=== PATIENT | female | born 2000 | race Caucasian/White ===

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

== ENCOUNTER → 2023-08-15 16:16 | Outpatient (CLI) | payer BC, OTHER, MEDICAID, SELFPAY ==
--- NOTE | 2023-08-15 16:22 | DI.RAD.S_ITS ---
PROCEDURE: XR KNEE RT 3V INDICATIONS: Right knee pain x2 years TECHNIQUE: 3 views of the knee were acquired. COMPARISON: None. FINDINGS: Bones: No fractures or dislocations. No suspicious bony lesions. Soft tissues: No joint effusion. No suspicious soft tissue calcifications. IMPRESSION: No acute bony abnormality or significant effusion. MRI could be considered for further evaluation. Dictated by: Ismael Coronado M.D. on 08/15/2023 at 20:48 Approved by: Ismael Coronado M.D. on 08/15/2023 at 20:49
== END ==
PROVIDERS: PCP Pediatrics; Referring Provider Physician Assistant; Visit Provider Physician Assistant
DX: M25.561 Pain in right knee (principal)
CPT/HCPCS: 73562

== ENCOUNTER 2024-01-27 14:36 | Emergency (ER) | payer BC, OTHER, MEDICAID, SELFPAY ==
[2024-01-27 15:11] VITALS: BP 118/79; PULSE 88; RESP 16; O2SAT 100; BMI 17.6
[2024-01-27 17:20] VITALS: BP 107/70; PULSE 74; RESP 16; O2SAT 100
--- NOTE | 2024-01-27 18:02 | DI.RAD.S_ITS ---
PROCEDURE: XR ACUTE ABDOMEN SERIES INDICATIONS: Vomiting blood TECHNIQUE: One view chest and two views of the abdomen were acquired. COMPARISON: None. FINDINGS: Surgical changes and devices: None. Chest: Lungs are clear. Heart size is normal. No pleural effusions. No pneumoperitoneum. Abdomen: Bowel gas pattern is nonobstructive. No suspicious calcifications. Visualized solid organ contours appear normal. Bones: No suspicious bony lesions. IMPRESSION: No acute cardiopulmonary process. Nonobstructive bowel gas pattern. Approved by: Francheska Jose M.D.,Ph.D. on 01/27/2024 at 20:03
--- NOTE | 2024-01-27 19:16 | PC.NURSE ---
This RN went in to introduce self and explain process to patient. Patient asked how long it was going to take, I educated I couldn't give a time estimate nor would she be called with the results from the xray she had already had taken. Patient stated that she didn't want to stay and would be leaving. Patient ambulated out of the department without difficulty.
--- NOTE | 2024-01-27 19:32 | PC.NURSE ---
This RN went in to introduce self and explain process to patient. Patient asked how long it was going to take, I educated I couldn't give a time estimate nor would see be called with the results from the xray she had already had taken. Patient stated she didn't want to stay and would be leaving. Patient ambulated out of the department without difficulty.
== END 2024-01-27 19:17 | disposition left against medical advice (07) ==
PROVIDERS: Emergency Provider Emergency Medicine; PCP Pediatrics
DX: K92.0 Hematemesis (principal)
CPT/HCPCS: 74022; 99281

== ENCOUNTER → 2024-04-05 09:13 | Outpatient (CLI) | payer BC, OTHER, MEDICAID, SELFPAY ==
[2024-04-05 09:57] LABS: Add Manual Diff / Slide Review NO; Basophils Absolute Auto 0 /uL (0-100); Basophils Percent Auto 0.9 % (0-2); Eosinophils Absolute Auto 200 /uL (0-450); Eosinophils Percent Auto 3.2 % (2-4); Hemoglobin 12.8 g/dL (12.0-16.0); Lymphocytes Absolute Auto 1600 /uL (1100-4500); Lymphocytes Percent Auto 28.9 % (25-40); Mean Corpuscular HGB Conc 33.8 % (30-36); Mean Corpuscular Hemoglobin 30.1 PG (26-34); Mean Corpuscular Volume 89.1 fL (80-100); Monocytes Absolute Auto 600 /uL (0-900); Monocytes Percent Auto 10.3 % (3-14); Neutrophils Absolute Auto 3100 /uL (1500-7000); Neutrophils Percent Auto 56.7 % (50-75); Platelet Count 242 X10^3/uL (150-400); Red Blood Cell Count 4.26 X10^6/uL (4.0-5.2); Red Cell Distribution Width 13.5 % (11.6-14.8); White Blood Cell Count 5.4 X10^3/uL (4.5-11.0)
[2024-04-05 10:19] LABS: Alanine Aminotransferase 14 IU/L (<35); Albumin 4.4 g/dL (3.5-5.0); Albumin Globulin Ratio 1.9 (1.0-2.8); Alkaline Phosphatase 45 U/L (38-126); Aspartate Aminotransferase 22 IU/L (14-36); BUN Creatinine Ratio 17.2 (6-22); Bilirubin Total 0.7 mg/dL (0.2-1.3); Blood Urea Nitrogen 11 mg/dL (7-17); Calcium 9.5 mg/dL (8.4-10.2); Carbon Dioxide 23 mmol/L (22-32); Chloride 106 mmol/L (98-107); Estimated Glomerular Filt Rate > 60 mL/min (>60); Globulin 2.3 g/dL (1.7-4.1); Glucose 86 mg/dL (70-100); HEMOLYSIS < 15 (0-50); Potassium 4.4 mmol/L (3.4-5.1); Sodium 136 mmol/L (137-145); Total Protein 6.7 g/dL (6.3-8.2)
[2024-04-05 10:45] LABS: TSH w/ Reflex to FT4 2.23 uIU/mL (0.47-4.68)
[2024-04-06 12:36] LABS: Interpretation Negative (Negative)
== END ==
PROVIDERS: PCP Family Medicine; Referring Provider Family Medicine; Visit Provider Family Medicine
DX: R11.0 Nausea (principal); R06.02 Shortness of breath; Z87.11 Personal history of peptic ulcer disease
CPT/HCPCS: 36415; 80053; 83013; 84443; 85025

== ENCOUNTER → 2024-04-10 15:12 | Outpatient (CLI) | payer BC, OTHER, MEDICAID, SELFPAY ==
--- NOTE | 2024-04-10 15:20 | DI.MRI.S_ITS ---
PROCEDURE: MR KNEE RT WO CON INDICATIONS: Chrocin right knee pain TECHNIQUE: Noncontrast sagittal PD fast spin echo and T2 fast spin echo with fat saturation, sagittal 3-D FLASH with fat saturation; coronal T1 spin echo and PD fast spin echo with fat saturation, and axial PD fast spin echo with fat saturation through the knee. COMPARISON: None. FINDINGS: Image quality: Excellent. Anterior cruciate ligament: Intact. Posterior cruciate ligament: Intact. Medial collateral ligament: Intact. Lateral collateral ligament: Intact. Medial meniscus: Fluid signal is seen at the superior meniscocapsular junction along the posterior horn of the medial meniscus, which could indicate meniscocapsular tearing. Lateral meniscus: Intact. Medial and lateral tendons: The semimembranosus tendon insertions appear intact. Visualized portions of the pes anserinus tendons appear normal. The popliteus tendon is intact. Iliotibial band appears normal. Anterior structures: The quadriceps and patellar tendons appear intact. No patellar subluxation. No femoral trochlear dysplasia or ventral trochlear prominence. No edema in the infrapatellar fat pad. Bones and cartilage: No bone marrow contusions or fractures. Medial femorotibial cartilage: No focal cartilage defect. Lateral femorotibial cartilage: No focal cartilage defect. Patellofemoral cartilage: No focal cartilage defect. Soft tissues: There is a small joint effusion. Trace medial popliteal cyst. The musculature surrounding the knee is normal in bulk. IMPRESSION: 1. Questionable partial meniscocapsular tearing at the posterior horn of the medial meniscus. 2. Cruciate and collateral ligaments are intact. No acute trabecular bone injury or focal cartilage defect. Lateral meniscus is intact. 3. Small joint effusion. Approved by: Edu Arnett M.D. on 04/12/2024 at 20:00
== END ==
LOC: MRI 15:17
PROVIDERS: PCP Family Medicine; Referring Provider Family Medicine; Visit Provider Family Medicine
DX: M25.561 Pain in right knee (principal); M25.461 Effusion, right knee
CPT/HCPCS: 73721

== ENCOUNTER → 2024-04-14 14:57 | Outpatient (CLI) | payer BC, OTHER, MEDICAID, SELFPAY | PROVIDERS: Family Provider Family Medicine; PCP Family Medicine; Referring Provider Family Medicine; Visit Provider Family Medicine | DX: R06.02 Shortness of breath (principal) | CPT/HCPCS: 94060; 94726; 94729 ==

== ENCOUNTER 2024-07-09 09:00 | Outpatient (RCR) | payer BC, OTHER, MEDICAID, SELFPAY ==
--- NOTE | 2024-04-16 15:47 | PT.OIE ---
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 Address: [address] [place] [address], [facility] Email: [email or web address] Physical Therapy Initial Evaluation PT-OP-A Visit Information Start: 04/16/24 07:28 Freq: Status: Active Protocol: Document 04/16/24 08:15 NM (Rec: 04/16/24 09:03 NM [id number]) Out-Patient Physical Therapy Visit Information Visit Information Visit Type Initial Evaluation Visit Note 30 visits max Visit Start Time 08:16 Visit Stop Time 09:00 Visit Number 1 Evaluation Information Evaluation Date 04/16/24 Precautions Precautions hx of osteochondritis dessicans of R knee PT-OP-B Current Condition Start: 04/16/24 07:28 Freq: Status: Active Protocol: Document 04/16/24 08:15 NM (Rec: 04/16/24 09:03 NM [id number]) Current Condition History of Current Condition Onset Date chronic, 10 years ago Current Complaints pain, limited ROM History of Current Condition Pt reports that she injured her R knee with hyperextension at 10 years ago, states dx with OCD. States that she did not have any bracing or crutches; no surgery, no other treatment. Her R knee is bothering her, since she stepped in a rabbit hole at time of injury. She states it began getting worse 5 years ago, states became more aware of it. She states that is when she got a job, she was standing more which caused pain. Pt is planning to get in August, wants to get checked out for her knee. Recently, reports no changes other than hurting more frequently with activity, which is what prompted her to seek help. Pt reports that her knee bothers her when she works out (squats, lunges), going up stairs, unable to run very much, difficulty with cutting or turning, hills, uneven grounds, jumping. Pt reports that her knee has catches 2x in past (not recent, states can move and it will unlock), within last 7 years her knee has given out at least 5 times, cracks but not painful. Pt has gone to chiropractor, has has manual treatment. She has not seen an orthopedist. States that knee brace (sock brace)- compression helps on worse days. Prior Treatments and Tests MRI March 2024: questionable partial meniscocapsular tearing at posterior horn of medial meniscus, intact cruciate and collateral ligaments, no acute trabecular bone injury or focal cartilage defect, small joint effusion Treatment Goals Patient/Caregiver Goals increase ROM, decrease discomfort levels Current Functional Impairments (Reported) Functional Limitations- Recreation/ work out (does not do a lot of Hobbies stretching)- every other day light gardening 3x/wk (1 year) one year ago 1x/day (at home- body wt) PT-OP-C Subjective Start: 04/16/24 07:28 Freq: Status: Active Protocol: Document 04/16/24 08:15 NM (Rec: 04/16/24 09:03 NM [id number]) OP-PT Subjective Patient Comments Patient Comments Pt consents to participate in evaluation Patient Questionnaires Lower Extremity Functional Scale LEFS Score 49/80 OP-PT Pain Assessment Location R knee Pain Location Details anterior, near patellar tendon Intensity 5 Scale Used Numeric (0 - 10) Description Aching,Dull,Sharp Description- Other average 3/10 Frequency Frequent Pain Duration 30 min Pain Aggravating Factors ADL's,Activity,Exercise, Standing,Walking,Stair Climbing,Bending,Lifting Other Pain Aggravating Factors lunges Pain Alleviating Factors Massage,Rest Other Pain Alleviating Factors stretching PT-OP-E Functional Tests Start: 04/16/24 07:28 Freq: Status: Active Protocol: Document 04/16/24 08:15 NM (Rec: 04/16/24 09:03 NM [id number]) Functional Tests Squat Test Score 1 Comments pain immediately after in anterior PT-OP-F Manual Assessment Start: 04/16/24 07:28 Freq: Status: Active Protocol: Document 04/16/24 08:15 NM (Rec: 04/16/24 09:03 NM [id number]) Manual Assessments Soft Tissue Assessment Soft Tissue Mobility Assessment Increased HS tightness bilaterally, R>L; small effusion around R knee Joint Mobility Assessment Joint Mobility Assessment Lacking R knee extension in stance, limited patellar mobility PT-OP-G Mobility & Gait Start: 04/16/24 07:28 Freq: Status: Active Protocol: Document 04/16/24 08:15 NM (Rec: 04/16/24 09:03 NM [id number]) OP Gait Assessment Gait Gait Assistance Required: Independent Distance (Feet) 150 Assistive Devices Assistive Device None Gait Deviations General Gait Pattern Antalgic Factors Limiting Gait Function Factors Limiting Gait Function Decreased Activity Tolerance, Decreased Strength,Limited Range of Motion Comments Gait Comments Demos slight external rotation of R knee, slight decrease in foot clearance Stair Climbing Evaluation Technique/Endurance Stair Climbing Technique Step Over Step Number of Steps Climbed 4 Stair Climbing Set # Repetitions (reps) 1 Comments Stair Climbing Comments Demos valgus of R knee, pain with stepping down fro 4 and 6 steps. Mild pain with step up PT-OP-J Posture/Palpation/Skin Start: 04/16/24 07:28 Freq: Status: Active Protocol: Document 04/16/24 08:15 NM (Rec: 04/16/24 09:03 NM [id number]) Posture Evaluation Position Standing Head/C-Spine Posture Forward Head Pelvis Posture Anteriorly Tilted Weight Distribution Balanced Hip Posture (L) Externally Rotated,(R) Externally Rotated Knee Posture (L) Genu Valgus,(R) Genu Valgus,(R) Excess Flexion Patellar Posture (L) Superior,(R) Superior,(R) Medially Tilted Ankle/Foot Posture (L) Neutral,(R) Neutral Comments Posture Comments less knee ext R Palpation Assessment Location R knee Palpation Details no joint line tenderness tenderness only patellar tendon, inferior pole of patellar, peripatellar PT-OP-K Range of Motion Start: 04/16/24 07:28 Freq: Status: Active Protocol: Document 04/16/24 08:15 NM (Rec: 04/16/24 09:03 NM [id number]) Hip Goniometric Range of Motion Hip Right Flexion w/Knee Flexed 110 Internal Rotation 35 External Rotation 30 Left Flexion w/Knee Flexed 120 Internal Rotation 40 External Rotation 30 Knee Goniometric Range of Motion Knee Right Flexion Active (degrees) 145 Extension Active (degrees) 6 Comments HS length 110 in fernanda position Left Flexion Active (degrees) 146 Extension Active (degrees) 0 Comments HS length 105 deg in fernanda position Ankle and Foot Goniometric Range of Motion Ankle and Foot Right Dorsiflexion with Knee Flexed 6 Left Dorsiflexion with Knee Flexed 5 PT-OP-L Special Tests Start: 04/16/24 07:28 Freq: Status: Active Protocol: Document 04/16/24 08:15 NM (Rec: 04/16/24 09:03 NM [id number]) Special Tests Knee Special Tests Samantha Test Test Results + Comments clicking present but no increase in pain Apley's Compression Test Results - PT-OP-M Strength Start: 04/16/24 07:28 Freq: Status: Active Protocol: Document 04/16/24 08:15 NM (Rec: 04/16/24 09:03 NM [id number]) Hip Strength Hip Manual Muscle Testing Right Flexion (L2) 4- Good- Extension (S1) 4- Good- Abduction 4- Good- Adduction 4 Good External Rotation 4 Good Internal Rotation 4 Good Left Flexion (L2) 4- Good- Extension (S1) 4 Good Abduction 4 Good Adduction 4- Good- External Rotation 4 Good Internal Rotation 4 Good Knee Strength Knee Manual Muscle Testing Right Flexion (S2) 4 Good Extension (L3) 4 Good Comments pain with knee extension at patellar tendon Left Flexion (S2) 4 Good Extension (L3) 4 Good PT-OP-Q Treatments Start: 04/16/24 07:28 Freq: Status: Active Protocol: Document 04/16/24 08:15 NM (Rec: 04/16/24 09:03 NM [id number]) Therapeutic Exercises Supine Exercises HS stretch Supine Exercise Name HEP Side right Equipment Used strap Reps/Minutes 60 Comments cueing for form Sitting Exercises quad set Sitting Exercise Name HEP Side right Equipment Used towel roll under knee Reps/Minutes 10x3 Comments cued pain free submaximal contraction heel slides Sitting Exercise Name AROM > AAROM Side right Equipment Used strap assist, pillow case at foot Reps/Minutes 10 Comments cued remain pain free with flex > ext transition Self-Care/Home Management Treatment Education Patient Education Joint Protection,Pain Management Other Education Educated to limit squatting, lunges, running due to hx of OCD; recommended to perform biking and non-aggravating activities PT-OP-T Assessment and Plan Start: 04/16/24 07:28 Freq: Status: Active Protocol: Document 04/16/24 08:15 NM (Rec: 04/16/24 09:03 NM [id number]) Physical Therapy Assessment Rehab Potential Rehabilitation Potential Good Evaluation Complexity Number of Personal Factors/Comorbidities 3 or More Number of Body Systems Impaired 3 Clinical Presentation at Evaluation Stable Impairments Impairments Activity Tolerance,Balance, Functional Activities, Functional Mobility,Gait,Pain, Posture,ROM,Sensation,Soft Tissue Mobility,Strength, Transfers Goals Five Impairment pain with stairs Short Term Goal (STG) Pt will be able to perform at least 8 step ups and step downs with R knee pain <5/10 in order to demonstrate improved form and symptom management STG Duration 8 weeks Intermediate Goal (LTG) Pt will report no limitation while performing standard flight of stairs or when ambulating on uneven surfaces in order to demonstrate improved symptom management LTG Duration 12 weeks Four Impairment pain at rest and with activity Short Term Goal (STG) Pt will report < 3/10 R knee pain at rest to demonstrate improved symptom management STG Duration 8 weeks Senior Mechanical Technician Goal (LTG) Pt will report < 3/10 R knee pain with activity to demonstrate improved symptom management LTG Duration 12 weeks Three Impairment pain with exercise Short Term Goal (STG) Pt will be provided education on safe exercise with HEP and will report compliance with HEP at least 3x/wk in order to maximize progression with PT. STG Duration 3 weeks Intermediate Goal (LTG) Pt will report compliance with HEP or independent exercise at least 3x/wk in order to demonstrate improved carryover and maintenance with progression LTG Duration 12 weeks Two Impairment strength R knee Short Term Goal (STG) Pt will improve R knee flexion /extension and R hip flexion/ abduction/extension strength to at least 4+/5 MMT in order to demonstrate increased strength for exercise and gait STG Duration 8 weeks Intermediate Goal (LTG) Pt will improve R knee flexion /extension and R hip flexion/ abduction/extension strength to at least 5/5 MMT in order to demonstrate increased strength for exercise and gait LTG Duration 12 weeks One Impairment R knee extension AROM limited to 6 deg Short Term Goal (STG) Pt will improve R knee extension AROM to at least 3 deg in order to demonstrate improved TKE for gait STG Duration 6 weeks Senior Mechanical Technician Goal (LTG) Pt will improve R knee extension AROM to <3 deg in order to demonstrate improved TKE for gait LTG Duration 12 weeks Assessment Summary Assessment Pt is a 24 y.o. female presenting with chronic R knee pain following injury 10 years ago. Pt was diagnosed following injury with osteochondritis dessicans, but she did not have any further intervention. Pt currently has impairments with ROM, strength, gait, balance, activity tolerance, pain management, exercise, and QOL. She has mild limitations in R knee extension, and she has pain with resisted knee extension. Pt's symptoms are focused near her patellar tendon and under the patella. She had had both radiographs and MRI, which indicate possible pathology of posterior horn of her medial meniscus. PT educated pt on exam findings and plan of care . Pt would benefit from skilled PT for R knee mobility , progressive BLE strengthening, flexibility, and progression into non- aggravating exercise in order to improve activity tolerance and symptom management. Physical Therapy Plan Frequency and Duration Frequency of Treatment 1-2x/wk Duration of treatment (weeks) 12 Plan of Care Start Date 04/16/24 Plan of Care End Date 07/09/24 Therapeutic Interventions Therapeutic Interventions Balance Training,Gait Training ,Home Exercise Program,Joint Mobilizations,Manual Therapy, Neuromuscular Re-education, Orthotic/Prosthetic Management ,Patient/Caregiver Education, Self-Care/Home Management, Sensory Integration,Soft Tissue Mobilization,Taping, Therapeutic Activities, Therapeutic Exercises Modalities Cold Pack/Ice Massage,Electric Stimulation,Hot Packs, Ultrasound Next Visit Focus/Plan Next Note Type Treatment Note Next Visit Plan SAQ vs LAQ, sidelying hip abduction, squat retraining, heel slides, bridge, quad and HS stretch Manual: STM and joint mobilizations Plan of care: proprioception
--- NOTE | 2024-04-20 08:58 | PT.OTN ---
Current Diagnoses Pain in unspecified knee (04/20/24) Stiffness of right knee, not elsewhere classified (04/20/24) Other lack of coordination (04/20/24) Weakness (04/20/24) Physical Therapy Treatment Note PT-OP-A Visit Information Start: 04/16/24 07:28 Freq: Status: Active Protocol: Document 04/20/24 08:11 NM (Rec: 04/20/24 08:58 NM [id number]) Out-Patient Physical Therapy Visit Information Visit Information Visit Type Treatment Note Visit Note 30 visits max Visit Start Time 08:15 Visit Stop Time 08:55 Visit Number 2 Evaluation Information Evaluation Date 04/16/24 Precautions Precautions hx of osteochondritis dessicans of R knee PT-OP-B Current Condition Start: 04/16/24 07:28 Freq: Status: Active Protocol: Document 04/16/24 08:15 NM (Rec: 04/16/24 09:03 NM [id number]) Current Condition History of Current Condition Onset Date chronic, 10 years ago Current Complaints pain, limited ROM History of Current Condition Pt reports that she injured her R knee with hyperextension at 10 years ago, states dx with OCD. States that she did not have any bracing or crutches; no surgery, no other treatment. Her R knee is bothering her, since she stepped in a rabbit hole at time of injury. She states it began getting worse 5 years ago, states became more aware of it. She states that is when she got a job, she was standing more which caused pain. Pt is planning to get in August, wants to get checked out for her knee. Recently, reports no changes other than hurting more frequently with activity, which is what prompted her to seek help. Pt reports that her knee bothers her when she works out (squats, lunges), going up stairs, unable to run very much, difficulty with cutting or turning, hills, uneven grounds, jumping. Pt reports that her knee has catches 2x in past (not recent, states can move and it will unlock), within last 7 years her knee has given out at least 5 times, cracks but not painful. Pt has gone to chiropractor, has has manual treatment. She has not seen an orthopedist. States that knee brace (sock brace)- compression helps on worse days. Prior Treatments and Tests MRI March 2024: questionable partial meniscocapsular tearing at posterior horn of medial meniscus, intact cruciate and collateral ligaments, no acute trabecular bone injury or focal cartilage defect, small joint effusion Treatment Goals Patient/Caregiver Goals increase ROM, decrease discomfort levels Current Functional Impairments (Reported) Functional Limitations- Recreation/ work out (does not do a lot of Hobbies stretching)- every other day light gardening 3x/wk (1 year) one year ago 1x/day (at home- body wt) PT-OP-C Subjective Start: 04/16/24 07:28 Freq: Status: Active Protocol: Document 04/20/24 08:11 NM (Rec: 04/20/24 08:58 NM [id number]) OP-PT Subjective Patient Comments Patient Comments Pt reports that she had a little pain after the evaluation, but states resolved quickly. Reports HEP was helpful PT-OP-E Functional Tests Start: 04/16/24 07:28 Freq: Status: Active Protocol: Document 04/16/24 08:15 NM (Rec: 04/16/24 09:03 NM [id number]) Functional Tests Squat Test Score 1 Comments pain immediately after in anterior PT-OP-F Manual Assessment Start: 04/16/24 07:28 Freq: Status: Active Protocol: Document 04/16/24 08:15 NM (Rec: 04/16/24 09:03 NM [id number]) Manual Assessments Soft Tissue Assessment Soft Tissue Mobility Assessment Increased HS tightness bilaterally, R>L; small effusion around R knee Joint Mobility Assessment Joint Mobility Assessment Lacking R knee extension in stance, limited patellar mobility PT-OP-G Mobility & Gait Start: 04/16/24 07:28 Freq: Status: Active Protocol: Document 04/16/24 08:15 NM (Rec: 04/16/24 09:03 NM [id number]) OP Gait Assessment Gait Gait Assistance Required: Independent Distance (Feet) 150 Assistive Devices Assistive Device None Gait Deviations General Gait Pattern Antalgic Factors Limiting Gait Function Factors Limiting Gait Function Decreased Activity Tolerance, Decreased Strength,Limited Range of Motion Comments Gait Comments Demos slight external rotation of R knee, slight decrease in foot clearance Stair Climbing Evaluation Technique/Endurance Stair Climbing Technique Step Over Step Number of Steps Climbed 4 Stair Climbing Set # Repetitions (reps) 1 Comments Stair Climbing Comments Demos valgus of R knee, pain with stepping down fro 4 and 6 steps. Mild pain with step up PT-OP-J Posture/Palpation/Skin Start: 04/16/24 07:28 Freq: Status: Active Protocol: Document 04/16/24 08:15 NM (Rec: 04/16/24 09:03 NM [id number]) Posture Evaluation Position Standing Head/C-Spine Posture Forward Head Pelvis Posture Anteriorly Tilted Weight Distribution Balanced Hip Posture (L) Externally Rotated,(R) Externally Rotated Knee Posture (L) Genu Valgus,(R) Genu Valgus,(R) Excess Flexion Patellar Posture (L) Superior,(R) Superior,(R) Medially Tilted Ankle/Foot Posture (L) Neutral,(R) Neutral Comments Posture Comments less knee ext R Palpation Assessment Location R knee Palpation Details no joint line tenderness tenderness only patellar tendon, inferior pole of patellar, peripatellar PT-OP-K Range of Motion Start: 04/16/24 07:28 Freq: Status: Active Protocol: Document 04/16/24 08:15 NM (Rec: 04/16/24 09:03 NM [id number]) Hip Goniometric Range of Motion Hip Right Flexion w/Knee Flexed 110 Internal Rotation 35 External Rotation 30 Left Flexion w/Knee Flexed 120 Internal Rotation 40 External Rotation 30 Knee Goniometric Range of Motion Knee Right Flexion Active (degrees) 145 Extension Active (degrees) 6 Comments HS length 110 in fernanda position Left Flexion Active (degrees) 146 Extension Active (degrees) 0 Comments HS length 105 deg in fernanda position Ankle and Foot Goniometric Range of Motion Ankle and Foot Right Dorsiflexion with Knee Flexed 6 Left Dorsiflexion with Knee Flexed 5 PT-OP-L Special Tests Start: 04/16/24 07:28 Freq: Status: Active Protocol: Document 04/16/24 08:15 NM (Rec: 04/16/24 09:03 NM [id number]) Special Tests Knee Special Tests Samantha Test Test Results + Comments clicking present but no increase in pain Apley's Compression Test Results - PT-OP-M Strength Start: 04/16/24 07:28 Freq: Status: Active Protocol: Document 04/16/24 08:15 NM (Rec: 04/16/24 09:03 NM [id number]) Hip Strength Hip Manual Muscle Testing Right Flexion (L2) 4- Good- Extension (S1) 4- Good- Abduction 4- Good- Adduction 4 Good External Rotation 4 Good Internal Rotation 4 Good Left Flexion (L2) 4- Good- Extension (S1) 4 Good Abduction 4 Good Adduction 4- Good- External Rotation 4 Good Internal Rotation 4 Good Knee Strength Knee Manual Muscle Testing Right Flexion (S2) 4 Good Extension (L3) 4 Good Comments pain with knee extension at patellar tendon Left Flexion (S2) 4 Good Extension (L3) 4 Good PT-OP-Q Treatments Start: 04/16/24 07:28 Freq: Status: Active Protocol: Document 04/20/24 08:11 NM (Rec: 04/20/24 08:58 NM [id number]) Therapeutic Exercises Supine Exercises bridge Supine Exercise Name HEP Side bilateral Resistance level 1 band at thighs for 3rd set Equipment Used with ppt to create neutral spine Reps/Minutes 3x10 with 3 hold Comments pain free at knee; cued for form tiffany neutral spine fernanda stretch Supine Exercise Name HEP Side bilateral Reps/Minutes 60 ea Comments pain free HS stretch Supine Exercise Name HEP review Side bilateral Equipment Used strap Reps/Minutes 60 Comments cueing for form; better tolerance today than at IE Sidelying Exercises hip abduction Sidelying Exercise Name with hip IR and ankle DF (HEP) Side bilateral Reps/Minutes 2x10 with 3 concentric, 1 hold, 3 eccentric Comments challenging Sitting Exercises LAQ Side bilateral Resistance AROM Reps/Minutes 2x10x5 Comments pain free; feels in lateral hip quad set Sitting Exercise Name HEP review Side right Equipment Used towel roll under knee Reps/Minutes 15x5 Comments cued pain free submaximal contraction; improved TKE Manual Therapy Treatment Consent Patient gave verbal consent for manual Yes treatment Soft Tissue Mobilization R knee Body Location HS, quad, hip flexors, peripatellar Mobilization Type Rolling,Strumming Intensity/Depth Moderate Body Position Supine Comments Performed distal > proximal prior to exercise and stretching. Tenderness near distal ITB. Monitored for pain Joint Mobilizations R knee Joint tibiofemoral, patellar Direction AP w/ ER; superior/inferior, lateral tilt Grade III Body Position Supine Reps/Duration 10, 15 ea Comments To improve extension ROM and patellar motion. Demos medial patellar tilt, limited patellar mobility PT-OP-T Assessment and Plan Start: 04/16/24 07:28 Freq: Status: Active Protocol: Document 04/20/24 08:11 NM (Rec: 04/20/24 08:58 NM [id number]) Physical Therapy Assessment Goals Five Impairment pain with stairs Short Term Goal (STG) Pt will be able to perform at least 8 step ups and step downs with R knee pain <5/10 in order to demonstrate improved form and symptom management STG Duration 8 weeks Assisted Goal (LTG) Pt will report no limitation while performing standard flight of stairs or when ambulating on uneven surfaces in order to demonstrate improved symptom management LTG Duration 12 weeks Four Impairment pain at rest and with activity Short Term Goal (STG) Pt will report < 3/10 R knee pain at rest to demonstrate improved symptom management STG Duration 8 weeks Assisted Goal (LTG) Pt will report < 3/10 R knee pain with activity to demonstrate improved symptom management LTG Duration 12 weeks Three Impairment pain with exercise Short Term Goal (STG) Pt will be provided education on safe exercise with HEP and will report compliance with HEP at least 3x/wk in order to maximize progression with PT. STG Duration 3 weeks Programming Director Goal (LTG) Pt will report compliance with HEP or independent exercise at least 3x/wk in order to demonstrate improved carryover and maintenance with progression LTG Duration 12 weeks Two Impairment strength R knee Short Term Goal (STG) Pt will improve R knee flexion /extension and R hip flexion/ abduction/extension strength to at least 4+/5 MMT in order to demonstrate increased strength for exercise and gait STG Duration 8 weeks Assisted Goal (LTG) Pt will improve R knee flexion /extension and R hip flexion/ abduction/extension strength to at least 5/5 MMT in order to demonstrate increased strength for exercise and gait LTG Duration 12 weeks One Impairment R knee extension AROM limited to 6 deg Short Term Goal (STG) Pt will improve R knee extension AROM to at least 3 deg in order to demonstrate improved TKE for gait STG Duration 6 weeks Programming Director Goal (LTG) Pt will improve R knee extension AROM to <3 deg in order to demonstrate improved TKE for gait LTG Duration 12 weeks Assessment Summary Assessment Pt tolerated session well, reports no increased pain or discomfort during session. Demos full TKE today, measuring 0 deg R knee extension post manual treatment. Pt continues to exhibit decreased patellar mobility and slight bogginess around patella. Initiated glute and quad strengthening. Trialed bridge for glute activation with less impact on R knee, progressing to level 1 band. Pt challenged with maintaining control during sidelying hip abduction. Pt would benefit from skilled PT for R knee mobility and progressive strengthening to improve symptom management and functional mobility to return to activity, if appropriate. Physical Therapy Plan Frequency and Duration Frequency of Treatment 1-2x/wk Duration of treatment (weeks) 12 Plan of Care Start Date 04/16/24 Plan of Care End Date 07/09/24 Therapeutic Interventions Therapeutic Interventions Balance Training,Gait Training ,Home Exercise Program,Joint Mobilizations,Manual Therapy, Neuromuscular Re-education, Orthotic/Prosthetic Management ,Patient/Caregiver Education, Self-Care/Home Management, Sensory Integration,Soft Tissue Mobilization,Taping, Therapeutic Activities, Therapeutic Exercises Modalities Cold Pack/Ice Massage,Electric Stimulation,Hot Packs, Ultrasound Next Visit Focus/Plan Next Note Type Treatment Note Next Visit Plan Review bridge (add band), standing TKE, heel slides, LAQ . sidelying hip abduction, heel slides, bridge, quad and HS stretch Manual: STM and joint mobilizations Plan of care: proprioception, squat retraining (future)
--- NOTE | 2024-04-28 12:03 | PT.OTN ---
Current Diagnoses Pain in unspecified knee (04/28/24) Stiffness of right knee, not elsewhere classified (04/28/24) Other lack of coordination (04/28/24) Weakness (04/28/24) Physical Therapy Treatment Note PT-OP-A Visit Information Start: 04/16/24 07:28 Freq: Status: Active Protocol: Document 04/28/24 11:17 NM (Rec: 04/28/24 12:03 NM [id number]) Out-Patient Physical Therapy Visit Information Visit Information Visit Type Treatment Note Visit Note 30 visits max Visit Start Time 11:19 Visit Stop Time 11:59 Visit Number 3 Evaluation Information Evaluation Date 04/16/24 Precautions Precautions hx of osteochondritis dessicans of R knee PT-OP-B Current Condition Start: 04/16/24 07:28 Freq: Status: Active Protocol: Document 04/16/24 08:15 NM (Rec: 04/16/24 09:03 NM [id number]) Current Condition History of Current Condition Onset Date chronic, 10 years ago Current Complaints pain, limited ROM History of Current Condition Pt reports that she injured her R knee with hyperextension at 10 years ago, states dx with OCD. States that she did not have any bracing or crutches; no surgery, no other treatment. Her R knee is bothering her, since she stepped in a rabbit hole at time of injury. She states it began getting worse 5 years ago, states became more aware of it. She states that is when she got a job, she was standing more which caused pain. Pt is planning to get in August, wants to get checked out for her knee. Recently, reports no changes other than hurting more frequently with activity, which is what prompted her to seek help. Pt reports that her knee bothers her when she works out (squats, lunges), going up stairs, unable to run very much, difficulty with cutting or turning, hills, uneven grounds, jumping. Pt reports that her knee has catches 2x in past (not recent, states can move and it will unlock), within last 7 years her knee has given out at least 5 times, cracks but not painful. Pt has gone to chiropractor, has has manual treatment. She has not seen an orthopedist. States that knee brace (sock brace)- compression helps on worse days. Prior Treatments and Tests MRI March 2024: questionable partial meniscocapsular tearing at posterior horn of medial meniscus, intact cruciate and collateral ligaments, no acute trabecular bone injury or focal cartilage defect, small joint effusion Treatment Goals Patient/Caregiver Goals increase ROM, decrease discomfort levels Current Functional Impairments (Reported) Functional Limitations- Recreation/ work out (does not do a lot of Hobbies stretching)- every other day light gardening 3x/wk (1 year) one year ago 1x/day (at home- body wt) PT-OP-C Subjective Start: 04/16/24 07:28 Freq: Status: Active Protocol: Document 04/28/24 11:17 NM (Rec: 04/28/24 12:03 NM [id number]) OP-PT Subjective Patient Comments Patient Comments Pt reports that her R knee feels sore after walking around town while on vacation, 2 hours; states flat ground. She wore knee brace when ambulating. Pt reports that she did not do her exercises very much due to vacation. States sore after last session , states resolved within 24-48 hours. PT-OP-E Functional Tests Start: 04/16/24 07:28 Freq: Status: Active Protocol: Document 04/16/24 08:15 NM (Rec: 04/16/24 09:03 NM [id number]) Functional Tests Squat Test Score 1 Comments pain immediately after in anterior PT-OP-F Manual Assessment Start: 04/16/24 07:28 Freq: Status: Active Protocol: Document 04/16/24 08:15 NM (Rec: 04/16/24 09:03 NM [id number]) Manual Assessments Soft Tissue Assessment Soft Tissue Mobility Assessment Increased HS tightness bilaterally, R>L; small effusion around R knee Joint Mobility Assessment Joint Mobility Assessment Lacking R knee extension in stance, limited patellar mobility PT-OP-G Mobility & Gait Start: 04/16/24 07:28 Freq: Status: Active Protocol: Document 04/16/24 08:15 NM (Rec: 04/16/24 09:03 NM [id number]) OP Gait Assessment Gait Gait Assistance Required: Independent Distance (Feet) 150 Assistive Devices Assistive Device None Gait Deviations General Gait Pattern Antalgic Factors Limiting Gait Function Factors Limiting Gait Function Decreased Activity Tolerance, Decreased Strength,Limited Range of Motion Comments Gait Comments Demos slight external rotation of R knee, slight decrease in foot clearance Stair Climbing Evaluation Technique/Endurance Stair Climbing Technique Step Over Step Number of Steps Climbed 4 Stair Climbing Set # Repetitions (reps) 1 Comments Stair Climbing Comments Demos valgus of R knee, pain with stepping down fro 4 and 6 steps. Mild pain with step up PT-OP-J Posture/Palpation/Skin Start: 04/16/24 07:28 Freq: Status: Active Protocol: Document 04/16/24 08:15 NM (Rec: 04/16/24 09:03 NM [id number]) Posture Evaluation Position Standing Head/C-Spine Posture Forward Head Pelvis Posture Anteriorly Tilted Weight Distribution Balanced Hip Posture (L) Externally Rotated,(R) Externally Rotated Knee Posture (L) Genu Valgus,(R) Genu Valgus,(R) Excess Flexion Patellar Posture (L) Superior,(R) Superior,(R) Medially Tilted Ankle/Foot Posture (L) Neutral,(R) Neutral Comments Posture Comments less knee ext R Palpation Assessment Location R knee Palpation Details no joint line tenderness tenderness only patellar tendon, inferior pole of patellar, peripatellar PT-OP-K Range of Motion Start: 04/16/24 07:28 Freq: Status: Active Protocol: Document 04/16/24 08:15 NM (Rec: 04/16/24 09:03 NM [id number]) Hip Goniometric Range of Motion Hip Right Flexion w/Knee Flexed 110 Internal Rotation 35 External Rotation 30 Left Flexion w/Knee Flexed 120 Internal Rotation 40 External Rotation 30 Knee Goniometric Range of Motion Knee Right Flexion Active (degrees) 145 Extension Active (degrees) 6 Comments HS length 110 in fernanda position Left Flexion Active (degrees) 146 Extension Active (degrees) 0 Comments HS length 105 deg in fernanda position Ankle and Foot Goniometric Range of Motion Ankle and Foot Right Dorsiflexion with Knee Flexed 6 Left Dorsiflexion with Knee Flexed 5 PT-OP-L Special Tests Start: 04/16/24 07:28 Freq: Status: Active Protocol: Document 04/16/24 08:15 NM (Rec: 04/16/24 09:03 NM [id number]) Special Tests Knee Special Tests Samantha Test Test Results + Comments clicking present but no increase in pain Apley's Compression Test Results - PT-OP-M Strength Start: 04/16/24 07:28 Freq: Status: Active Protocol: Document 04/16/24 08:15 NM (Rec: 04/16/24 09:03 NM [id number]) Hip Strength Hip Manual Muscle Testing Right Flexion (L2) 4- Good- Extension (S1) 4- Good- Abduction 4- Good- Adduction 4 Good External Rotation 4 Good Internal Rotation 4 Good Left Flexion (L2) 4- Good- Extension (S1) 4 Good Abduction 4 Good Adduction 4- Good- External Rotation 4 Good Internal Rotation 4 Good Knee Strength Knee Manual Muscle Testing Right Flexion (S2) 4 Good Extension (L3) 4 Good Comments pain with knee extension at patellar tendon Left Flexion (S2) 4 Good Extension (L3) 4 Good PT-OP-Q Treatments Start: 04/16/24 07:28 Freq: Status: Active Protocol: Document 04/28/24 11:17 NM (Rec: 04/28/24 12:03 NM [id number]) Therapeutic Exercises Supine Exercises bridge Supine Exercise Name HEP review Side bilateral Resistance level 2 band at thighs Equipment Used with ppt Reps/Minutes 2x15 Comments pain free at knee Sitting Exercises sit to stand Side bilateral Resistance level 2 band at thighs Reps/Minutes 2x10 Comments pain free, no joint clicking LAQ Sitting Exercise Name HEP updated to include level 2 band (no HO issued) Side bilateral Resistance level 1 band at ankles Reps/Minutes 2x15 w/ 2 Comments challenging, fatiguing, no clicking at joint; slight lack TKE Standing Exercises side steps Side bilateral Resistance level 2 band at ankles Equipment Used squat position Reps/Minutes 2x15 ft Comments cued hip hinge to reduce ant knee stress glute medius isometric Side bilateral Equipment Used small ball at wall Reps/Minutes 60 Comments pain free; feels good activation in glute TKE Standing Exercise Name HEP (switched out for quad set ) Side right Resistance level 2 band at knee Reps/Minutes 10x1, 10x5 Comments pain free, no joint clicking Manual Therapy Treatment Consent Patient gave verbal consent for manual Yes treatment Soft Tissue Mobilization R knee Body Location HS, quad, hip flexors, peripatellar Mobilization Type Rolling,Strumming Intensity/Depth Moderate Body Position Supine Comments Performed distal > proximal prior to exercise and stretching. Tenderness near distal ITB. Monitored for pain Joint Mobilizations R knee Joint tibiofemoral, patellar Direction AP w/ ER; superior/inferior, lateral tilt Grade III Body Position Supine Reps/Duration 2x30 ea Comments To improve extension ROM and patellar motion. Demos medial patellar tilt, limited patellar mobility lacking 5 deg ext AROM prior to mobilization, lacking 3 deg post mobilization PT-OP-T Assessment and Plan Start: 04/16/24 07:28 Freq: Status: Active Protocol: Document 04/28/24 11:17 NM (Rec: 04/28/24 12:03 NM [id number]) Physical Therapy Assessment Goals Five Impairment pain with stairs Short Term Goal (STG) Pt will be able to perform at least 8 step ups and step downs with R knee pain <5/10 in order to demonstrate improved form and symptom management STG Duration 8 weeks Tripoler Goal (LTG) Pt will report no limitation while performing standard flight of stairs or when ambulating on uneven surfaces in order to demonstrate improved symptom management LTG Duration 12 weeks Four Impairment pain at rest and with activity Short Term Goal (STG) Pt will report < 3/10 R knee pain at rest to demonstrate improved symptom management STG Duration 8 weeks Tripoler Goal (LTG) Pt will report < 3/10 R knee pain with activity to demonstrate improved symptom management LTG Duration 12 weeks Three Impairment pain with exercise Short Term Goal (STG) Pt will be provided education on safe exercise with HEP and will report compliance with HEP at least 3x/wk in order to maximize progression with PT. STG Duration 3 weeks Tripoler Goal (LTG) Pt will report compliance with HEP or independent exercise at least 3x/wk in order to demonstrate improved carryover and maintenance with progression LTG Duration 12 weeks Two Impairment strength R knee Short Term Goal (STG) Pt will improve R knee flexion /extension and R hip flexion/ abduction/extension strength to at least 4+/5 MMT in order to demonstrate increased strength for exercise and gait STG Duration 8 weeks Mcfp Goal (LTG) Pt will improve R knee flexion /extension and R hip flexion/ abduction/extension strength to at least 5/5 MMT in order to demonstrate increased strength for exercise and gait LTG Duration 12 weeks One Impairment R knee extension AROM limited to 6 deg Short Term Goal (STG) Pt will improve R knee extension AROM to at least 3 deg in order to demonstrate improved TKE for gait STG Duration 6 weeks Mcfp Goal (LTG) Pt will improve R knee extension AROM to <3 deg in order to demonstrate improved TKE for gait LTG Duration 12 weeks Assessment Summary Assessment Pt tolerated session well, no pain with exercises or any reports of R knee clicking or crepitus. Pt with good tolerance for progression with knee extension strengthening for TKE and LAQ. Good glute activation with STS, glute isometric, and side steps. Pt challenged with single leg stability. Still lacking end range R knee extension by 3 deg, improved with joint mobilization. Pt would benefit from skilled PT for R knee flexibility and progressive BLE strengthening, in addition to single leg stability to improve ROM and functional strength to participate in exercise more fully. Physical Therapy Plan Frequency and Duration Frequency of Treatment 1-2x/wk Duration of treatment (weeks) 12 Plan of Care Start Date 04/16/24 Plan of Care End Date 07/09/24 Therapeutic Interventions Therapeutic Interventions Balance Training,Gait Training ,Home Exercise Program,Joint Mobilizations,Manual Therapy, Neuromuscular Re-education, Orthotic/Prosthetic Management ,Patient/Caregiver Education, Self-Care/Home Management, Sensory Integration,Soft Tissue Mobilization,Taping, Therapeutic Activities, Therapeutic Exercises Modalities Cold Pack/Ice Massage,Electric Stimulation,Hot Packs, Ultrasound Next Visit Focus/Plan Next Note Type Treatment Note Next Visit Plan Trial taping knee for fat pad vs stability. Normalize ROM ( ext and pain free flex). Adjust HEP as needed Trial SL bridge, standing glute med isometric, heel slides, quad and HS stretch, TKE with band as needed, trial wall squat w/ ball; progress to step up/back, SL stability, SL RDL; hip 3 way w / slider Manual: STM and joint mobilizations Plan of care: proprioception, squat retraining (future)
--- NOTE | 2024-04-30 09:14 | PT.OTN ---
Current Diagnoses Pain in unspecified knee (04/30/24) Stiffness of right knee, not elsewhere classified (04/30/24) Other lack of coordination (04/30/24) Weakness (04/30/24) Physical Therapy Treatment Note PT-OP-A Visit Information Start: 04/16/24 07:28 Freq: Status: Active Protocol: Document 04/30/24 08:11 AB (Rec: 04/30/24 09:13 AB [id number]) Out-Patient Physical Therapy Visit Information Visit Information Visit Type Treatment Note Visit Note 30 visits max Visit Start Time 08:17 Visit Stop Time 09:02 Visit Number 4 Number of PRODUCTION SKI REPAIRER Visits 1 Evaluation Information Evaluation Date 04/16/24 Precautions Precautions hx of osteochondritis dessicans of R knee4 PT-OP-B Current Condition Start: 04/16/24 07:28 Freq: Status: Active Protocol: Document 04/16/24 08:15 NM (Rec: 04/16/24 09:03 NM [id number]) Current Condition History of Current Condition Onset Date chronic, 10 years ago Current Complaints pain, limited ROM History of Current Condition Pt reports that she injured her R knee with hyperextension at 10 years ago, states dx with OCD. States that she did not have any bracing or crutches; no surgery, no other treatment. Her R knee is bothering her, since she stepped in a rabbit hole at time of injury. She states it began getting worse 5 years ago, states became more aware of it. She states that is when she got a job, she was standing more which caused pain. Pt is planning to get in August, wants to get checked out for her knee. Recently, reports no changes other than hurting more frequently with activity, which is what prompted her to seek help. Pt reports that her knee bothers her when she works out (squats, lunges), going up stairs, unable to run very much, difficulty with cutting or turning, hills, uneven grounds, jumping. Pt reports that her knee has catches 2x in past (not recent, states can move and it will unlock), within last 7 years her knee has given out at least 5 times, cracks but not painful. Pt has gone to chiropractor, has has manual treatment. She has not seen an orthopedist. States that knee brace (sock brace)- compression helps on worse days. Prior Treatments and Tests MRI March 2024: questionable partial meniscocapsular tearing at posterior horn of medial meniscus, intact cruciate and collateral ligaments, no acute trabecular bone injury or focal cartilage defect, small joint effusion Treatment Goals Patient/Caregiver Goals increase ROM, decrease discomfort levels Current Functional Impairments (Reported) Functional Limitations- Recreation/ work out (does not do a lot of Hobbies stretching)- every other day light gardening 3x/wk (1 year) one year ago 1x/day (at home- body wt) PT-OP-C Subjective Start: 04/16/24 07:28 Freq: Status: Active Protocol: Document 04/30/24 08:11 AB (Rec: 04/30/24 09:13 AB [id number]) OP-PT Subjective Patient Comments Patient Comments Patient reports the knee is the same, comments the knee hurt when driving. Right AI left PI noted, single leg squat right LE without UE use with a dynamic valgus and femoral IR. PT-OP-E Functional Tests Start: 04/16/24 07:28 Freq: Status: Active Protocol: Document 04/16/24 08:15 NM (Rec: 04/16/24 09:03 NM [id number]) Functional Tests Squat Test Score 1 Comments pain immediately after in anterior PT-OP-F Manual Assessment Start: 04/16/24 07:28 Freq: Status: Active Protocol: Document 04/16/24 08:15 NM (Rec: 04/16/24 09:03 NM [id number]) Manual Assessments Soft Tissue Assessment Soft Tissue Mobility Assessment Increased HS tightness bilaterally, R>L; small effusion around R knee Joint Mobility Assessment Joint Mobility Assessment Lacking R knee extension in stance, limited patellar mobility PT-OP-G Mobility & Gait Start: 04/16/24 07:28 Freq: Status: Active Protocol: Document 04/16/24 08:15 NM (Rec: 04/16/24 09:03 NM [id number]) OP Gait Assessment Gait Gait Assistance Required: Independent Distance (Feet) 150 Assistive Devices Assistive Device None Gait Deviations General Gait Pattern Antalgic Factors Limiting Gait Function Factors Limiting Gait Function Decreased Activity Tolerance, Decreased Strength,Limited Range of Motion Comments Gait Comments Demos slight external rotation of R knee, slight decrease in foot clearance Stair Climbing Evaluation Technique/Endurance Stair Climbing Technique Step Over Step Number of Steps Climbed 4 Stair Climbing Set # Repetitions (reps) 1 Comments Stair Climbing Comments Demos valgus of R knee, pain with stepping down fro 4 and 6 steps. Mild pain with step up PT-OP-J Posture/Palpation/Skin Start: 04/16/24 07:28 Freq: Status: Active Protocol: Document 04/16/24 08:15 NM (Rec: 04/16/24 09:03 NM [id number]) Posture Evaluation Position Standing Head/C-Spine Posture Forward Head Pelvis Posture Anteriorly Tilted Weight Distribution Balanced Hip Posture (L) Externally Rotated,(R) Externally Rotated Knee Posture (L) Genu Valgus,(R) Genu Valgus,(R) Excess Flexion Patellar Posture (L) Superior,(R) Superior,(R) Medially Tilted Ankle/Foot Posture (L) Neutral,(R) Neutral Comments Posture Comments less knee ext R Palpation Assessment Location R knee Palpation Details no joint line tenderness tenderness only patellar tendon, inferior pole of patellar, peripatellar PT-OP-K Range of Motion Start: 04/16/24 07:28 Freq: Status: Active Protocol: Document 04/16/24 08:15 NM (Rec: 04/16/24 09:03 NM [id number]) Hip Goniometric Range of Motion Hip Right Flexion w/Knee Flexed 110 Internal Rotation 35 External Rotation 30 Left Flexion w/Knee Flexed 120 Internal Rotation 40 External Rotation 30 Knee Goniometric Range of Motion Knee Right Flexion Active (degrees) 145 Extension Active (degrees) 6 Comments HS length 110 in fernanda position Left Flexion Active (degrees) 146 Extension Active (degrees) 0 Comments HS length 105 deg in fernanda position Ankle and Foot Goniometric Range of Motion Ankle and Foot Right Dorsiflexion with Knee Flexed 6 Left Dorsiflexion with Knee Flexed 5 PT-OP-L Special Tests Start: 04/16/24 07:28 Freq: Status: Active Protocol: Document 04/16/24 08:15 NM (Rec: 04/16/24 09:03 NM [id number]) Special Tests Knee Special Tests Samantha Test Test Results + Comments clicking present but no increase in pain Apley's Compression Test Results - PT-OP-M Strength Start: 04/16/24 07:28 Freq: Status: Active Protocol: Document 04/16/24 08:15 NM (Rec: 04/16/24 09:03 NM [id number]) Hip Strength Hip Manual Muscle Testing Right Flexion (L2) 4- Good- Extension (S1) 4- Good- Abduction 4- Good- Adduction 4 Good External Rotation 4 Good Internal Rotation 4 Good Left Flexion (L2) 4- Good- Extension (S1) 4 Good Abduction 4 Good Adduction 4- Good- External Rotation 4 Good Internal Rotation 4 Good Knee Strength Knee Manual Muscle Testing Right Flexion (S2) 4 Good Extension (L3) 4 Good Comments pain with knee extension at patellar tendon Left Flexion (S2) 4 Good Extension (L3) 4 Good PT-OP-Q Treatments Start: 04/16/24 07:28 Freq: Status: Active Protocol: Document 04/30/24 08:11 AB (Rec: 04/30/24 09:13 AB [id number]) Therapeutic Exercises Supine Exercises bridge Supine Exercise Name HEP review ( increased band resistance) Side bilateral Resistance level 3 band at thighs Equipment Used with ppt Reps/Minutes 2x15 Comments pain free at knee fernanda stretch Supine Exercise Name HEP Side bilateral Reps/Minutes 60 ea Comments with AROM knee flexion X10 post manual HS stretch Supine Exercise Name HEP Side bilateral Equipment Used strap Reps/Minutes 60 Comments post manual Standing Exercises squat Standing Exercise Name back to wall with band above knees Resistance levle 3 band Reps/Minutes 15X2 Comments Verbal cues to squat to depth that does not increase pain side steps Side bilateral Resistance level 3 band above knees Equipment Used squat position Reps/Minutes 3x15 ft Comments monitored for pain glute medius isometric Standing Exercise Name HEP Side bilateral Reps/Minutes 60 Comments Verbal and visual cues TKE Standing Exercise Name HEP Side right Resistance level band at knee Reps/Minutes X15 Manual Therapy Treatment Soft Tissue Mobilization R knee Body Location HS, hip flexors, Mobilization Type Cross-Friction,Rolling Intensity/Depth Moderate Body Position Hooklying Joint Mobilizations R knee Joint tibiofemoral, Direction post to ant tib on femur Grade III Body Position Hooklying Reps/Duration X10 X 3 Taping right knee Treatment Focus unload fat pad Type of Tape Kinesio Tape 2 fat pads inf pat, medial and lat to pat 70% strch prx direct Skin Inspection WNL Comments Pt ed to remove in 3-5 days or immediately if skin irritation occurs PT-OP-T Assessment and Plan Start: 04/16/24 07:28 Freq: Status: Active Protocol: Document 04/30/24 08:11 AB (Rec: 04/30/24 09:13 AB [id number]) Physical Therapy Assessment Goals Five Impairment pain with stairs Short Term Goal (STG) Pt will be able to perform at least 8 step ups and step downs with R knee pain <5/10 in order to demonstrate improved form and symptom management STG Duration 8 weeks Automatic Mounter Goal (LTG) Pt will report no limitation while performing standard flight of stairs or when ambulating on uneven surfaces in order to demonstrate improved symptom management LTG Duration 12 weeks Four Impairment pain at rest and with activity Short Term Goal (STG) Pt will report < 3/10 R knee pain at rest to demonstrate improved symptom management STG Duration 8 weeks Prison Goal (LTG) Pt will report < 3/10 R knee pain with activity to demonstrate improved symptom management LTG Duration 12 weeks Three Impairment pain with exercise Short Term Goal (STG) Pt will be provided education on safe exercise with HEP and will report compliance with HEP at least 3x/wk in order to maximize progression with PT. STG Duration 3 weeks Automatic Mounter Goal (LTG) Pt will report compliance with HEP or independent exercise at least 3x/wk in order to demonstrate improved carryover and maintenance with progression LTG Duration 12 weeks Two Impairment strength R knee Short Term Goal (STG) Pt will improve R knee flexion /extension and R hip flexion/ abduction/extension strength to at least 4+/5 MMT in order to demonstrate increased strength for exercise and gait STG Duration 8 weeks Prison Goal (LTG) Pt will improve R knee flexion /extension and R hip flexion/ abduction/extension strength to at least 5/5 MMT in order to demonstrate increased strength for exercise and gait LTG Duration 12 weeks One Impairment R knee extension AROM limited to 6 deg Short Term Goal (STG) Pt will improve R knee extension AROM to at least 3 deg in order to demonstrate improved TKE for gait STG Duration 6 weeks Prison Goal (LTG) Pt will improve R knee extension AROM to <3 deg in order to demonstrate improved TKE for gait LTG Duration 12 weeks Assessment Summary Assessment Patient reports having no knee pain end of session, does have bilateral hip pain 3/10. Physical Therapy Plan Frequency and Duration Frequency of Treatment 1-2x/wk Duration of treatment (weeks) 12 Plan of Care Start Date 04/16/24 Plan of Care End Date 07/09/24 Next Visit Focus/Plan Next Note Type Treatment Note Next Visit Plan Assess rolanda to taping. Normalize ROM (ext and pain free flex). Adjust HEP as needed Trial SL bridge, standing glute med isometric, heel slides, quad and HS stretch, TKE with band as needed, trial wall squat w/ ball; Focus next sesssion on : progress to step up/back, SL stability, SL RDL; hip 3 way w/ slider Manual: STM and joint mobilizations Plan of care: proprioception, squat retraining (future)
--- NOTE | 2024-05-07 12:55 | PT.OTN ---
Current Diagnoses Pain in unspecified knee (05/07/24) Stiffness of right knee, not elsewhere classified (05/07/24) Other lack of coordination (05/07/24) Weakness (05/07/24) Physical Therapy Treatment Note PT-OP-A Visit Information Start: 04/16/24 07:28 Freq: Status: Active Protocol: Document 05/07/24 08:54 AB (Rec: 05/07/24 09:47 AB [id number]) Out-Patient Physical Therapy Visit Information Visit Information Visit Type Treatment Note Visit Note Access Code [email or web address] Visit Start Time 09:03 Visit Stop Time 09:46 Visit Number 5 Number of FIRE COORDINATOR Visits 2 Evaluation Information Evaluation Date 04/16/24 Precautions Precautions hx of osteochondritis dessicans of R knee4 PT-OP-B Current Condition Start: 04/16/24 07:28 Freq: Status: Active Protocol: Document 04/16/24 08:15 NM (Rec: 04/16/24 09:03 NM [id number]) Current Condition History of Current Condition Onset Date chronic, 10 years ago Current Complaints pain, limited ROM History of Current Condition Pt reports that she injured her R knee with hyperextension at 10 years ago, states dx with OCD. States that she did not have any bracing or crutches; no surgery, no other treatment. Her R knee is bothering her, since she stepped in a rabbit hole at time of injury. She states it began getting worse 5 years ago, states became more aware of it. She states that is when she got a job, she was standing more which caused pain. Pt is planning to get in August, wants to get checked out for her knee. Recently, reports no changes other than hurting more frequently with activity, which is what prompted her to seek help. Pt reports that her knee bothers her when she works out (squats, lunges), going up stairs, unable to run very much, difficulty with cutting or turning, hills, uneven grounds, jumping. Pt reports that her knee has catches 2x in past (not recent, states can move and it will unlock), within last 7 years her knee has given out at least 5 times, cracks but not painful. Pt has gone to chiropractor, has has manual treatment. She has not seen an orthopedist. States that knee brace (sock brace)- compression helps on worse days. Prior Treatments and Tests MRI March 2024: questionable partial meniscocapsular tearing at posterior horn of medial meniscus, intact cruciate and collateral ligaments, no acute trabecular bone injury or focal cartilage defect, small joint effusion Treatment Goals Patient/Caregiver Goals increase ROM, decrease discomfort levels Current Functional Impairments (Reported) Functional Limitations- Recreation/ work out (does not do a lot of Hobbies stretching)- every other day light gardening 3x/wk (1 year) one year ago 1x/day (at home- body wt) PT-OP-C Subjective Start: 04/16/24 07:28 Freq: Status: Active Protocol: Document 05/07/24 08:54 AB (Rec: 05/07/24 09:47 AB [id number]) OP-PT Subjective Patient Comments Patient Comments Patient reports the tape helped. Patient reports she can extend the knee more. Patient reports she still has pain with stairs and squats. Patient reports peripatellar pain returning to upright from squat right LE. PT-OP-E Functional Tests Start: 04/16/24 07:28 Freq: Status: Active Protocol: Document 04/16/24 08:15 NM (Rec: 04/16/24 09:03 NM [id number]) Functional Tests Squat Test Score 1 Comments pain immediately after in anterior PT-OP-F Manual Assessment Start: 04/16/24 07:28 Freq: Status: Active Protocol: Document 04/16/24 08:15 NM (Rec: 04/16/24 09:03 NM [id number]) Manual Assessments Soft Tissue Assessment Soft Tissue Mobility Assessment Increased HS tightness bilaterally, R>L; small effusion around R knee Joint Mobility Assessment Joint Mobility Assessment Lacking R knee extension in stance, limited patellar mobility PT-OP-G Mobility & Gait Start: 04/16/24 07:28 Freq: Status: Active Protocol: Document 04/16/24 08:15 NM (Rec: 04/16/24 09:03 NM [id number]) OP Gait Assessment Gait Gait Assistance Required: Independent Distance (Feet) 150 Assistive Devices Assistive Device None Gait Deviations General Gait Pattern Antalgic Factors Limiting Gait Function Factors Limiting Gait Function Decreased Activity Tolerance, Decreased Strength,Limited Range of Motion Comments Gait Comments Demos slight external rotation of R knee, slight decrease in foot clearance Stair Climbing Evaluation Technique/Endurance Stair Climbing Technique Step Over Step Number of Steps Climbed 4 Stair Climbing Set # Repetitions (reps) 1 Comments Stair Climbing Comments Demos valgus of R knee, pain with stepping down fro 4 and 6 steps. Mild pain with step up PT-OP-J Posture/Palpation/Skin Start: 04/16/24 07:28 Freq: Status: Active Protocol: Document 04/16/24 08:15 NM (Rec: 04/16/24 09:03 NM [id number]) Posture Evaluation Position Standing Head/C-Spine Posture Forward Head Pelvis Posture Anteriorly Tilted Weight Distribution Balanced Hip Posture (L) Externally Rotated,(R) Externally Rotated Knee Posture (L) Genu Valgus,(R) Genu Valgus,(R) Excess Flexion Patellar Posture (L) Superior,(R) Superior,(R) Medially Tilted Ankle/Foot Posture (L) Neutral,(R) Neutral Comments Posture Comments less knee ext R Palpation Assessment Location R knee Palpation Details no joint line tenderness tenderness only patellar tendon, inferior pole of patellar, peripatellar PT-OP-K Range of Motion Start: 04/16/24 07:28 Freq: Status: Active Protocol: Document 04/16/24 08:15 NM (Rec: 04/16/24 09:03 NM [id number]) Hip Goniometric Range of Motion Hip Right Flexion w/Knee Flexed 110 Internal Rotation 35 External Rotation 30 Left Flexion w/Knee Flexed 120 Internal Rotation 40 External Rotation 30 Knee Goniometric Range of Motion Knee Right Flexion Active (degrees) 145 Extension Active (degrees) 6 Comments HS length 110 in fernanda position Left Flexion Active (degrees) 146 Extension Active (degrees) 0 Comments HS length 105 deg in fernanda position Ankle and Foot Goniometric Range of Motion Ankle and Foot Right Dorsiflexion with Knee Flexed 6 Left Dorsiflexion with Knee Flexed 5 PT-OP-L Special Tests Start: 04/16/24 07:28 Freq: Status: Active Protocol: Document 04/16/24 08:15 NM (Rec: 04/16/24 09:03 NM [id number]) Special Tests Knee Special Tests Samantha Test Test Results + Comments clicking present but no increase in pain Apley's Compression Test Results - PT-OP-M Strength Start: 04/16/24 07:28 Freq: Status: Active Protocol: Document 04/16/24 08:15 NM (Rec: 04/16/24 09:03 NM [id number]) Hip Strength Hip Manual Muscle Testing Right Flexion (L2) 4- Good- Extension (S1) 4- Good- Abduction 4- Good- Adduction 4 Good External Rotation 4 Good Internal Rotation 4 Good Left Flexion (L2) 4- Good- Extension (S1) 4 Good Abduction 4 Good Adduction 4- Good- External Rotation 4 Good Internal Rotation 4 Good Knee Strength Knee Manual Muscle Testing Right Flexion (S2) 4 Good Extension (L3) 4 Good Comments pain with knee extension at patellar tendon Left Flexion (S2) 4 Good Extension (L3) 4 Good PT-OP-Q Treatments Start: 04/16/24 07:28 Freq: Status: Active Protocol: Document 05/07/24 08:54 AB (Rec: 05/07/24 09:47 AB [id number]) Therapeutic Exercises Supine Exercises single leg bridge Side bilateral Reps/Minutes X15 each LE bridge Supine Exercise Name HEP review ( increased band resistance) Side bilateral Resistance level band at thighs Reps/Minutes 2x15 Comments pain free at knee fernanda stretch Supine Exercise Name HEP Side bilateral Reps/Minutes 60 ea Comments with AROM knee flexion X10 post manual HS stretch Supine Exercise Name HEP Side bilateral Equipment Used strap Reps/Minutes 60 Comments post manual Sitting Exercises LAQ Side bilateral Reps/Minutes x15 w/ 2 Comments without band this session Standing Exercises single leg RDL Standing Exercise Name HEP Side bilateral Reps/Minutes X10 to chair height Comments verbal and visual cues squat Standing Exercise Name back to wall with band above knees HEP Resistance level 4 band Reps/Minutes 15X2 one set with ball one set back to chair HEP no ball at home Comments Verbal cues to squat to depth that does not increase pain side steps Side bilateral Resistance level 4 band above knees Equipment Used squat position Reps/Minutes 3x15 ft Comments monitored for pain glute medius isometric Standing Exercise Name HEP Side bilateral Reps/Minutes 60 Comments Verbal and visual cues TKE Standing Exercise Name HEP Side right Resistance level band at knee Reps/Minutes X15 Manual Therapy Treatment Soft Tissue Mobilization R knee Body Location HS, quad Mobilization Type Cross-Friction,Rolling Intensity/Depth Moderate Body Position Hooklying Joint Mobilizations R knee Joint tibiofemoral, Direction post to ant tib on femur Grade III Body Position Hooklying Reps/Duration X10 X 3 Taping right knee Treatment Focus unload fat pad Type of Tape KT 2 fat pads inf pat, medial and lat to pat 70% strch prx direct, Skin Inspection WNL Comments Pt ed to remove in 3-5 days or immediately if skin irritation occurs PT-OP-T Assessment and Plan Start: 04/16/24 07:28 Freq: Status: Active Protocol: Document 05/07/24 08:54 AB (Rec: 05/07/24 09:47 AB [id number]) Physical Therapy Assessment Goals Five Impairment pain with stairs Short Term Goal (STG) Pt will be able to perform at least 8 step ups and step downs with R knee pain <5/10 in order to demonstrate improved form and symptom management STG Duration 8 weeks [employer] Goal (LTG) Pt will report no limitation while performing standard flight of stairs or when ambulating on uneven surfaces in order to demonstrate improved symptom management LTG Duration 12 weeks Four Impairment pain at rest and with activity Short Term Goal (STG) Pt will report < 3/10 R knee pain at rest to demonstrate improved symptom management STG Duration 8 weeks [employer] Goal (LTG) Pt will report < 3/10 R knee pain with activity to demonstrate improved symptom management LTG Duration 12 weeks Three Impairment pain with exercise Short Term Goal (STG) Pt will be provided education on safe exercise with HEP and will report compliance with HEP at least 3x/wk in order to maximize progression with PT. STG Duration 3 weeks Assisted Goal (LTG) Pt will report compliance with HEP or independent exercise at least 3x/wk in order to demonstrate improved carryover and maintenance with progression LTG Duration 12 weeks Two Impairment strength R knee Short Term Goal (STG) Pt will improve R knee flexion /extension and R hip flexion/ abduction/extension strength to at least 4+/5 MMT in order to demonstrate increased strength for exercise and gait STG Duration 8 weeks Assisted Goal (LTG) Pt will improve R knee flexion /extension and R hip flexion/ abduction/extension strength to at least 5/5 MMT in order to demonstrate increased strength for exercise and gait LTG Duration 12 weeks One Impairment R knee extension AROM limited to 6 deg Short Term Goal (STG) Pt will improve R knee extension AROM to at least 3 deg in order to demonstrate improved TKE for gait STG Duration 6 weeks Assisted Goal (LTG) Pt will improve R knee extension AROM to <3 deg in order to demonstrate improved TKE for gait LTG Duration 12 weeks Assessment Summary Assessment Patient reports having no pain with squat post taping. Patient reports having no pain end of session, comments just muscle soreness. Physical Therapy Plan Frequency and Duration Frequency of Treatment 1-2x/wk Duration of treatment (weeks) 12 Plan of Care Start Date 04/16/24 Plan of Care End Date 07/09/24 Next Visit Focus/Plan Next Note Type Treatment Note Next Visit Plan Normalize ROM (ext and pain free flex). Adjust HEP as needed standing glute med isometric, heel slides, quad and HS stretch, TKE with band as needed, trial wall squat w/ ball; Focus next sesssion on : progress to step up/back, SL stability, hip 3 way w/ slider Manual: STM and joint mobilizations Plan of care: proprioception, squat retraining (future)
--- NOTE | 2024-05-14 12:47 | PT.OTN ---
Current Diagnoses Pain in unspecified knee (05/14/24) Stiffness of right knee, not elsewhere classified (05/14/24) Other lack of coordination (05/14/24) Weakness (05/14/24) Physical Therapy Treatment Note PT-OP-A Visit Information Start: 04/16/24 07:28 Freq: Status: Active Protocol: Document 05/14/24 08:15 AB (Rec: 05/14/24 12:47 AB [id number]) Out-Patient Physical Therapy Visit Information Visit Information Visit Type Treatment Note Visit Note Access Code [id number] Visit Start Time 09:48 Visit Stop Time 10:32 Visit Number 6 Number of CUTTER BRAKE LINING Visits 3 PT-OP-B Current Condition Start: 04/16/24 07:28 Freq: Status: Active Protocol: Document 04/16/24 08:15 NM (Rec: 04/16/24 09:03 NM [id number]) Current Condition History of Current Condition Onset Date chronic, 10 years ago Current Complaints pain, limited ROM History of Current Condition Pt reports that she injured her R knee with hyperextension at 10 years ago, states dx with OCD. States that she did not have any bracing or crutches; no surgery, no other treatment. Her R knee is bothering her, since she stepped in a rabbit hole at time of injury. She states it began getting worse 5 years ago, states became more aware of it. She states that is when she got a job, she was standing more which caused pain. Pt is planning to get in August, wants to get checked out for her knee. Recently, reports no changes other than hurting more frequently with activity, which is what prompted her to seek help. Pt reports that her knee bothers her when she works out (squats, lunges), going up stairs, unable to run very much, difficulty with cutting or turning, hills, uneven grounds, jumping. Pt reports that her knee has catches 2x in past (not recent, states can move and it will unlock), within last 7 years her knee has given out at least 5 times, cracks but not painful. Pt has gone to chiropractor, has has manual treatment. She has not seen an orthopedist. States that knee brace (sock brace)- compression helps on worse days. Prior Treatments and Tests MRI March 2024: questionable partial meniscocapsular tearing at posterior horn of medial meniscus, intact cruciate and collateral ligaments, no acute trabecular bone injury or focal cartilage defect, small joint effusion Treatment Goals Patient/Caregiver Goals increase ROM, decrease discomfort levels Current Functional Impairments (Reported) Functional Limitations- Recreation/ work out (does not do a lot of Hobbies stretching)- every other day light gardening 3x/wk (1 year) one year ago 1x/day (at home- body wt) PT-OP-C Subjective Start: 04/16/24 07:28 Freq: Status: Active Protocol: Document 05/14/24 08:15 AB (Rec: 05/14/24 12:47 AB [id number]) OP-PT Subjective Patient Comments Patient Comments Patient reports she is getting better, but did have pain with running to car this morning. Patient comments she may have turned with her running. Patient reports she was able to perform squats with tape on with no pain. Runs with decreased shock absorption. PT-OP-E Functional Tests Start: 04/16/24 07:28 Freq: Status: Active Protocol: Document 04/16/24 08:15 NM (Rec: 04/16/24 09:03 NM [id number]) Functional Tests Squat Test Score 1 Comments pain immediately after in anterior PT-OP-F Manual Assessment Start: 04/16/24 07:28 Freq: Status: Active Protocol: Document 04/16/24 08:15 NM (Rec: 04/16/24 09:03 NM [id number]) Manual Assessments Soft Tissue Assessment Soft Tissue Mobility Assessment Increased HS tightness bilaterally, R>L; small effusion around R knee Joint Mobility Assessment Joint Mobility Assessment Lacking R knee extension in stance, limited patellar mobility PT-OP-G Mobility & Gait Start: 04/16/24 07:28 Freq: Status: Active Protocol: Document 04/16/24 08:15 NM (Rec: 04/16/24 09:03 NM [id number]) OP Gait Assessment Gait Gait Assistance Required: Independent Distance (Feet) 150 Assistive Devices Assistive Device None Gait Deviations General Gait Pattern Antalgic Factors Limiting Gait Function Factors Limiting Gait Function Decreased Activity Tolerance, Decreased Strength,Limited Range of Motion Comments Gait Comments Demos slight external rotation of R knee, slight decrease in foot clearance Stair Climbing Evaluation Technique/Endurance Stair Climbing Technique Step Over Step Number of Steps Climbed 4 Stair Climbing Set # Repetitions (reps) 1 Comments Stair Climbing Comments Demos valgus of R knee, pain with stepping down fro 4 and 6 steps. Mild pain with step up PT-OP-J Posture/Palpation/Skin Start: 04/16/24 07:28 Freq: Status: Active Protocol: Document 04/16/24 08:15 NM (Rec: 04/16/24 09:03 NM [id number]) Posture Evaluation Position Standing Head/C-Spine Posture Forward Head Pelvis Posture Anteriorly Tilted Weight Distribution Balanced Hip Posture (L) Externally Rotated,(R) Externally Rotated Knee Posture (L) Genu Valgus,(R) Genu Valgus,(R) Excess Flexion Patellar Posture (L) Superior,(R) Superior,(R) Medially Tilted Ankle/Foot Posture (L) Neutral,(R) Neutral Comments Posture Comments less knee ext R Palpation Assessment Location R knee Palpation Details no joint line tenderness tenderness only patellar tendon, inferior pole of patellar, peripatellar PT-OP-K Range of Motion Start: 04/16/24 07:28 Freq: Status: Active Protocol: Document 04/16/24 08:15 NM (Rec: 04/16/24 09:03 NM [id number]) Hip Goniometric Range of Motion Hip Right Flexion w/Knee Flexed 110 Internal Rotation 35 External Rotation 30 Left Flexion w/Knee Flexed 120 Internal Rotation 40 External Rotation 30 Knee Goniometric Range of Motion Knee Right Flexion Active (degrees) 145 Extension Active (degrees) 6 Comments HS length 110 in fernanda position Left Flexion Active (degrees) 146 Extension Active (degrees) 0 Comments HS length 105 deg in fernanda position Ankle and Foot Goniometric Range of Motion Ankle and Foot Right Dorsiflexion with Knee Flexed 6 Left Dorsiflexion with Knee Flexed 5 PT-OP-L Special Tests Start: 04/16/24 07:28 Freq: Status: Active Protocol: Document 04/16/24 08:15 NM (Rec: 04/16/24 09:03 NM [id number]) Special Tests Knee Special Tests Samantha Test Test Results + Comments clicking present but no increase in pain Apley's Compression Test Results - PT-OP-M Strength Start: 04/16/24 07:28 Freq: Status: Active Protocol: Document 04/16/24 08:15 NM (Rec: 04/16/24 09:03 NM [id number]) Hip Strength Hip Manual Muscle Testing Right Flexion (L2) 4- Good- Extension (S1) 4- Good- Abduction 4- Good- Adduction 4 Good External Rotation 4 Good Internal Rotation 4 Good Left Flexion (L2) 4- Good- Extension (S1) 4 Good Abduction 4 Good Adduction 4- Good- External Rotation 4 Good Internal Rotation 4 Good Knee Strength Knee Manual Muscle Testing Right Flexion (S2) 4 Good Extension (L3) 4 Good Comments pain with knee extension at patellar tendon Left Flexion (S2) 4 Good Extension (L3) 4 Good PT-OP-Q Treatments Start: 04/16/24 07:28 Freq: Status: Active Protocol: Document 05/14/24 08:15 AB (Rec: 05/14/24 12:47 AB [id number]) Therapeutic Exercises Supine Exercises fernanda stretch Supine Exercise Name HEP Side bilateral Reps/Minutes 60 ea X1 Comments with AROM knee flexion X10 post manual Standing Exercises 3 way with slider Standing Exercise Name performed im mirror Side bilateral Reps/Minutes X10 each side Comments verbal and visual cues single leg RDL Standing Exercise Name HEP Side bilateral Reps/Minutes X15 to chair height Comments verbal and visual cues squat Standing Exercise Name band above knees HEP Resistance level 4 band Reps/Minutes 15X2 one set with ball one set back to chair HEP Comments Verbal cues to squat to depth that does not increase pain glute medius isometric Standing Exercise Name HEP Side bilateral Reps/Minutes 60 Comments Verbal and visual cues TKE Standing Exercise Name HEP Side right Resistance level band at knee Reps/Minutes X15 Manual Therapy Treatment Soft Tissue Mobilization R knee Body Location HS, quad Mobilization Type Cross-Friction,Rolling Intensity/Depth Moderate Body Position Hooklying Joint Mobilizations R knee Joint tibiofemoral, Direction post to ant tib on femur Grade III Body Position Hooklying Reps/Duration X10 X 3 Taping right knee Treatment Focus unload fat pad Type of Tape KT 2 fat pads inf pat, medial and lat to pat 70% strch prx direct, Skin Inspection WNL Comments Pt ed to remove in 3-5 days or immediately if skin irritation occurs PT-OP-T Assessment and Plan Start: 04/16/24 07:28 Freq: Status: Active Protocol: Document 05/14/24 08:15 AB (Rec: 05/14/24 12:47 AB [id number]) Physical Therapy Assessment Goals Five Impairment pain with stairs Short Term Goal (STG) Pt will be able to perform at least 8 step ups and step downs with R knee pain <5/10 in order to demonstrate improved form and symptom management STG Duration 8 weeks Half-Way Goal (LTG) Pt will report no limitation while performing standard flight of stairs or when ambulating on uneven surfaces in order to demonstrate improved symptom management LTG Duration 12 weeks Four Impairment pain at rest and with activity Short Term Goal (STG) Pt will report < 3/10 R knee pain at rest to demonstrate improved symptom management STG Duration 8 weeks Half-Way Goal (LTG) Pt will report < 3/10 R knee pain with activity to demonstrate improved symptom management LTG Duration 12 weeks Three Impairment pain with exercise Short Term Goal (STG) Pt will be provided education on safe exercise with HEP and will report compliance with HEP at least 3x/wk in order to maximize progression with PT. STG Duration 3 weeks Half-Way Goal (LTG) Pt will report compliance with HEP or independent exercise at least 3x/wk in order to demonstrate improved carryover and maintenance with progression LTG Duration 12 weeks Two Impairment strength R knee Short Term Goal (STG) Pt will improve R knee flexion /extension and R hip flexion/ abduction/extension strength to at least 4+/5 MMT in order to demonstrate increased strength for exercise and gait STG Duration 8 weeks Half-Way Goal (LTG) Pt will improve R knee flexion /extension and R hip flexion/ abduction/extension strength to at least 5/5 MMT in order to demonstrate increased strength for exercise and gait LTG Duration 12 weeks One Impairment R knee extension AROM limited to 6 deg Short Term Goal (STG) Pt will improve R knee extension AROM to at least 3 deg in order to demonstrate improved TKE for gait STG Duration 6 weeks Half-Way Goal (LTG) Pt will improve R knee extension AROM to <3 deg in order to demonstrate improved TKE for gait LTG Duration 12 weeks Assessment Summary Assessment Patient reports increased pain lat right knee with slider ex on 8th rep, but pain eliminated with decreased ROM on final two repetions. Patient reports slight pain peripatellar area with short run in clinic.~50 feet Physical Therapy Plan Frequency and Duration Frequency of Treatment 1-2x/wk Duration of treatment (weeks) 12 Plan of Care Start Date 04/16/24 Plan of Care End Date 07/09/24 Next Visit Focus/Plan Next Note Type Treatment Note Next Visit Plan Normalize ROM (ext and pain free flex). Adjust HEP as needed standing glute med isometric, heel slides, quad TKE with band as needed, trial wall squat w/ ball; Focus next sesssion on : progress to step up/back, SL stability, hip 3 way w/ slider Manual: STM and joint mobilizations Plan of care: SLS with band proprioception, BOSU squat( future)
--- NOTE | 2024-05-19 11:08 | PT.OTN ---
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 States that she did not have any bracing or crutches; no surgery, no other treatment. Her R knee is bothering her, since she stepped in a rabbit hole at time of injury. She states it began getting worse 5 years ago, states became more aware of it. She states that is when she got a job, she was standing more which caused pain. Pt is planning to get in August, wants to get checked out for her knee. Recently, reports no changes other than hurting more frequently with activity, which is what prompted her to seek help. Pt reports that her knee bothers her when she works out (squats, lunges), going up stairs, unable to run very much, difficulty with cutting or turning, hills, uneven grounds, jumping. Pt reports that her knee has catches 2x in past (not recent, states can move and it will unlock), within last 7 years her knee has given out at least 5 times, cracks but not painful. Pt has gone to chiropractor, has has manual treatment. She has not seen an orthopedist. States that knee brace (sock brace)- compression helps on worse days. Prior Treatments and Tests MRI March 2024: questionable partial meniscocapsular tearing at posterior horn of medial meniscus, intact cruciate and collateral ligaments, no acute trabecular bone injury or focal cartilage defect, small joint effusion Treatment Goals Patient/Caregiver Goals increase ROM, decrease discomfort levels Current Functional Impairments (Reported) Functional Limitations- Recreation/ work out (does not do a lot of Hobbies stretching)- every other day light gardening 3x/wk (1 year) one year ago 1x/day (at home- body wt) PT-OP-C Subjective Start: 04/16/24 07:28 Freq: Status: Active Protocol: Document 05/19/24 08:17 NM (Rec: 05/19/24 09:01 NM [id number]) OP-PT Subjective Patient Comments Patient Comments Pt reports that her knee is doing better. Reports that she feels like she didn't notice a heavy limp, less stiff. Reports felt more normal. Reports less discomfort and pain during exercises. States that she got a sharp pain on Friday on her medial knee, reports that she had been running to her car and slightly twisted her knee. She reports that the tape made her knee feel better. Doesn't recall any current discomfort with stairs anymore PT-OP-E Functional Tests Start: 04/16/24 07:28 Freq: Status: Active Protocol: Document 04/16/24 08:15 NM (Rec: 04/16/24 09:03 NM [id number]) Functional Tests Squat Test Score 1 Comments pain immediately after in anterior PT-OP-F Manual Assessment Start: 04/16/24 07:28 Freq: Status: Active Protocol: Document 04/16/24 08:15 NM (Rec: 04/16/24 09:03 NM [id number]) Manual Assessments Soft Tissue Assessment Soft Tissue Mobility Assessment Increased HS tightness bilaterally, R>L; small effusion around R knee Joint Mobility Assessment Joint Mobility Assessment Lacking R knee extension in stance, limited patellar mobility PT-OP-G Mobility & Gait Start: 04/16/24 07:28 Freq: Status: Active Protocol: Document 04/16/24 08:15 NM (Rec: 04/16/24 09:03 NM [id number]) OP Gait Assessment Gait Gait Assistance Required: Independent Distance (Feet) 150 Assistive Devices Assistive Device None Gait Deviations General Gait Pattern Antalgic Factors Limiting Gait Function Factors Limiting Gait Function Decreased Activity Tolerance, Decreased Strength,Limited Range of Motion Comments Gait Comments Demos slight external rotation of R knee, slight decrease in foot clearance Stair Climbing Evaluation Technique/Endurance Stair Climbing Technique Step Over Step Number of Steps Climbed 4 Stair Climbing Set # Repetitions (reps) 1 Comments Stair Climbing Comments Demos valgus of R knee, pain with stepping down fro 4 and 6 steps. Mild pain with step up PT-OP-J Posture/Palpation/Skin Start: 04/16/24 07:28 Freq: Status: Active Protocol: Document 04/16/24 08:15 NM (Rec: 04/16/24 09:03 NM [id number]) Posture Evaluation Position Standing Head/C-Spine Posture Forward Head Pelvis Posture Anteriorly Tilted Weight Distribution Balanced Hip Posture (L) Externally Rotated,(R) Externally Rotated Knee Posture (L) Genu Valgus,(R) Genu Valgus,(R) Excess Flexion Patellar Posture (L) Superior,(R) Superior,(R) Medially Tilted Ankle/Foot Posture (L) Neutral,(R) Neutral Comments Posture Comments less knee ext R Palpation Assessment Location R knee Palpation Details no joint line tenderness tenderness only patellar tendon, inferior pole of patellar, peripatellar PT-OP-K Range of Motion Start: 04/16/24 07:28 Freq: Status: Active Protocol: Document 05/19/24 08:17 NM (Rec: 05/19/24 09:01 NM [id number]) Knee Goniometric Range of Motion Knee Right Flexion Active (degrees) 145 Extension Active (degrees) 6 Comments HS length 110 in fernanda position 05/19/24: lacking 1 deg ext Left Flexion Active (degrees) 146 Extension Active (degrees) 0 Comments HS length 105 deg in fernanda position PT-OP-L Special Tests Start: 04/16/24 07:28 Freq: Status: Active Protocol: Document 04/16/24 08:15 NM (Rec: 04/16/24 09:03 NM [id number]) Special Tests Knee Special Tests Samantha Test Test Results + Comments clicking present but no increase in pain Apley's Compression Test Results - PT-OP-M Strength Start: 04/16/24 07:28 Freq: Status: Active Protocol: Document 05/19/24 08:17 NM (Rec: 05/19/24 09:01 NM [id number]) Hip Strength Hip Manual Muscle Testing Right Flexion (L2) 4- Good- Extension (S1) 4- Good- Abduction 4- Good- Adduction 4 Good External Rotation 4 Good Internal Rotation 4 Good Comments 05/19/24: 4/5 for flex/abd Left Flexion (L2) 4- Good- Extension (S1) 4 Good Abduction 4 Good Adduction 4- Good- External Rotation 4 Good Internal Rotation 4 Good Knee Strength Knee Manual Muscle Testing Right Flexion (S2) 4 Good Extension (L3) 4 Good Comments pain with knee extension at patellar tendon 05/19/24: 4/5, no pain Left Flexion (S2) 4 Good Extension (L3) 4 Good PT-OP-Q Treatments Start: 04/16/24 07:28 Freq: Status: Active Protocol: Document 05/19/24 08:17 NM (Rec: 05/19/24 09:01 NM [id number]) Therapeutic Exercises Supine Exercises SLR Side bilateral Reps/Minutes 2x10 Comments maintains quad set Sidelying Exercises hip abduction Sidelying Exercise Name with hip IR and ankle DF (HEP) Side bilateral Resistance level 1 band Reps/Minutes 15 with 3 concentric, 1 hold , 3 eccentric Comments improved form, R still more challenging but not painful Standing Exercises step up Standing Exercise Name trialed in PT: 1. 4 fwd step up, 2. 6 step up Side bilateral Reps/Minutes 1. 2x10 ea, 2. x10 ea Comments reports feels in quad but no knee pain squat Standing Exercise Name 1. ghanaian squat (trialed), 2. band above knees Side bilateral Resistance level 5 band attached to stairs Reps/Minutes 1. 10, 2. 2x10 Comments reports ache 4/10 at R knee w/ ghanaian squat, d/c; inc depth on reg squat TKE Standing Exercise Name HEP review Side right Resistance level 3 band at knee Reps/Minutes 15 Other Exercises stretching Other Exercise Name 1. 1/2 kneel hip flexor stretch, 2. w/ quad stretch, 3 . bottom's up HS Side bilateral Reps/Minutes 30 ea Comments end of session PT-OP-T Assessment and Plan Start: 04/16/24 07:28 Freq: Status: Active Protocol: Document 05/19/24 08:17 NM (Rec: 05/19/24 09:01 NM [id number]) Physical Therapy Assessment Goals Five Impairment pain with stairs Short Term Goal (STG) Pt will be able to perform at least 8 step ups and step downs with R knee pain <5/10 in order to demonstrate improved form and symptom management 05/19/25: 20 4 step ups without knee pain, 10 on 6 stair STG Duration 8 weeks Halfway Goal (LTG) Pt will report no limitation while performing standard flight of stairs or when ambulating on uneven surfaces in order to demonstrate improved symptom management LTG Duration 12 weeks Four Impairment pain at rest and with activity Short Term Goal (STG) Pt will report < 3/10 R knee pain at rest to demonstrate improved symptom management 05/19/24: reports 2/10 R knee pain at rest since PT STG Duration 8 weeks PROGRESSING Halfway Goal (LTG) Pt will report < 3/10 R knee pain with activity to demonstrate improved symptom management LTG Duration 12 weeks Three Impairment pain with exercise Short Term Goal (STG) Pt will be provided education on safe exercise with HEP and will report compliance with HEP at least 3x/wk in order to maximize progression with PT. 05/19/24: following prescription on HEP sheet STG Duration 3 weeks MET Halfway Goal (LTG) Pt will report compliance with HEP or independent exercise at least 3x/wk in order to demonstrate improved carryover and maintenance with progression LTG Duration 12 weeks Two Impairment strength R knee Short Term Goal (STG) Pt will improve R knee flexion /extension and R hip flexion/ abduction/extension strength to at least 4+/5 MMT in order to demonstrate increased strength for exercise and gait 05/19/24: 4/5 for all, pain free at knee STG Duration 8 weeks PROGRESSING Manufacturing Tech Goal (LTG) Pt will improve R knee flexion /extension and R hip flexion/ abduction/extension strength to at least 5/5 MMT in order to demonstrate increased strength for exercise and gait LTG Duration 12 weeks One Impairment R knee extension AROM limited to 6 deg Short Term Goal (STG) Pt will improve R knee extension AROM to at least 3 deg in order to demonstrate improved TKE for gait 05/19/24: lacking 1 deg of R knee extension STG Duration 6 weeks MET Halfway Goal (LTG) Pt will improve R knee extension AROM to <3 deg in order to demonstrate improved TKE for gait 05/19/24: lacking 1 deg of R knee extension LTG Duration 12 weeks Progress Towards Goals Progress Towards Goals Progressing Toward Goals Assessment Summary Assessment Pt tolerated session well. Able to perform SLR today while maintaining good quad activation throughout ROM, pain free. Trialed 4 and 6 step up without limitation or pain; RLE is more fatigued and mildly weaker than LLE. Pt did not respond well to ghanaian squats so discontinued ; however, demonstrates improved squat depth today to chair for regular squat. Pt is progressing toward goals but demos limited activity tolerance. Pt would benefit from skilled PT for progressive strengthening and ROM of R knee in order to improve acivity tolerance and symptom management. Physical Therapy Plan Frequency and Duration Frequency of Treatment 1-2x/wk Duration of treatment (weeks) 12 Plan of Care Start Date 04/16/24 Plan of Care End Date 07/09/24 Therapeutic Interventions Therapeutic Interventions Balance Training,Gait Training ,Home Exercise Program,Joint Mobilizations,Manual Therapy, Neuromuscular Re-education, Orthotic/Prosthetic Management ,Patient/Caregiver Education, Self-Care/Home Management, Sensory Integration,Soft Tissue Mobilization,Taping, Therapeutic Activities, Therapeutic Exercises Modalities Cold Pack/Ice Massage,Electric Stimulation,Hot Packs, Ultrasound Next Visit Focus/Plan Next Note Type Treatment Note Next Visit Plan Review hip 3 way, add leg press. progress step up. Add SL RDL and knee ext on machine vs with band. tape with fiance Manual: STM and joint mobilizations as needed Plan of care: SLS with band proprioception, BOSU squat( future)
--- NOTE | 2024-05-21 09:49 | PT.OTN ---
Current Diagnoses Pain in unspecified knee (05/21/24) Stiffness of right knee, not elsewhere classified (05/21/24) Other lack of coordination (05/21/24) Weakness (05/21/24) Physical Therapy Treatment Note PT-OP-A Visit Information Start: 04/16/24 07:28 Freq: Status: Active Protocol: Document 05/21/24 09:03 NM (Rec: 05/21/24 09:48 NM [id number]) Out-Patient Physical Therapy Visit Information Visit Information Visit Type Treatment Note Visit Start Time 09:04 Visit Stop Time 09:44 Visit Number 8 Evaluation Information Evaluation Date 04/16/24 Precautions Precautions hx of osteochondritis dessicans of R knee PT-OP-B Current Condition Start: 04/16/24 07:28 Freq: Status: Active Protocol: Document 04/16/24 08:15 NM (Rec: 04/16/24 09:03 NM [id number]) Current Condition History of Current Condition Onset Date chronic, 10 years ago Current Complaints pain, limited ROM History of Current Condition Pt reports that she injured her R knee with hyperextension at 10 years ago, states dx with OCD. States that she did not have any bracing or crutches; no surgery, no other treatment. Her R knee is bothering her, since she stepped in a rabbit hole at time of injury. She states it began getting worse 5 years ago, states became more aware of it. She states that is when she got a job, she was standing more which caused pain. Pt is planning to get in August, wants to get checked out for her knee. Recently, reports no changes other than hurting more frequently with activity, which is what prompted her to seek help. Pt reports that her knee bothers her when she works out (squats, lunges), going up stairs, unable to run very much, difficulty with cutting or turning, hills, uneven grounds, jumping. Pt reports that her knee has catches 2x in past (not recent, states can move and it will unlock), within last 7 years her knee has given out at least 5 times, cracks but not painful. Pt has gone to chiropractor, has has manual treatment. She has not seen an orthopedist. States that knee brace (sock brace)- compression helps on worse days. Prior Treatments and Tests MRI March 2024: questionable partial meniscocapsular tearing at posterior horn of medial meniscus, intact cruciate and collateral ligaments, no acute trabecular bone injury or focal cartilage defect, small joint effusion Treatment Goals Patient/Caregiver Goals increase ROM, decrease discomfort levels Current Functional Impairments (Reported) Functional Limitations- Recreation/ work out (does not do a lot of Hobbies stretching)- every other day light gardening 3x/wk (1 year) one year ago 1x/day (at home- body wt) PT-OP-C Subjective Start: 04/16/24 07:28 Freq: Status: Active Protocol: Document 05/21/24 09:03 NM (Rec: 05/21/24 09:48 NM [id number]) OP-PT Subjective Patient Comments Patient Comments Pt reports that she had pain from kneeling after last session. States resolved w/i 24 hours. PT-OP-E Functional Tests Start: 04/16/24 07:28 Freq: Status: Active Protocol: Document 04/16/24 08:15 NM (Rec: 04/16/24 09:03 NM [id number]) Functional Tests Squat Test Score 1 Comments pain immediately after in anterior PT-OP-F Manual Assessment Start: 04/16/24 07:28 Freq: Status: Active Protocol: Document 04/16/24 08:15 NM (Rec: 04/16/24 09:03 NM [id number]) Manual Assessments Soft Tissue Assessment Soft Tissue Mobility Assessment Increased HS tightness bilaterally, R>L; small effusion around R knee Joint Mobility Assessment Joint Mobility Assessment Lacking R knee extension in stance, limited patellar mobility PT-OP-G Mobility & Gait Start: 04/16/24 07:28 Freq: Status: Active Protocol: Document 04/16/24 08:15 NM (Rec: 04/16/24 09:03 NM [id number]) OP Gait Assessment Gait Gait Assistance Required: Independent Distance (Feet) 150 Assistive Devices Assistive Device None Gait Deviations General Gait Pattern Antalgic Factors Limiting Gait Function Factors Limiting Gait Function Decreased Activity Tolerance, Decreased Strength,Limited Range of Motion Comments Gait Comments Demos slight external rotation of R knee, slight decrease in foot clearance Stair Climbing Evaluation Technique/Endurance Stair Climbing Technique Step Over Step Number of Steps Climbed 4 Stair Climbing Set # Repetitions (reps) 1 Comments Stair Climbing Comments Demos valgus of R knee, pain with stepping down fro 4 and 6 steps. Mild pain with step up PT-OP-J Posture/Palpation/Skin Start: 04/16/24 07:28 Freq: Status: Active Protocol: Document 04/16/24 08:15 NM (Rec: 04/16/24 09:03 NM [id number]) Posture Evaluation Position Standing Head/C-Spine Posture Forward Head Pelvis Posture Anteriorly Tilted Weight Distribution Balanced Hip Posture (L) Externally Rotated,(R) Externally Rotated Knee Posture (L) Genu Valgus,(R) Genu Valgus,(R) Excess Flexion Patellar Posture (L) Superior,(R) Superior,(R) Medially Tilted Ankle/Foot Posture (L) Neutral,(R) Neutral Comments Posture Comments less knee ext R Palpation Assessment Location R knee Palpation Details no joint line tenderness tenderness only patellar tendon, inferior pole of patellar, peripatellar PT-OP-K Range of Motion Start: 04/16/24 07:28 Freq: Status: Active Protocol: Document 05/19/24 08:17 NM (Rec: 05/19/24 09:01 NM [id number]) Knee Goniometric Range of Motion Knee Right Flexion Active (degrees) 145 Extension Active (degrees) 6 Comments HS length 110 in fernanda position 05/19/24: lacking 1 deg ext Left Flexion Active (degrees) 146 Extension Active (degrees) 0 Comments HS length 105 deg in fernanda position PT-OP-L Special Tests Start: 04/16/24 07:28 Freq: Status: Active Protocol: Document 04/16/24 08:15 NM (Rec: 04/16/24 09:03 NM [id number]) Special Tests Knee Special Tests Samantha Test Test Results + Comments clicking present but no increase in pain Apley's Compression Test Results - PT-OP-M Strength Start: 04/16/24 07:28 Freq: Status: Active Protocol: Document 05/19/24 08:17 NM (Rec: 05/19/24 09:01 NM [id number]) Hip Strength Hip Manual Muscle Testing Right Flexion (L2) 4- Good- Extension (S1) 4- Good- Abduction 4- Good- Adduction 4 Good External Rotation 4 Good Internal Rotation 4 Good Comments 05/19/24: 4/5 for flex/abd Left Flexion (L2) 4- Good- Extension (S1) 4 Good Abduction 4 Good Adduction 4- Good- External Rotation 4 Good Internal Rotation 4 Good Knee Strength Knee Manual Muscle Testing Right Flexion (S2) 4 Good Extension (L3) 4 Good Comments pain with knee extension at patellar tendon 05/19/24: 4/5, no pain Left Flexion (S2) 4 Good Extension (L3) 4 Good PT-OP-Q Treatments Start: 04/16/24 07:28 Freq: Status: Active Protocol: Document 05/21/24 09:03 NM (Rec: 05/21/24 09:48 NM [id number]) Gym Equipment Shuttle Recovery B squat Details no knee pain; limited to baout 90 deg knee flexion Resistance 50# ([employer]) > 62# Reps/Time 3x10 Therapeutic Exercises Sitting Exercises LAQ Sitting Exercise Name trialed cables: single leg ( performed on both sides) Resistance level 1 cables Reps/Minutes 10 ea Standing Exercises lateral touch down Standing Exercise Name 4 Side bilateral Equipment Used 1 hand support, hand on hip for self tactile cue Reps/Minutes 2x10 ea Comments cued for form; better level pelvis w/ reps step up Standing Exercise Name 6 step up w/ hip flexion Side bilateral Reps/Minutes 2x10 ea Comments no knee pain single leg RDL Side bilateral Resistance 3# db Equipment Used to 12 step Reps/Minutes 2x15 ea Comments neutral spine, good control Neuro Re-Education Treatment Balance Activities rockerboard Equipment squat hold w. 3# db in front Reps/Duration 2x30 ea Comments 1. A/P 2. M/L SLS Comments 1. stance, 2x30 ea 2. on foam, 2x30 ea 3. eyes closed (stable surface ), 2x30 ea LLE more challenging than RLE, puts down R foot intermittently to stabilize PT-OP-T Assessment and Plan Start: 04/16/24 07:28 Freq: Status: Active Protocol: Document 05/21/24 09:03 NM (Rec: 05/21/24 09:48 NM [id number]) Physical Therapy Assessment Goals Five Impairment pain with stairs Short Term Goal (STG) Pt will be able to perform at least 8 step ups and step downs with R knee pain <5/10 in order to demonstrate improved form and symptom management 05/19/25: 20 4 step ups without knee pain, 10 on 6 stair STG Duration 8 weeks Intermediate Goal (LTG) Pt will report no limitation while performing standard flight of stairs or when ambulating on uneven surfaces in order to demonstrate improved symptom management LTG Duration 12 weeks Four Impairment pain at rest and with activity Short Term Goal (STG) Pt will report < 3/10 R knee pain at rest to demonstrate improved symptom management 05/19/24: reports 2/10 R knee pain at rest since PT STG Duration 8 weeks PROGRESSING Auction Clerk Goal (LTG) Pt will report < 3/10 R knee pain with activity to demonstrate improved symptom management LTG Duration 12 weeks Three Impairment pain with exercise Short Term Goal (STG) Pt will be provided education on safe exercise with HEP and will report compliance with HEP at least 3x/wk in order to maximize progression with PT. 05/19/24: following prescription on HEP sheet STG Duration 3 weeks MET Intermediate Goal (LTG) Pt will report compliance with HEP or independent exercise at least 3x/wk in order to demonstrate improved carryover and maintenance with progression LTG Duration 12 weeks Two Impairment strength R knee Short Term Goal (STG) Pt will improve R knee flexion /extension and R hip flexion/ abduction/extension strength to at least 4+/5 MMT in order to demonstrate increased strength for exercise and gait 05/19/24: 4/5 for all, pain free at knee STG Duration 8 weeks PROGRESSING Auction Clerk Goal (LTG) Pt will improve R knee flexion /extension and R hip flexion/ abduction/extension strength to at least 5/5 MMT in order to demonstrate increased strength for exercise and gait LTG Duration 12 weeks One Impairment R knee extension AROM limited to 6 deg Short Term Goal (STG) Pt will improve R knee extension AROM to at least 3 deg in order to demonstrate improved TKE for gait 05/19/24: lacking 1 deg of R knee extension STG Duration 6 weeks MET Auction Clerk Goal (LTG) Pt will improve R knee extension AROM to <3 deg in order to demonstrate improved TKE for gait 05/19/24: lacking 1 deg of R knee extension LTG Duration 12 weeks Assessment Summary Assessment Pt tolerated session well. Emphasis on functional quad and glute strengthening. Trialed B squat on leg press, which pt performed without pain but still at knee flexion ~90 deg. Good response to 6 step up; continues to be pain free. Able to progress to lateral step down for glute medius strength. Trialed LAQ with cables; pt able to perform RLE throughout majority of ROM, lacking only TKE due to fatigue; pain free. Initiated proprioceptive training, which pt tolerated well; demos improved R SLS time compared to evaluation. Physical Therapy Plan Frequency and Duration Frequency of Treatment 1-2x/wk Duration of treatment (weeks) 12 Plan of Care Start Date 04/16/24 Plan of Care End Date 07/09/24 Therapeutic Interventions Therapeutic Interventions Balance Training,Gait Training ,Home Exercise Program,Joint Mobilizations,Manual Therapy, Neuromuscular Re-education, Orthotic/Prosthetic Management ,Patient/Caregiver Education, Self-Care/Home Management, Sensory Integration,Soft Tissue Mobilization,Taping, Therapeutic Activities, Therapeutic Exercises Modalities Cold Pack/Ice Massage,Electric Stimulation,Hot Packs, Ultrasound Next Visit Focus/Plan Next Note Type Treatment Note Next Visit Plan Assess tolerance to leg press, step up, lateral touch down. progress glute w/ side step. Add knee ext on machine vs with band. tape with fiance ( teach how to do). cont w/ proprioceptive training Manual: STM and joint mobilizations as needed Plan of care: SLS with band proprioception, BOSU squat( future)
--- NOTE | 2024-05-24 16:44 | PT.OTN ---
Current Diagnoses Pain in unspecified knee (05/24/24) Stiffness of right knee, not elsewhere classified (05/24/24) Other lack of coordination (05/24/24) Weakness (05/24/24) Physical Therapy Treatment Note PT-OP-A Visit Information Start: 04/16/24 07:28 Freq: Status: Active Protocol: Document 05/24/24 08:14 AB (Rec: 05/24/24 09:47 AB [id number]) Out-Patient Physical Therapy Visit Information Visit Information Visit Type Treatment Note Visit Note Access Code [email or web address] Visit Start Time 09:03 Visit Stop Time 09:45 Visit Number 9 Number of DATABASE ADMINISTRATOR Visits 1 Evaluation Information Evaluation Date 04/16/24 Precautions Precautions hx of osteochondritis dessicans of R knee PT-OP-B Current Condition Start: 04/16/24 07:28 Freq: Status: Active Protocol: Document 04/16/24 08:15 NM (Rec: 04/16/24 09:03 NM [id number]) Current Condition History of Current Condition Onset Date chronic, 10 years ago Current Complaints pain, limited ROM History of Current Condition Pt reports that she injured her R knee with hyperextension at 10 years ago, states dx with OCD. States that she did not have any bracing or crutches; no surgery, no other treatment. Her R knee is bothering her, since she stepped in a rabbit hole at time of injury. She states it began getting worse 5 years ago, states became more aware of it. She states that is when she got a job, she was standing more which caused pain. Pt is planning to get in August, wants to get checked out for her knee. Recently, reports no changes other than hurting more frequently with activity, which is what prompted her to seek help. Pt reports that her knee bothers her when she works out (squats, lunges), going up stairs, unable to run very much, difficulty with cutting or turning, hills, uneven grounds, jumping. Pt reports that her knee has catches 2x in past (not recent, states can move and it will unlock), within last 7 years her knee has given out at least 5 times, cracks but not painful. Pt has gone to chiropractor, has has manual treatment. She has not seen an orthopedist. States that knee brace (sock brace)- compression helps on worse days. Prior Treatments and Tests MRI March 2024: questionable partial meniscocapsular tearing at posterior horn of medial meniscus, intact cruciate and collateral ligaments, no acute trabecular bone injury or focal cartilage defect, small joint effusion Treatment Goals Patient/Caregiver Goals increase ROM, decrease discomfort levels Current Functional Impairments (Reported) Functional Limitations- Recreation/ work out (does not do a lot of Hobbies stretching)- every other day light gardening 3x/wk (1 year) one year ago 1x/day (at home- body wt) PT-OP-C Subjective Start: 04/16/24 07:28 Freq: Status: Active Protocol: Document 05/24/24 08:14 AB (Rec: 05/24/24 09:47 AB [id number]) OP-PT Subjective Patient Comments Patient Comments Patient reports the knee is better, hasn't felt it much pain. lacking 4 deg extension to 147 deg flexion AROM right knee. Dynamic valgus with right LE single leg squat persists. PT-OP-E Functional Tests Start: 04/16/24 07:28 Freq: Status: Active Protocol: Document 04/16/24 08:15 NM (Rec: 04/16/24 09:03 NM [id number]) Functional Tests Squat Test Score 1 Comments pain immediately after in anterior PT-OP-F Manual Assessment Start: 04/16/24 07:28 Freq: Status: Active Protocol: Document 04/16/24 08:15 NM (Rec: 04/16/24 09:03 NM [id number]) Manual Assessments Soft Tissue Assessment Soft Tissue Mobility Assessment Increased HS tightness bilaterally, R>L; small effusion around R knee Joint Mobility Assessment Joint Mobility Assessment Lacking R knee extension in stance, limited patellar mobility PT-OP-G Mobility & Gait Start: 04/16/24 07:28 Freq: Status: Active Protocol: Document 04/16/24 08:15 NM (Rec: 04/16/24 09:03 NM [id number]) OP Gait Assessment Gait Gait Assistance Required: Independent Distance (Feet) 150 Assistive Devices Assistive Device None Gait Deviations General Gait Pattern Antalgic Factors Limiting Gait Function Factors Limiting Gait Function Decreased Activity Tolerance, Decreased Strength,Limited Range of Motion Comments Gait Comments Demos slight external rotation of R knee, slight decrease in foot clearance Stair Climbing Evaluation Technique/Endurance Stair Climbing Technique Step Over Step Number of Steps Climbed 4 Stair Climbing Set # Repetitions (reps) 1 Comments Stair Climbing Comments Demos valgus of R knee, pain with stepping down fro 4 and 6 steps. Mild pain with step up PT-OP-J Posture/Palpation/Skin Start: 04/16/24 07:28 Freq: Status: Active Protocol: Document 04/16/24 08:15 NM (Rec: 04/16/24 09:03 NM [id number]) Posture Evaluation Position Standing Head/C-Spine Posture Forward Head Pelvis Posture Anteriorly Tilted Weight Distribution Balanced Hip Posture (L) Externally Rotated,(R) Externally Rotated Knee Posture (L) Genu Valgus,(R) Genu Valgus,(R) Excess Flexion Patellar Posture (L) Superior,(R) Superior,(R) Medially Tilted Ankle/Foot Posture (L) Neutral,(R) Neutral Comments Posture Comments less knee ext R Palpation Assessment Location R knee Palpation Details no joint line tenderness tenderness only patellar tendon, inferior pole of patellar, peripatellar PT-OP-K Range of Motion Start: 04/16/24 07:28 Freq: Status: Active Protocol: Document 05/19/24 08:17 NM (Rec: 05/19/24 09:01 NM [id number]) Knee Goniometric Range of Motion Knee Right Flexion Active (degrees) 145 Extension Active (degrees) 6 Comments HS length 110 in fernanda position 05/19/24: lacking 1 deg ext Left Flexion Active (degrees) 146 Extension Active (degrees) 0 Comments HS length 105 deg in fernanda position PT-OP-L Special Tests Start: 04/16/24 07:28 Freq: Status: Active Protocol: Document 04/16/24 08:15 NM (Rec: 04/16/24 09:03 NM [id number]) Special Tests Knee Special Tests Samantha Test Test Results + Comments clicking present but no increase in pain Apley's Compression Test Results - PT-OP-M Strength Start: 04/16/24 07:28 Freq: Status: Active Protocol: Document 05/19/24 08:17 NM (Rec: 05/19/24 09:01 NM [id number]) Hip Strength Hip Manual Muscle Testing Right Flexion (L2) 4- Good- Extension (S1) 4- Good- Abduction 4- Good- Adduction 4 Good External Rotation 4 Good Internal Rotation 4 Good Comments 05/19/24: 4/5 for flex/abd Left Flexion (L2) 4- Good- Extension (S1) 4 Good Abduction 4 Good Adduction 4- Good- External Rotation 4 Good Internal Rotation 4 Good Knee Strength Knee Manual Muscle Testing Right Flexion (S2) 4 Good Extension (L3) 4 Good Comments pain with knee extension at patellar tendon 05/19/24: 4/5, no pain Left Flexion (S2) 4 Good Extension (L3) 4 Good PT-OP-Q Treatments Start: 04/16/24 07:28 Freq: Status: Active Protocol: Document 05/24/24 08:14 AB (Rec: 05/24/24 09:47 AB [id number]) Gym Equipment Shuttle Recovery B squat Details final set 62#, to 90 deg flexion Resistance 50# (navy) > 62# Reps/Time 3x10 Therapeutic Exercises Supine Exercises SLR Side right Reps/Minutes X15 Comments post manual and HS stretch HS stretch Supine Exercise Name HEP Side right Resistance from hookling Reps/Minutes 60 X3 Comments post manual Standing Exercises single leg squat with band Standing Exercise Name holding back of chair right side Side bilateral Resistance level one light blue band Reps/Minutes 2X10 Comments facing mirror, also using cones to align knee single leg RDL Standing Exercise Name reaching for seat of chair Side bilateral Reps/Minutes X10 each LE Comments neutral spine, good control glute medius isometric Standing Exercise Name HEP Side bilateral Reps/Minutes 60 Comments Verbal and visual cues Manual Therapy Treatment Consent Patient gave verbal consent for manual Yes treatment Soft Tissue Mobilization R knee Body Location HS, quad Mobilization Type Cross-Friction,Rolling Intensity/Depth Moderate Body Position Hooklying Taping right knee Treatment Focus unload fat pad Type of Tape KT 2 fat pads inf pat, medial and lat to pat 70% strch prx direct, Skin Inspection WNL Comments Pt ed to remove in 3-5 days or immediately if skin irritation occurs. Fiance in for tape training, perfomred over therapist's tape. PT-OP-T Assessment and Plan Start: 04/16/24 07:28 Freq: Status: Active Protocol: Document 05/24/24 08:14 AB (Rec: 05/24/24 09:47 AB [id number]) Physical Therapy Assessment Goals Five Impairment pain with stairs Short Term Goal (STG) Pt will be able to perform at least 8 step ups and step downs with R knee pain <5/10 in order to demonstrate improved form and symptom management 05/19/25: 20 4 step ups without knee pain, 10 on 6 stair STG Duration 8 weeks Recovery Agent Goal (LTG) Pt will report no limitation while performing standard flight of stairs or when ambulating on uneven surfaces in order to demonstrate improved symptom management LTG Duration 12 weeks Four Impairment pain at rest and with activity Short Term Goal (STG) Pt will report < 3/10 R knee pain at rest to demonstrate improved symptom management 05/19/24: reports 2/10 R knee pain at rest since PT STG Duration 8 weeks PROGRESSING Recovery Agent Goal (LTG) Pt will report < 3/10 R knee pain with activity to demonstrate improved symptom management LTG Duration 12 weeks Three Impairment pain with exercise Short Term Goal (STG) Pt will be provided education on safe exercise with HEP and will report compliance with HEP at least 3x/wk in order to maximize progression with PT. 05/19/24: following prescription on HEP sheet STG Duration 3 weeks MET Recovery Agent Goal (LTG) Pt will report compliance with HEP or independent exercise at least 3x/wk in order to demonstrate improved carryover and maintenance with progression LTG Duration 12 weeks Two Impairment strength R knee Short Term Goal (STG) Pt will improve R knee flexion /extension and R hip flexion/ abduction/extension strength to at least 4+/5 MMT in order to demonstrate increased strength for exercise and gait 05/19/24: 4/5 for all, pain free at knee STG Duration 8 weeks PROGRESSING Usp Goal (LTG) Pt will improve R knee flexion /extension and R hip flexion/ abduction/extension strength to at least 5/5 MMT in order to demonstrate increased strength for exercise and gait LTG Duration 12 weeks One Impairment R knee extension AROM limited to 6 deg Short Term Goal (STG) Pt will improve R knee extension AROM to at least 3 deg in order to demonstrate improved TKE for gait 05/19/24: lacking 1 deg of R knee extension STG Duration 6 weeks MET Usp Goal (LTG) Pt will improve R knee extension AROM to <3 deg in order to demonstrate improved TKE for gait 05/19/24: lacking 1 deg of R knee extension LTG Duration 12 weeks Assessment Summary Assessment Patient reports no pain, just winded end of session. Good rolanda to leg press, ( also reports good rolanda previous session comments that she has weakness end ROM extension. 0 Physical Therapy Plan Next Visit Focus/Plan Next Note Type Treatment Note Next Visit Plan Assess step up, lateral touch down. progress glute w/ side step. Add knee ext on machine vs with band. tape with fiance (teach how to do). cont w/ proprioceptive training Manual: STM and joint mobilizations as needed Plan of care: proprioception, BOSU squat(future)
--- NOTE | 2024-05-26 10:29 | PT.OTN ---
Current Diagnoses Pain in unspecified knee (05/26/24) Stiffness of right knee, not elsewhere classified (05/26/24) Other lack of coordination (05/26/24) Weakness (05/26/24) Physical Therapy Treatment Note PT-OP-A Visit Information Start: 04/16/24 07:28 Freq: Status: Active Protocol: Document 05/26/24 09:48 NM (Rec: 05/26/24 10:29 NM [id number]) Out-Patient Physical Therapy Visit Information Visit Information Visit Type Treatment Note Visit Note 11/01 post PN Visit Start Time 09:49 Visit Stop Time 10:28 Visit Number 10 Evaluation Information Evaluation Date 04/16/24 Precautions Precautions hx of osteochondritis dessicans of R knee PT-OP-B Current Condition Start: 04/16/24 07:28 Freq: Status: Active Protocol: Document 04/16/24 08:15 NM (Rec: 04/16/24 09:03 NM [id number]) Current Condition History of Current Condition Onset Date chronic, 10 years ago Current Complaints pain, limited ROM History of Current Condition Pt reports that she injured her R knee with hyperextension at 10 years ago, states dx with OCD. States that she did not have any bracing or crutches; no surgery, no other treatment. Her R knee is bothering her, since she stepped in a rabbit hole at time of injury. She states it began getting worse 5 years ago, states became more aware of it. She states that is when she got a job, she was standing more which caused pain. Pt is planning to get in August, wants to get checked out for her knee. Recently, reports no changes other than hurting more frequently with activity, which is what prompted her to seek help. Pt reports that her knee bothers her when she works out (squats, lunges), going up stairs, unable to run very much, difficulty with cutting or turning, hills, uneven grounds, jumping. Pt reports that her knee has catches 2x in past (not recent, states can move and it will unlock), within last 7 years her knee has given out at least 5 times, cracks but not painful. Pt has gone to chiropractor, has has manual treatment. She has not seen an orthopedist. States that knee brace (sock brace)- compression helps on worse days. Prior Treatments and Tests MRI March 2024: questionable partial meniscocapsular tearing at posterior horn of medial meniscus, intact cruciate and collateral ligaments, no acute trabecular bone injury or focal cartilage defect, small joint effusion Treatment Goals Patient/Caregiver Goals increase ROM, decrease discomfort levels Current Functional Impairments (Reported) Functional Limitations- Recreation/ work out (does not do a lot of Hobbies stretching)- every other day light gardening 3x/wk (1 year) one year ago 1x/day (at home- body wt) PT-OP-C Subjective Start: 04/16/24 07:28 Freq: Status: Active Protocol: Document 05/26/24 09:48 NM (Rec: 05/26/24 10:29 NM [id number]) OP-PT Subjective Patient Comments Patient Comments Pt reports that last session went well. She reports sore hips. She had a dull ache in her knee all day yesterday but gone today; thinks from one legged exercises, 11/01. Pt continues to report improvement PT-OP-E Functional Tests Start: 04/16/24 07:28 Freq: Status: Active Protocol: Document 04/16/24 08:15 NM (Rec: 04/16/24 09:03 NM [id number]) Functional Tests Squat Test Score 1 Comments pain immediately after in anterior PT-OP-F Manual Assessment Start: 04/16/24 07:28 Freq: Status: Active Protocol: Document 04/16/24 08:15 NM (Rec: 04/16/24 09:03 NM [id number]) Manual Assessments Soft Tissue Assessment Soft Tissue Mobility Assessment Increased HS tightness bilaterally, R>L; small effusion around R knee Joint Mobility Assessment Joint Mobility Assessment Lacking R knee extension in stance, limited patellar mobility PT-OP-G Mobility & Gait Start: 04/16/24 07:28 Freq: Status: Active Protocol: Document 04/16/24 08:15 NM (Rec: 04/16/24 09:03 NM [id number]) OP Gait Assessment Gait Gait Assistance Required: Independent Distance (Feet) 150 Assistive Devices Assistive Device None Gait Deviations General Gait Pattern Antalgic Factors Limiting Gait Function Factors Limiting Gait Function Decreased Activity Tolerance, Decreased Strength,Limited Range of Motion Comments Gait Comments Demos slight external rotation of R knee, slight decrease in foot clearance Stair Climbing Evaluation Technique/Endurance Stair Climbing Technique Step Over Step Number of Steps Climbed 4 Stair Climbing Set # Repetitions (reps) 1 Comments Stair Climbing Comments Demos valgus of R knee, pain with stepping down fro 4 and 6 steps. Mild pain with step up PT-OP-J Posture/Palpation/Skin Start: 04/16/24 07:28 Freq: Status: Active Protocol: Document 04/16/24 08:15 NM (Rec: 04/16/24 09:03 NM [id number]) Posture Evaluation Position Standing Head/C-Spine Posture Forward Head Pelvis Posture Anteriorly Tilted Weight Distribution Balanced Hip Posture (L) Externally Rotated,(R) Externally Rotated Knee Posture (L) Genu Valgus,(R) Genu Valgus,(R) Excess Flexion Patellar Posture (L) Superior,(R) Superior,(R) Medially Tilted Ankle/Foot Posture (L) Neutral,(R) Neutral Comments Posture Comments less knee ext R Palpation Assessment Location R knee Palpation Details no joint line tenderness tenderness only patellar tendon, inferior pole of patellar, peripatellar PT-OP-K Range of Motion Start: 04/16/24 07:28 Freq: Status: Active Protocol: Document 05/19/24 08:17 NM (Rec: 05/19/24 09:01 NM [id number]) Knee Goniometric Range of Motion Knee Right Flexion Active (degrees) 145 Extension Active (degrees) 6 Comments HS length 110 in fernanda position 05/19/24: lacking 1 deg ext Left Flexion Active (degrees) 146 Extension Active (degrees) 0 Comments HS length 105 deg in fernanda position PT-OP-L Special Tests Start: 04/16/24 07:28 Freq: Status: Active Protocol: Document 04/16/24 08:15 NM (Rec: 04/16/24 09:03 NM [id number]) Special Tests Knee Special Tests Samantha Test Test Results + Comments clicking present but no increase in pain Apley's Compression Test Results - PT-OP-M Strength Start: 04/16/24 07:28 Freq: Status: Active Protocol: Document 05/19/24 08:17 NM (Rec: 05/19/24 09:01 NM [id number]) Hip Strength Hip Manual Muscle Testing Right Flexion (L2) 4- Good- Extension (S1) 4- Good- Abduction 4- Good- Adduction 4 Good External Rotation 4 Good Internal Rotation 4 Good Comments 05/19/24: 4/5 for flex/abd Left Flexion (L2) 4- Good- Extension (S1) 4 Good Abduction 4 Good Adduction 4- Good- External Rotation 4 Good Internal Rotation 4 Good Knee Strength Knee Manual Muscle Testing Right Flexion (S2) 4 Good Extension (L3) 4 Good Comments pain with knee extension at patellar tendon 05/19/24: 4/5, no pain Left Flexion (S2) 4 Good Extension (L3) 4 Good PT-OP-Q Treatments Start: 04/16/24 07:28 Freq: Status: Active Protocol: Document 05/26/24 09:48 NM (Rec: 05/26/24 10:29 NM [id number]) Therapeutic Exercises Standing Exercises single leg heel raise Side bilateral Equipment Used 2 hand support for balance Reps/Minutes 10 single leg squat with band Standing Exercise Name HEP review Side bilateral Resistance level one light blue band at thighs Equipment Used holding back of chair right side Reps/Minutes 2x10 ea Comments facing mirror, cued hip hinge; demos knee valgus R, hip drop lateral touch down Standing Exercise Name 6 Side bilateral Equipment Used 1 hand support, hand on hip for self tactile cue Reps/Minutes 10 Comments cued for form; better level pelvis w/ reps step up Standing Exercise Name 8 step up w/ hip flexion Side bilateral Resistance AROM > 8# db in ea hand Reps/Minutes 10 AROM, 2x10 w/ resistance Comments no knee pain; improved pelvic control; cued no knee valgus Other Exercises foam roller Other Exercise Name glutes Side bilateral Reps/Minutes 4 min total Comments R more tender than L stretching Other Exercise Name 1. hip flexor, 2. HS Side bilateral Equipment Used 8 step Reps/Minutes 60 ea Manual Therapy Treatment Consent Patient gave verbal consent for manual Yes treatment Soft Tissue Mobilization R knee Body Location HS, quad Mobilization Type Cross-Friction,Rolling Intensity/Depth Moderate Body Position Hooklying Joint Mobilizations R knee Joint tibiofemoral Direction post to ant tib on femur Grade III Body Position Hooklying Reps/Duration 4x30 Comments To promote extension ROM. Lacking 3 deg at start of session PT-OP-T Assessment and Plan Start: 04/16/24 07:28 Freq: Status: Active Protocol: Document 05/26/24 09:48 NM (Rec: 05/26/24 10:29 NM [id number]) Physical Therapy Assessment Goals Five Impairment pain with stairs Short Term Goal (STG) Pt will be able to perform at least 8 step ups and step downs with R knee pain <5/10 in order to demonstrate improved form and symptom management 05/19/25: 20 4 step ups without knee pain, 10 on 6 stair STG Duration 8 weeks Fpc Goal (LTG) Pt will report no limitation while performing standard flight of stairs or when ambulating on uneven surfaces in order to demonstrate improved symptom management LTG Duration 12 weeks Four Impairment pain at rest and with activity Short Term Goal (STG) Pt will report < 3/10 R knee pain at rest to demonstrate improved symptom management 05/19/24: reports 2/10 R knee pain at rest since PT STG Duration 8 weeks PROGRESSING Vice President [employer] Goal (LTG) Pt will report < 3/10 R knee pain with activity to demonstrate improved symptom management LTG Duration 12 weeks Three Impairment pain with exercise Short Term Goal (STG) Pt will be provided education on safe exercise with HEP and will report compliance with HEP at least 3x/wk in order to maximize progression with PT. 05/19/24: following prescription on HEP sheet STG Duration 3 weeks MET Fpc Goal (LTG) Pt will report compliance with HEP or independent exercise at least 3x/wk in order to demonstrate improved carryover and maintenance with progression LTG Duration 12 weeks Two Impairment strength R knee Short Term Goal (STG) Pt will improve R knee flexion /extension and R hip flexion/ abduction/extension strength to at least 4+/5 MMT in order to demonstrate increased strength for exercise and gait 05/19/24: 4/5 for all, pain free at knee STG Duration 8 weeks PROGRESSING Vice President [employer] Goal (LTG) Pt will improve R knee flexion /extension and R hip flexion/ abduction/extension strength to at least 5/5 MMT in order to demonstrate increased strength for exercise and gait LTG Duration 12 weeks One Impairment R knee extension AROM limited to 6 deg Short Term Goal (STG) Pt will improve R knee extension AROM to at least 3 deg in order to demonstrate improved TKE for gait 05/19/24: lacking 1 deg of R knee extension STG Duration 6 weeks MET Fpc Goal (LTG) Pt will improve R knee extension AROM to <3 deg in order to demonstrate improved TKE for gait 05/19/24: lacking 1 deg of R knee extension LTG Duration 12 weeks Assessment Summary Assessment Pt tolerated session well. Reports no knee pain with activity. Reviewed single leg squat; cued for form especially pelvic stability and hip hinge; improved with cues to place contralateral foot in front of pt. Progressed to 6 step for lateral touch down and 8 step for step up with dumbbells. Pt responds well during session to progressions. Demos mild knee valgus with step up but also present during single leg squat. She continues to lack 3 deg of R knee ext at start of session, lacking 1 deg at end of session. Physical Therapy Plan Frequency and Duration Frequency of Treatment 1-2x/wk Duration of treatment (weeks) 12 Plan of Care Start Date 04/16/24 Plan of Care End Date 07/09/24 Therapeutic Interventions Therapeutic Interventions Balance Training,Gait Training ,Home Exercise Program,Joint Mobilizations,Manual Therapy, Neuromuscular Re-education, Orthotic/Prosthetic Management ,Patient/Caregiver Education, Self-Care/Home Management, Sensory Integration,Soft Tissue Mobilization,Taping, Therapeutic Activities, Therapeutic Exercises Modalities Cold Pack/Ice Massage,Electric Stimulation,Hot Packs, Ultrasound Next Visit Focus/Plan Next Note Type Treatment Note Next Visit Plan Review SL squat with modifications from last session. cable LAQ. Assess 8 step up, 6 lateral touch down . progress to eccentric step down, Y drill for hip/quad. cont w/ proprioceptive training Manual: STM and joint mobilizations as needed Plan of care: proprioception, BOSU squat(future)
--- NOTE | 2024-05-31 09:51 | PT.OTN ---
Current Diagnoses Pain in unspecified knee (05/31/24) Stiffness of right knee, not elsewhere classified (05/31/24) Other lack of coordination (05/31/24) Weakness (05/31/24) Physical Therapy Treatment Note PT-OP-A Visit Information Start: 04/16/24 07:28 Freq: Status: Active Protocol: Document 05/31/24 09:02 NM (Rec: 05/31/24 09:51 NM [id number]) Out-Patient Physical Therapy Visit Information Visit Information Visit Type Treatment Note Visit Note 12/02 post PN Visit Start Time 09:04 Visit Stop Time 09:48 Visit Number 11 Evaluation Information Evaluation Date 04/16/24 Precautions Precautions hx of osteochondritis dessicans of R knee PT-OP-B Current Condition Start: 04/16/24 07:28 Freq: Status: Active Protocol: Document 04/16/24 08:15 NM (Rec: 04/16/24 09:03 NM [id number]) Current Condition History of Current Condition Onset Date chronic, 10 years ago Current Complaints pain, limited ROM History of Current Condition Pt reports that she injured her R knee with hyperextension at 10 years ago, states dx with OCD. States that she did not have any bracing or crutches; no surgery, no other treatment. Her R knee is bothering her, since she stepped in a rabbit hole at time of injury. She states it began getting worse 5 years ago, states became more aware of it. She states that is when she got a job, she was standing more which caused pain. Pt is planning to get in August, wants to get checked out for her knee. Recently, reports no changes other than hurting more frequently with activity, which is what prompted her to seek help. Pt reports that her knee bothers her when she works out (squats, lunges), going up stairs, unable to run very much, difficulty with cutting or turning, hills, uneven grounds, jumping. Pt reports that her knee has catches 2x in past (not recent, states can move and it will unlock), within last 7 years her knee has given out at least 5 times, cracks but not painful. Pt has gone to chiropractor, has has manual treatment. She has not seen an orthopedist. States that knee brace (sock brace)- compression helps on worse days. Prior Treatments and Tests MRI March 2024: questionable partial meniscocapsular tearing at posterior horn of medial meniscus, intact cruciate and collateral ligaments, no acute trabecular bone injury or focal cartilage defect, small joint effusion Treatment Goals Patient/Caregiver Goals increase ROM, decrease discomfort levels Current Functional Impairments (Reported) Functional Limitations- Recreation/ work out (does not do a lot of Hobbies stretching)- every other day light gardening 3x/wk (1 year) one year ago 1x/day (at home- body wt) PT-OP-C Subjective Start: 04/16/24 07:28 Freq: Status: Active Protocol: Document 05/31/24 09:02 NM (Rec: 05/31/24 09:51 NM [id number]) OP-PT Subjective Patient Comments Patient Comments Pt reports that her knee feels stiff. Reports sore after last session but resolved within 1 day. Reports pain only when hitting her knee yesterday, states resolved since yesterday. No difficulty with exercises PT-OP-E Functional Tests Start: 04/16/24 07:28 Freq: Status: Active Protocol: Document 04/16/24 08:15 NM (Rec: 04/16/24 09:03 NM [id number]) Functional Tests Squat Test Score 1 Comments pain immediately after in anterior PT-OP-F Manual Assessment Start: 04/16/24 07:28 Freq: Status: Active Protocol: Document 04/16/24 08:15 NM (Rec: 04/16/24 09:03 NM [id number]) Manual Assessments Soft Tissue Assessment Soft Tissue Mobility Assessment Increased HS tightness bilaterally, R>L; small effusion around R knee Joint Mobility Assessment Joint Mobility Assessment Lacking R knee extension in stance, limited patellar mobility PT-OP-G Mobility & Gait Start: 04/16/24 07:28 Freq: Status: Active Protocol: Document 04/16/24 08:15 NM (Rec: 04/16/24 09:03 NM [id number]) OP Gait Assessment Gait Gait Assistance Required: Independent Distance (Feet) 150 Assistive Devices Assistive Device None Gait Deviations General Gait Pattern Antalgic Factors Limiting Gait Function Factors Limiting Gait Function Decreased Activity Tolerance, Decreased Strength,Limited Range of Motion Comments Gait Comments Demos slight external rotation of R knee, slight decrease in foot clearance Stair Climbing Evaluation Technique/Endurance Stair Climbing Technique Step Over Step Number of Steps Climbed 4 Stair Climbing Set # Repetitions (reps) 1 Comments Stair Climbing Comments Demos valgus of R knee, pain with stepping down fro 4 and 6 steps. Mild pain with step up PT-OP-J Posture/Palpation/Skin Start: 04/16/24 07:28 Freq: Status: Active Protocol: Document 04/16/24 08:15 NM (Rec: 04/16/24 09:03 NM [id number]) Posture Evaluation Position Standing Head/C-Spine Posture Forward Head Pelvis Posture Anteriorly Tilted Weight Distribution Balanced Hip Posture (L) Externally Rotated,(R) Externally Rotated Knee Posture (L) Genu Valgus,(R) Genu Valgus,(R) Excess Flexion Patellar Posture (L) Superior,(R) Superior,(R) Medially Tilted Ankle/Foot Posture (L) Neutral,(R) Neutral Comments Posture Comments less knee ext R Palpation Assessment Location R knee Palpation Details no joint line tenderness tenderness only patellar tendon, inferior pole of patellar, peripatellar PT-OP-K Range of Motion Start: 04/16/24 07:28 Freq: Status: Active Protocol: Document 05/19/24 08:17 NM (Rec: 05/19/24 09:01 NM [id number]) Knee Goniometric Range of Motion Knee Right Flexion Active (degrees) 145 Extension Active (degrees) 6 Comments HS length 110 in fernanda position 05/19/24: lacking 1 deg ext Left Flexion Active (degrees) 146 Extension Active (degrees) 0 Comments HS length 105 deg in fernanda position PT-OP-L Special Tests Start: 04/16/24 07:28 Freq: Status: Active Protocol: Document 04/16/24 08:15 NM (Rec: 04/16/24 09:03 NM [id number]) Special Tests Knee Special Tests Samantha Test Test Results + Comments clicking present but no increase in pain Apley's Compression Test Results - PT-OP-M Strength Start: 04/16/24 07:28 Freq: Status: Active Protocol: Document 05/19/24 08:17 NM (Rec: 05/19/24 09:01 NM [id number]) Hip Strength Hip Manual Muscle Testing Right Flexion (L2) 4- Good- Extension (S1) 4- Good- Abduction 4- Good- Adduction 4 Good External Rotation 4 Good Internal Rotation 4 Good Comments 9/25/24: 4/5 for flex/abd Left Flexion (L2) 4- Good- Extension (S1) 4 Good Abduction 4 Good Adduction 4- Good- External Rotation 4 Good Internal Rotation 4 Good Knee Strength Knee Manual Muscle Testing Right Flexion (S2) 4 Good Extension (L3) 4 Good Comments pain with knee extension at patellar tendon 05/19/24: 4/5, no pain Left Flexion (S2) 4 Good Extension (L3) 4 Good PT-OP-Q Treatments Start: 04/16/24 07:28 Freq: Status: Active Protocol: Document 05/31/24 09:02 NM (Rec: 05/31/24 09:51 NM [id number]) Cardio Equipment Bicycle (Upright) Duration (Minutes) 3 Resistance 0 Seat Position 4 Other warm up; no knee pain Gym Equipment Shuttle Recovery unilateral squat Resistance 37# (1 navy) > 50# (1 navy) Reps/Time 3x10 ea Therapeutic Exercises Sitting Exercises LAQ Sitting Exercise Name 1. cables: single leg ( performed on both sides), 2. w / band (HEP-lvl 3) Side bilateral Resistance level 1 cables Reps/Minutes 1. 3x10 ea, 2. 15 ea w/ level 2 band Standing Exercises single leg heel raise Side bilateral Equipment Used 2 hand support for balance Reps/Minutes 2x10 Comments full ROM single leg RDL Standing Exercise Name to 8 step Side bilateral Resistance 3# db in ipsi hand Reps/Minutes 15 ea- requires increased time Comments neutral spine, good control; cued TKE w/o locking knee TKE Standing Exercise Name HEP review Side right Resistance level 4 band at knee Reps/Minutes 15 Comments post manual tx Manual Therapy Treatment Consent Patient gave verbal consent for manual Yes treatment Soft Tissue Mobilization R knee Body Location HS, quad Mobilization Type Cross-Friction,Rolling Intensity/Depth Moderate Body Position Hooklying Joint Mobilizations R knee Joint tibiofemoral Direction post to ant tib on femur, sup glide patellar Grade III Reps/Duration 4x30 ea Comments Supine w/ patellar glide and sitting with tibial ER. Monitored for pain. To promote extension ROM. Lacking 3 deg at start of session, lacking 1 deg at end of session PT-OP-T Assessment and Plan Start: 04/16/24 07:28 Freq: Status: Active Protocol: Document 05/31/24 09:02 NM (Rec: 05/31/24 09:51 NM [id number]) Physical Therapy Assessment Goals Five Impairment pain with stairs Short Term Goal (STG) Pt will be able to perform at least 8 step ups and step downs with R knee pain <5/10 in order to demonstrate improved form and symptom management 05/19/25: 20 4 step ups without knee pain, 10 on 6 stair STG Duration 8 weeks Cello Teacher Goal (LTG) Pt will report no limitation while performing standard flight of stairs or when ambulating on uneven surfaces in order to demonstrate improved symptom management 05/31/24: pt reports not having any trouble with stairs recently LTG Duration 12 weeks PROGRESSING Four Impairment pain at rest and with activity Short Term Goal (STG) Pt will report < 3/10 R knee pain at rest to demonstrate improved symptom management 05/19/24: reports 2/10 R knee pain at rest since PT 05/31/24: pt reports 1/10 in R knee pain at rest STG Duration 8 weeks MET Long-Term Goal (LTG) Pt will report < 3/10 R knee pain with activity to demonstrate improved symptom management 05/31/24: pt reports 3/10 R knee pain depending on the activity LTG Duration 12 weeks PROGRESSING Three Impairment pain with exercise Short Term Goal (STG) Pt will be provided education on safe exercise with HEP and will report compliance with HEP at least 3x/wk in order to maximize progression with PT. 05/19/24: following prescription on HEP sheet STG Duration 3 weeks MET Cello Teacher Goal (LTG) Pt will report compliance with HEP or independent exercise at least 3x/wk in order to demonstrate improved carryover and maintenance with progression LTG Duration 12 weeks Two Impairment strength R knee Short Term Goal (STG) Pt will improve R knee flexion /extension and R hip flexion/ abduction/extension strength to at least 4+/5 MMT in order to demonstrate increased strength for exercise and gait 05/19/24: 4/5 for all, pain free at knee STG Duration 8 weeks PROGRESSING Long-Term Goal (LTG) Pt will improve R knee flexion /extension and R hip flexion/ abduction/extension strength to at least 5/5 MMT in order to demonstrate increased strength for exercise and gait LTG Duration 12 weeks One Impairment R knee extension AROM limited to 6 deg Short Term Goal (STG) Pt will improve R knee extension AROM to at least 3 deg in order to demonstrate improved TKE for gait 05/19/24: lacking 1 deg of R knee extension STG Duration 6 weeks MET Long-Term Goal (LTG) Pt will improve R knee extension AROM to <3 deg in order to demonstrate improved TKE for gait 05/19/24: lacking 1 deg of R knee extension LTG Duration 12 weeks PROGRESSING Assessment Summary Assessment Pt tolerated session well. Able to progress single leg squat resistance on leg press, maintains good alignment at knee although still has tendency for knee valgus on R knee. Progressed number of reps on LAQ and single leg RDL , in addition to addition of small weight for RDL. Cued for slight knee flexion to facilitate quad use for stability over ligamentous control. Lacking 3 deg of R knee extension at start of session, 1 deg at end of session. Initiated extension mobilization with tibial ER to promote end range extension with screwhome mechanism. Physical Therapy Plan Frequency and Duration Frequency of Treatment 1-2x/wk Duration of treatment (weeks) 12 Plan of Care Start Date 04/16/24 Plan of Care End Date 07/09/24 Therapeutic Interventions Therapeutic Interventions Balance Training,Gait Training ,Home Exercise Program,Joint Mobilizations,Manual Therapy, Neuromuscular Re-education, Orthotic/Prosthetic Management ,Patient/Caregiver Education, Self-Care/Home Management, Sensory Integration,Soft Tissue Mobilization,Taping, Therapeutic Activities, Therapeutic Exercises Modalities Cold Pack/Ice Massage,Electric Stimulation,Hot Packs, Ultrasound Next Visit Focus/Plan Next Note Type Treatment Note Next Visit Plan promote knee ext Trial SLS to chair again (with band) vs Y drill. Progress to cable LAQ. Assess 8 step up, 6 lateral touch down; trial bosu step up. progress to eccentric step down. cont w/ proprioceptive training Manual: STM and joint mobilizations as needed Plan of care: proprioception, BOSU squat(future)
--- NOTE | 2024-06-03 10:34 | PT.OTN ---
Current Diagnoses Pain in unspecified knee (06/03/24) Stiffness of right knee, not elsewhere classified (06/03/24) Other lack of coordination (06/03/24) Weakness (06/03/24) Physical Therapy Treatment Note PT-OP-A Visit Information Start: 04/16/24 07:28 Freq: Status: Active Protocol: Document 06/03/24 09:48 NM (Rec: 06/03/24 10:34 NM [id number]) Out-Patient Physical Therapy Visit Information Visit Information Visit Type Treatment Note Visit Note 01/01 post PN Visit Start Time 09:49 Visit Stop Time 10:30 Visit Number 12 Evaluation Information Evaluation Date 04/16/24 Precautions Precautions hx of osteochondritis dessicans of R knee PT-OP-B Current Condition Start: 04/16/24 07:28 Freq: Status: Active Protocol: Document 04/16/24 08:15 NM (Rec: 04/16/24 09:03 NM [id number]) Current Condition History of Current Condition Onset Date chronic, 10 years ago Current Complaints pain, limited ROM History of Current Condition Pt reports that she injured her R knee with hyperextension at 10 years ago, states dx with OCD. States that she did not have any bracing or crutches; no surgery, no other treatment. Her R knee is bothering her, since she stepped in a rabbit hole at time of injury. She states it began getting worse 5 years ago, states became more aware of it. She states that is when she got a job, she was standing more which caused pain. Pt is planning to get in August, wants to get checked out for her knee. Recently, reports no changes other than hurting more frequently with activity, which is what prompted her to seek help. Pt reports that her knee bothers her when she works out (squats, lunges), going up stairs, unable to run very much, difficulty with cutting or turning, hills, uneven grounds, jumping. Pt reports that her knee has catches 2x in past (not recent, states can move and it will unlock), within last 7 years her knee has given out at least 5 times, cracks but not painful. Pt has gone to chiropractor, has has manual treatment. She has not seen an orthopedist. States that knee brace (sock brace)- compression helps on worse days. Prior Treatments and Tests MRI March 2024: questionable partial meniscocapsular tearing at posterior horn of medial meniscus, intact cruciate and collateral ligaments, no acute trabecular bone injury or focal cartilage defect, small joint effusion Treatment Goals Patient/Caregiver Goals increase ROM, decrease discomfort levels Current Functional Impairments (Reported) Functional Limitations- Recreation/ work out (does not do a lot of Hobbies stretching)- every other day light gardening 3x/wk (1 year) one year ago 1x/day (at home- body wt) PT-OP-C Subjective Start: 04/16/24 07:28 Freq: Status: Active Protocol: Document 06/03/24 09:48 NM (Rec: 06/03/24 10:34 NM [id number]) OP-PT Subjective Patient Comments Patient Comments Pt reports that her knee hurt a little yesterday, thinks just moving a lot. States / today, 10/04. Has not done HEP since friday due to 3x/wk PT-OP-E Functional Tests Start: 04/16/24 07:28 Freq: Status: Active Protocol: Document 04/16/24 08:15 NM (Rec: 04/16/24 09:03 NM [id number]) Functional Tests Squat Test Score 1 Comments pain immediately after in anterior PT-OP-F Manual Assessment Start: 04/16/24 07:28 Freq: Status: Active Protocol: Document 04/16/24 08:15 NM (Rec: 04/16/24 09:03 NM [id number]) Manual Assessments Soft Tissue Assessment Soft Tissue Mobility Assessment Increased HS tightness bilaterally, R>L; small effusion around R knee Joint Mobility Assessment Joint Mobility Assessment Lacking R knee extension in stance, limited patellar mobility PT-OP-G Mobility & Gait Start: 04/16/24 07:28 Freq: Status: Active Protocol: Document 04/16/24 08:15 NM (Rec: 04/16/24 09:03 NM [id number]) OP Gait Assessment Gait Gait Assistance Required: Independent Distance (Feet) 150 Assistive Devices Assistive Device None Gait Deviations General Gait Pattern Antalgic Factors Limiting Gait Function Factors Limiting Gait Function Decreased Activity Tolerance, Decreased Strength,Limited Range of Motion Comments Gait Comments Demos slight external rotation of R knee, slight decrease in foot clearance Stair Climbing Evaluation Technique/Endurance Stair Climbing Technique Step Over Step Number of Steps Climbed 4 Stair Climbing Set # Repetitions (reps) 1 Comments Stair Climbing Comments Demos valgus of R knee, pain with stepping down fro 4 and 6 steps. Mild pain with step up PT-OP-J Posture/Palpation/Skin Start: 04/16/24 07:28 Freq: Status: Active Protocol: Document 04/16/24 08:15 NM (Rec: 04/16/24 09:03 NM [id number]) Posture Evaluation Position Standing Head/C-Spine Posture Forward Head Pelvis Posture Anteriorly Tilted Weight Distribution Balanced Hip Posture (L) Externally Rotated,(R) Externally Rotated Knee Posture (L) Genu Valgus,(R) Genu Valgus,(R) Excess Flexion Patellar Posture (L) Superior,(R) Superior,(R) Medially Tilted Ankle/Foot Posture (L) Neutral,(R) Neutral Comments Posture Comments less knee ext R Palpation Assessment Location R knee Palpation Details no joint line tenderness tenderness only patellar tendon, inferior pole of patellar, peripatellar PT-OP-K Range of Motion Start: 04/16/24 07:28 Freq: Status: Active Protocol: Document 05/19/24 08:17 NM (Rec: 05/19/24 09:01 NM [id number]) Knee Goniometric Range of Motion Knee Right Flexion Active (degrees) 145 Extension Active (degrees) 6 Comments HS length 110 in fernanda position 05/19/24: lacking 1 deg ext Left Flexion Active (degrees) 146 Extension Active (degrees) 0 Comments HS length 105 deg in fernanda position PT-OP-L Special Tests Start: 04/16/24 07:28 Freq: Status: Active Protocol: Document 04/16/24 08:15 NM (Rec: 04/16/24 09:03 NM [id number]) Special Tests Knee Special Tests Samantha Test Test Results + Comments clicking present but no increase in pain Apley's Compression Test Results - PT-OP-M Strength Start: 04/16/24 07:28 Freq: Status: Active Protocol: Document 05/19/24 08:17 NM (Rec: 05/19/24 09:01 NM [id number]) Hip Strength Hip Manual Muscle Testing Right Flexion (L2) 4- Good- Extension (S1) 4- Good- Abduction 4- Good- Adduction 4 Good External Rotation 4 Good Internal Rotation 4 Good Comments 05/19/24: 4/5 for flex/abd Left Flexion (L2) 4- Good- Extension (S1) 4 Good Abduction 4 Good Adduction 4- Good- External Rotation 4 Good Internal Rotation 4 Good Knee Strength Knee Manual Muscle Testing Right Flexion (S2) 4 Good Extension (L3) 4 Good Comments pain with knee extension at patellar tendon 05/19/24: 4/5, no pain Left Flexion (S2) 4 Good Extension (L3) 4 Good PT-OP-Q Treatments Start: 04/16/24 07:28 Freq: Status: Active Protocol: Document 06/03/24 09:48 NM (Rec: 06/03/24 10:34 NM [id number]) Cardio Equipment Elliptical Duration (Minutes) 4 Resistance 3 Other warm up; cued alignment of knee-ankle; pain free Therapeutic Exercises Sitting Exercises LAQ Sitting Exercise Name cables: single leg (performed on both sides) Side bilateral Resistance level 1 cables Reps/Minutes 3x15 ea Comments still challenging; demos eccentric shakes tiffany w/ fatigue Standing Exercises single leg RDL Side bilateral Resistance 5.5# tball Equipment Used prn contra foot touch down to stabilize Reps/Minutes 1. 10 ea to 8, 2. 10 ea w/ passback btwn hands ea rep Comments good neutral spine; cued slight rhomboid facil for core brace squat Standing Exercise Name single leg squat w/ ball at wall (glute med) Side bilateral Equipment Used mirror for visual cues Reps/Minutes 2x10 ea Comments cued knee align w/ 2nd toe, limit valgus, inc hip hinge TKE Side right Resistance level 4 band at knee Reps/Minutes 10x5 hold Comments post manual tx Manual Therapy Treatment Consent Patient gave verbal consent for manual Yes treatment Soft Tissue Mobilization R knee Body Location HS, quad Mobilization Type Cross-Friction,Rolling Intensity/Depth Moderate Body Position Hooklying Joint Mobilizations R knee Joint tibiofemoral Direction post to ant tib on femur, sup glide patellar Grade III Reps/Duration 6x30 ea Comments Supine w/ patellar glide and sitting with tibial ER. Monitored for pain. To promote extension ROM. Lacking 2 deg at start of session, 0 deg at end of session Neuro Re-Education Treatment Balance Activities SLS Surface stable Reps/Duration 60 ea Comments red ball toss x 6ft from trampoline, prn opposite foot placement down for balance; cued TKE w/o locking knee to promote knee stability following manual tx PT-OP-T Assessment and Plan Start: 04/16/24 07:28 Freq: Status: Active Protocol: Document 06/03/24 09:48 NM (Rec: 06/03/24 10:34 NM [id number]) Physical Therapy Assessment Goals Five Impairment pain with stairs Short Term Goal (STG) Pt will be able to perform at least 8 step ups and step downs with R knee pain <5/10 in order to demonstrate improved form and symptom management 05/19/25: 20 4 step ups without knee pain, 10 on 6 stair STG Duration 8 weeks Long-Term Goal (LTG) Pt will report no limitation while performing standard flight of stairs or when ambulating on uneven surfaces in order to demonstrate improved symptom management 05/31/24: pt reports not having any trouble with stairs recently LTG Duration 12 weeks PROGRESSING Four Impairment pain at rest and with activity Short Term Goal (STG) Pt will report < 3/10 R knee pain at rest to demonstrate improved symptom management 05/19/24: reports 2/10 R knee pain at rest since PT 05/31/24: pt reports 1/10 in R knee pain at rest STG Duration 8 weeks [facility] [employer] Goal (LTG) Pt will report < 3/10 R knee pain with activity to demonstrate improved symptom management 05/31/24: pt reports 3/10 R knee pain depending on the activity LTG Duration 12 weeks PROGRESSING Three Impairment pain with exercise Short Term Goal (STG) Pt will be provided education on safe exercise with HEP and will report compliance with HEP at least 3x/wk in order to maximize progression with PT. 05/19/24: following prescription on HEP sheet STG Duration 3 weeks [facility] [employer] Goal (LTG) Pt will report compliance with HEP or independent exercise at least 3x/wk in order to demonstrate improved carryover and maintenance with progression LTG Duration 12 weeks Two Impairment strength R knee Short Term Goal (STG) Pt will improve R knee flexion /extension and R hip flexion/ abduction/extension strength to at least 4+/5 MMT in order to demonstrate increased strength for exercise and gait 05/19/24: 4/5 for all, pain free at knee STG Duration 8 weeks PROGRESSING Long-Term Goal (LTG) Pt will improve R knee flexion /extension and R hip flexion/ abduction/extension strength to at least 5/5 MMT in order to demonstrate increased strength for exercise and gait LTG Duration 12 weeks One Impairment R knee extension AROM limited to 6 deg Short Term Goal (STG) Pt will improve R knee extension AROM to at least 3 deg in order to demonstrate improved TKE for gait 05/19/24: lacking 1 deg of R knee extension STG Duration 6 weeks MET Long-Term Goal (LTG) Pt will improve R knee extension AROM to <3 deg in order to demonstrate improved TKE for gait 05/19/24: lacking 1 deg of R knee extension LTG Duration 12 weeks PROGRESSING Assessment Summary Assessment Pt responds well to increase in reps and resistance during therapeutic exercise. Trialed single leg squat with glute medius emphasis at wall; pt initially challenged with form but has improved knee alignment with reps. Pt demos improved R knee stability during elliptical, single leg RDL and single leg squat; requires occasional cues for core bracing and to limit knee valgus. However, pt pain free with all increase in activity . At start of session, lacking 2 deg of R knee extension but has 0 deg extension at end of session. Pt would benefit from skilled PT for progressive R knee mobility and strengthening in order to improve ability to participate in functional ADLs and work outs without increase in knee pain. Physical Therapy Plan Frequency and Duration Frequency of Treatment 1-2x/wk Duration of treatment (weeks) 12 Plan of Care Start Date 04/16/24 Plan of Care End Date 07/09/24 Therapeutic Interventions Therapeutic Interventions Balance Training,Gait Training ,Home Exercise Program,Joint Mobilizations,Manual Therapy, Neuromuscular Re-education, Orthotic/Prosthetic Management ,Patient/Caregiver Education, Self-Care/Home Management, Sensory Integration,Soft Tissue Mobilization,Taping, Therapeutic Activities, Therapeutic Exercises Modalities Cold Pack/Ice Massage,Electric Stimulation,Hot Packs, Ultrasound Next Visit Focus/Plan Next Note Type Treatment Note Next Visit Plan promote knee ext ROM Trial wall squat w/ ball vs Y drill. Progress cable LAQ resistance. Assess 8 step up, 6 lateral touch down; trial bosu step up. progress to eccentric step down. cont w/ proprioceptive training on stable and unstable surface Manual: STM and joint mobilizations as needed Plan of care: proprioception, BOSU squat(future)
--- NOTE | 2024-06-07 13:10 | PT.OTN ---
Current Diagnoses Pain in unspecified knee (06/07/24) Stiffness of right knee, not elsewhere classified (06/07/24) Other lack of coordination (06/07/24) Weakness (06/07/24) Physical Therapy Treatment Note PT-OP-A Visit Information Start: 04/16/24 07:28 Freq: Status: Active Protocol: Document 06/07/24 08:12 AB (Rec: 06/07/24 09:48 AB [id number]) Out-Patient Physical Therapy Visit Information Visit Information Visit Type Treatment Note Visit Note 02/01 post PN Access Code [id number] Visit Start Time 09:04 Visit Stop Time 09:46 Visit Number 13 Number of SEO EXPERT Visits 11 Evaluation Information Evaluation Date 04/16/24 Precautions Precautions hx of osteochondritis dessicans of R knee PT-OP-B Current Condition Start: 04/16/24 07:28 Freq: Status: Active Protocol: Document 04/16/24 08:15 NM (Rec: 04/16/24 09:03 NM [id number]) Current Condition History of Current Condition Onset Date chronic, 10 years ago Current Complaints pain, limited ROM History of Current Condition Pt reports that she injured her R knee with hyperextension at 10 years ago, states dx with OCD. States that she did not have any bracing or crutches; no surgery, no other treatment. Her R knee is bothering her, since she stepped in a rabbit hole at time of injury. She states it began getting worse 5 years ago, states became more aware of it. She states that is when she got a job, she was standing more which caused pain. Pt is planning to get in August, wants to get checked out for her knee. Recently, reports no changes other than hurting more frequently with activity, which is what prompted her to seek help. Pt reports that her knee bothers her when she works out (squats, lunges), going up stairs, unable to run very much, difficulty with cutting or turning, hills, uneven grounds, jumping. Pt reports that her knee has catches 2x in past (not recent, states can move and it will unlock), within last 7 years her knee has given out at least 5 times, cracks but not painful. Pt has gone to chiropractor, has has manual treatment. She has not seen an orthopedist. States that knee brace (sock brace)- compression helps on worse days. Prior Treatments and Tests MRI March 2024: questionable partial meniscocapsular tearing at posterior horn of medial meniscus, intact cruciate and collateral ligaments, no acute trabecular bone injury or focal cartilage defect, small joint effusion Treatment Goals Patient/Caregiver Goals increase ROM, decrease discomfort levels Current Functional Impairments (Reported) Functional Limitations- Recreation/ work out (does not do a lot of Hobbies stretching)- every other day light gardening 3x/wk (1 year) one year ago 1x/day (at home- body wt) PT-OP-C Subjective Start: 04/16/24 07:28 Freq: Status: Active Protocol: Document 06/07/24 08:12 AB (Rec: 06/07/24 09:48 AB [id number]) OP-PT Subjective Patient Comments Patient Comments Patient reports having no pain post elliptical, no pain now. Patient reports had and ache yesterday in the right knee and has not yet attempted running. AROM right knee lacking 7 deg extension start of session. PT-OP-E Functional Tests Start: 04/16/24 07:28 Freq: Status: Active Protocol: Document 04/16/24 08:15 NM (Rec: 04/16/24 09:03 NM [id number]) Functional Tests Squat Test Score 1 Comments pain immediately after in anterior PT-OP-F Manual Assessment Start: 04/16/24 07:28 Freq: Status: Active Protocol: Document 04/16/24 08:15 NM (Rec: 04/16/24 09:03 NM [id number]) Manual Assessments Soft Tissue Assessment Soft Tissue Mobility Assessment Increased HS tightness bilaterally, R>L; small effusion around R knee Joint Mobility Assessment Joint Mobility Assessment Lacking R knee extension in stance, limited patellar mobility PT-OP-G Mobility & Gait Start: 04/16/24 07:28 Freq: Status: Active Protocol: Document 04/16/24 08:15 NM (Rec: 04/16/24 09:03 NM [id number]) OP Gait Assessment Gait Gait Assistance Required: Independent Distance (Feet) 150 Assistive Devices Assistive Device None Gait Deviations General Gait Pattern Antalgic Factors Limiting Gait Function Factors Limiting Gait Function Decreased Activity Tolerance, Decreased Strength,Limited Range of Motion Comments Gait Comments Demos slight external rotation of R knee, slight decrease in foot clearance Stair Climbing Evaluation Technique/Endurance Stair Climbing Technique Step Over Step Number of Steps Climbed 4 Stair Climbing Set # Repetitions (reps) 1 Comments Stair Climbing Comments Demos valgus of R knee, pain with stepping down fro 4 and 6 steps. Mild pain with step up PT-OP-J Posture/Palpation/Skin Start: 04/16/24 07:28 Freq: Status: Active Protocol: Document 04/16/24 08:15 NM (Rec: 04/16/24 09:03 NM [id number]) Posture Evaluation Position Standing Head/C-Spine Posture Forward Head Pelvis Posture Anteriorly Tilted Weight Distribution Balanced Hip Posture (L) Externally Rotated,(R) Externally Rotated Knee Posture (L) Genu Valgus,(R) Genu Valgus,(R) Excess Flexion Patellar Posture (L) Superior,(R) Superior,(R) Medially Tilted Ankle/Foot Posture (L) Neutral,(R) Neutral Comments Posture Comments less knee ext R Palpation Assessment Location R knee Palpation Details no joint line tenderness tenderness only patellar tendon, inferior pole of patellar, peripatellar PT-OP-K Range of Motion Start: 04/16/24 07:28 Freq: Status: Active Protocol: Document 05/19/24 08:17 NM (Rec: 05/19/24 09:01 NM [id number]) Knee Goniometric Range of Motion Knee Right Flexion Active (degrees) 145 Extension Active (degrees) 6 Comments HS length 110 in fernanda position 05/19/24: lacking 1 deg ext Left Flexion Active (degrees) 146 Extension Active (degrees) 0 Comments HS length 105 deg in fernanda position PT-OP-L Special Tests Start: 04/16/24 07:28 Freq: Status: Active Protocol: Document 04/16/24 08:15 NM (Rec: 04/16/24 09:03 NM [id number]) Special Tests Knee Special Tests Samantha Test Test Results + Comments clicking present but no increase in pain Apley's Compression Test Results - PT-OP-M Strength Start: 04/16/24 07:28 Freq: Status: Active Protocol: Document 05/19/24 08:17 NM (Rec: 05/19/24 09:01 NM [id number]) Hip Strength Hip Manual Muscle Testing Right Flexion (L2) 4- Good- Extension (S1) 4- Good- Abduction 4- Good- Adduction 4 Good External Rotation 4 Good Internal Rotation 4 Good Comments 05/19/24: 4/5 for flex/abd Left Flexion (L2) 4- Good- Extension (S1) 4 Good Abduction 4 Good Adduction 4- Good- External Rotation 4 Good Internal Rotation 4 Good Knee Strength Knee Manual Muscle Testing Right Flexion (S2) 4 Good Extension (L3) 4 Good Comments pain with knee extension at patellar tendon 05/19/24: 4/5, no pain Left Flexion (S2) 4 Good Extension (L3) 4 Good PT-OP-Q Treatments Start: 04/16/24 07:28 Freq: Status: Active Protocol: Document 06/07/24 08:12 AB (Rec: 06/07/24 09:48 AB [id number]) Therapeutic Exercises Supine Exercises SLR Side right Reps/Minutes X10 Comments post manual and HS stretch HS stretch Supine Exercise Name HEP Side right Resistance from hookling Reps/Minutes 60 X2 Comments post manual Standing Exercises step down Standing Exercise Name with one UE support and mirror Side bilateral Resistance 10 lb second set same side as UE weight opposite Reps/Minutes X15 X2 each LE post X3 initially with VC prior to mirror use Comments verbal cues Bottoms up Standing Exercise Name HEP Side bilateral Reps/Minutes X10 x2 Comments Verbal and visual cues step up Standing Exercise Name 6 step up w/ hip flexion Side bilateral Reps/Minutes 10 Comments focus on full knee extension single leg RDL Side bilateral Resistance 5.5# tball Reps/Minutes X10 each LE Comments post HS stretch and bottoms up glute medius isometric Standing Exercise Name HEP Side bilateral Reps/Minutes 60 Comments prior to BOSU squat Manual Therapy Treatment Soft Tissue Mobilization R knee Body Location HS, Mobilization Type Cross-Friction,Rolling Intensity/Depth Moderate Body Position Hooklying Joint Mobilizations Patellar mobilization Joint inf, sup, med, lat Grade III Body Position Supine Reps/Duration X12 each direction R knee Joint tibiofemoral Direction PA Grade III Body Position Hooklying Reps/Duration X1- X 2 Neuro Re-Education Treatment Balance Activities BOSU Details Squat, 2. step up with opp hip flexion Equipment BOSU Reps/Duration 1. X20 2. X 10 PT-OP-T Assessment and Plan Start: 04/16/24 07:28 Freq: Status: Active Protocol: Document 06/07/24 08:12 AB (Rec: 06/07/24 09:48 AB [id number]) Physical Therapy Assessment Goals Five Impairment pain with stairs Short Term Goal (STG) Pt will be able to perform at least 8 step ups and step downs with R knee pain <5/10 in order to demonstrate improved form and symptom management 05/19/25: 20 4 step ups without knee pain, 10 on 6 stair STG Duration 8 weeks Call Center Support Representative Goal (LTG) Pt will report no limitation while performing standard flight of stairs or when ambulating on uneven surfaces in order to demonstrate improved symptom management 05/31/24: pt reports not having any trouble with stairs recently LTG Duration 12 weeks PROGRESSING Four Impairment pain at rest and with activity Short Term Goal (STG) Pt will report < 3/10 R knee pain at rest to demonstrate improved symptom management 05/19/24: reports 2/10 R knee pain at rest since PT 05/31/24: pt reports 1/10 in R knee pain at rest STG Duration 8 weeks MET Correction Goal (LTG) Pt will report < 3/10 R knee pain with activity to demonstrate improved symptom management 05/31/24: pt reports 3/10 R knee pain depending on the activity LTG Duration 12 weeks PROGRESSING Three Impairment pain with exercise Short Term Goal (STG) Pt will be provided education on safe exercise with HEP and will report compliance with HEP at least 3x/wk in order to maximize progression with PT. 05/19/24: following prescription on HEP sheet STG Duration 3 weeks MET Call Center Support Representative Goal (LTG) Pt will report compliance with HEP or independent exercise at least 3x/wk in order to demonstrate improved carryover and maintenance with progression LTG Duration 12 weeks Two Impairment strength R knee Short Term Goal (STG) Pt will improve R knee flexion /extension and R hip flexion/ abduction/extension strength to at least 4+/5 MMT in order to demonstrate increased strength for exercise and gait 05/19/24: 4/5 for all, pain free at knee STG Duration 8 weeks PROGRESSING Correction Goal (LTG) Pt will improve R knee flexion /extension and R hip flexion/ abduction/extension strength to at least 5/5 MMT in order to demonstrate increased strength for exercise and gait LTG Duration 12 weeks One Impairment R knee extension AROM limited to 6 deg Short Term Goal (STG) Pt will improve R knee extension AROM to at least 3 deg in order to demonstrate improved TKE for gait 05/19/24: lacking 1 deg of R knee extension STG Duration 6 weeks MET Call Center Support Representative Goal (LTG) Pt will improve R knee extension AROM to <3 deg in order to demonstrate improved TKE for gait 05/19/24: lacking 1 deg of R knee extension LTG Duration 12 weeks PROGRESSING Assessment Summary Assessment lacking 5 deg post manual therapy and exercise right knee extension. Patient continues to require mirror to avoid dynamic valgus right LE with 6 inch step down. Physical Therapy Plan Frequency and Duration Frequency of Treatment 1-2x/wk Duration of treatment (weeks) 12 Plan of Care Start Date 04/16/24 Plan of Care End Date 07/09/24 Next Visit Focus/Plan Next Note Type Treatment Note Next Visit Plan promote knee ext ROM Trial wall squat w/ ball vs Y drill. Progress cable LAQ resistance. Assess 8 step up, 6 lateral touch down; trial bosu step up. progress to eccentric step down. cont w/ proprioceptive training on stable and unstable surface Manual: STM and joint mobilizations as needed Plan of care: proprioception, BOSU squat(future)
--- NOTE | 2024-06-11 09:56 | PT.OTN ---
Current Diagnoses Pain in unspecified knee (06/11/24) Stiffness of right knee, not elsewhere classified (06/11/24) Other lack of coordination (06/11/24) Weakness (06/11/24) Physical Therapy Treatment Note PT-OP-A Visit Information Start: 04/16/24 07:28 Freq: Status: Active Protocol: Document 06/11/24 08:06 AB (Rec: 06/11/24 09:56 AB [id number]) Out-Patient Physical Therapy Visit Information Visit Information Visit Type Treatment Note Visit Note 03/03 post PN Access Code [id number] Visit Start Time 09:03 Visit Stop Time 09:45 Visit Number 14 Number of INDIVIDUAL PENSION ADVISER Visits 2 Evaluation Information Evaluation Date 04/16/24 Precautions Precautions hx of osteochondritis dessicans of R knee PT-OP-B Current Condition Start: 04/16/24 07:28 Freq: Status: Active Protocol: Document 04/16/24 08:15 NM (Rec: 04/16/24 09:03 NM [id number]) Current Condition History of Current Condition Onset Date chronic, 10 years ago Current Complaints pain, limited ROM History of Current Condition Pt reports that she injured her R knee with hyperextension at 10 years ago, states dx with OCD. States that she did not have any bracing or crutches; no surgery, no other treatment. Her R knee is bothering her, since she stepped in a rabbit hole at time of injury. She states it began getting worse 5 years ago, states became more aware of it. She states that is when she got a job, she was standing more which caused pain. Pt is planning to get in August, wants to get checked out for her knee. Recently, reports no changes other than hurting more frequently with activity, which is what prompted her to seek help. Pt reports that her knee bothers her when she works out (squats, lunges), going up stairs, unable to run very much, difficulty with cutting or turning, hills, uneven grounds, jumping. Pt reports that her knee has catches 2x in past (not recent, states can move and it will unlock), within last 7 years her knee has given out at least 5 times, cracks but not painful. Pt has gone to chiropractor, has has manual treatment. She has not seen an orthopedist. States that knee brace (sock brace)- compression helps on worse days. Prior Treatments and Tests MRI March 2024: questionable partial meniscocapsular tearing at posterior horn of medial meniscus, intact cruciate and collateral ligaments, no acute trabecular bone injury or focal cartilage defect, small joint effusion Treatment Goals Patient/Caregiver Goals increase ROM, decrease discomfort levels Current Functional Impairments (Reported) Functional Limitations- Recreation/ work out (does not do a lot of Hobbies stretching)- every other day light gardening 3x/wk (1 year) one year ago 1x/day (at home- body wt) PT-OP-C Subjective Start: 04/16/24 07:28 Freq: Status: Active Protocol: Document 06/11/24 08:06 AB (Rec: 06/11/24 09:56 AB [id number]) OP-PT Subjective Patient Comments Patient Comments Patient reports she is more sore today, comments she did the more difficult HEP exercises yesterday. Patient rates right knee pain 2/10 start of session. AROM lacking 5 deg ext to 150 deg flexion start of session right knee. Bruise ant to proximal fib right LE. PT-OP-E Functional Tests Start: 04/16/24 07:28 Freq: Status: Active Protocol: Document 04/16/24 08:15 NM (Rec: 04/16/24 09:03 NM [id number]) Functional Tests Squat Test Score 1 Comments pain immediately after in anterior PT-OP-F Manual Assessment Start: 04/16/24 07:28 Freq: Status: Active Protocol: Document 04/16/24 08:15 NM (Rec: 04/16/24 09:03 NM [id number]) Manual Assessments Soft Tissue Assessment Soft Tissue Mobility Assessment Increased HS tightness bilaterally, R>L; small effusion around R knee Joint Mobility Assessment Joint Mobility Assessment Lacking R knee extension in stance, limited patellar mobility PT-OP-G Mobility & Gait Start: 04/16/24 07:28 Freq: Status: Active Protocol: Document 04/16/24 08:15 NM (Rec: 04/16/24 09:03 NM [id number]) OP Gait Assessment Gait Gait Assistance Required: Independent Distance (Feet) 150 Assistive Devices Assistive Device None Gait Deviations General Gait Pattern Antalgic Factors Limiting Gait Function Factors Limiting Gait Function Decreased Activity Tolerance, Decreased Strength,Limited Range of Motion Comments Gait Comments Demos slight external rotation of R knee, slight decrease in foot clearance Stair Climbing Evaluation Technique/Endurance Stair Climbing Technique Step Over Step Number of Steps Climbed 4 Stair Climbing Set # Repetitions (reps) 1 Comments Stair Climbing Comments Demos valgus of R knee, pain with stepping down fro 4 and 6 steps. Mild pain with step up PT-OP-J Posture/Palpation/Skin Start: 04/16/24 07:28 Freq: Status: Active Protocol: Document 04/16/24 08:15 NM (Rec: 04/16/24 09:03 NM [id number]) Posture Evaluation Position Standing Head/C-Spine Posture Forward Head Pelvis Posture Anteriorly Tilted Weight Distribution Balanced Hip Posture (L) Externally Rotated,(R) Externally Rotated Knee Posture (L) Genu Valgus,(R) Genu Valgus,(R) Excess Flexion Patellar Posture (L) Superior,(R) Superior,(R) Medially Tilted Ankle/Foot Posture (L) Neutral,(R) Neutral Comments Posture Comments less knee ext R Palpation Assessment Location R knee Palpation Details no joint line tenderness tenderness only patellar tendon, inferior pole of patellar, peripatellar PT-OP-K Range of Motion Start: 04/16/24 07:28 Freq: Status: Active Protocol: Document 05/19/24 08:17 NM (Rec: 05/19/24 09:01 NM [id number]) Knee Goniometric Range of Motion Knee Right Flexion Active (degrees) 145 Extension Active (degrees) 6 Comments HS length 110 in fernanda position 05/19/24: lacking 1 deg ext Left Flexion Active (degrees) 146 Extension Active (degrees) 0 Comments HS length 105 deg in fernanda position PT-OP-L Special Tests Start: 04/16/24 07:28 Freq: Status: Active Protocol: Document 04/16/24 08:15 NM (Rec: 04/16/24 09:03 NM [id number]) Special Tests Knee Special Tests Samantha Test Test Results + Comments clicking present but no increase in pain Apley's Compression Test Results - PT-OP-M Strength Start: 04/16/24 07:28 Freq: Status: Active Protocol: Document 05/19/24 08:17 NM (Rec: 05/19/24 09:01 NM [id number]) Hip Strength Hip Manual Muscle Testing Right Flexion (L2) 4- Good- Extension (S1) 4- Good- Abduction 4- Good- Adduction 4 Good External Rotation 4 Good Internal Rotation 4 Good Comments 05/19/24: 4/5 for flex/abd Left Flexion (L2) 4- Good- Extension (S1) 4 Good Abduction 4 Good Adduction 4- Good- External Rotation 4 Good Internal Rotation 4 Good Knee Strength Knee Manual Muscle Testing Right Flexion (S2) 4 Good Extension (L3) 4 Good Comments pain with knee extension at patellar tendon 05/19/24: 4/5, no pain Left Flexion (S2) 4 Good Extension (L3) 4 Good PT-OP-Q Treatments Start: 04/16/24 07:28 Freq: Status: Active Protocol: Document 06/11/24 08:06 AB (Rec: 06/11/24 09:56 AB [id number]) Therapeutic Exercises Supine Exercises SLR Side right Reps/Minutes X10 X2 Comments post manual and HS stretch HS stretch Supine Exercise Name HEP Side right Resistance from hookling Reps/Minutes 60 X2 Comments post manual Standing Exercises single leg RDL Side bilateral Resistance 5.5# tball Reps/Minutes X10 each LE Comments post HS stretch squat Standing Exercise Name ball squats on wall, focus on end ROM ext when reaching upright Reps/Minutes X10 Comments verbal cues for focus on end range extension glute medius isometric Standing Exercise Name HEP Side bilateral Reps/Minutes 60 Comments prior to BOSU squat Manual Therapy Treatment Soft Tissue Mobilization R knee Body Location HS, right knee peripatallar, lat and med into quad Mobilization Type Cross-Friction,Rolling Intensity/Depth Moderate Body Position Hooklying Joint Mobilizations R knee Joint tibiofemoral Direction PA Grade III Body Position Hooklying Reps/Duration X1- X 2 Taping right knee Treatment Focus unload fat pad Type of Tape KT 2 fat pads inf pat, medial and lat to pat 70% strch prx direct, Skin Inspection WNL Comments Pt ed to remove in 3-5 days or immediately if skin irritation occurs. Neuro Re-Education Treatment Balance Activities BOSU Details Squat flat side, 2.round step up with opp hip flexion Surface bilateral Equipment BOSU Reps/Duration 1. X20 2. X 10 SLS Details on air ex with red ball catch Equipment 3 min Comments left and right LE, supervision PT-OP-T Assessment and Plan Start: 04/16/24 07:28 Freq: Status: Active Protocol: Document 06/11/24 08:06 AB (Rec: 06/11/24 09:56 AB [id number]) Physical Therapy Assessment Goals Five Impairment pain with stairs Short Term Goal (STG) Pt will be able to perform at least 8 step ups and step downs with R knee pain <5/10 in order to demonstrate improved form and symptom management 05/19/25: 20 4 step ups without knee pain, 10 on 6 stair STG Duration 8 weeks Investigative Assistant Goal (LTG) Pt will report no limitation while performing standard flight of stairs or when ambulating on uneven surfaces in order to demonstrate improved symptom management 05/31/24: pt reports not having any trouble with stairs recently LTG Duration 12 weeks PROGRESSING Four Impairment pain at rest and with activity Short Term Goal (STG) Pt will report < 3/10 R knee pain at rest to demonstrate improved symptom management 05/19/24: reports 2/10 R knee pain at rest since PT 05/31/24: pt reports 1/10 in R knee pain at rest STG Duration 8 weeks MET Nursing Home Goal (LTG) Pt will report < 3/10 R knee pain with activity to demonstrate improved symptom management 05/31/24: pt reports 3/10 R knee pain depending on the activity LTG Duration 12 weeks PROGRESSING Three Impairment pain with exercise Short Term Goal (STG) Pt will be provided education on safe exercise with HEP and will report compliance with HEP at least 3x/wk in order to maximize progression with PT. 05/19/24: following prescription on HEP sheet STG Duration 3 weeks MET Investigative Assistant Goal (LTG) Pt will report compliance with HEP or independent exercise at least 3x/wk in order to demonstrate improved carryover and maintenance with progression LTG Duration 12 weeks Two Impairment strength R knee Short Term Goal (STG) Pt will improve R knee flexion /extension and R hip flexion/ abduction/extension strength to at least 4+/5 MMT in order to demonstrate increased strength for exercise and gait 05/19/24: 4/5 for all, pain free at knee STG Duration 8 weeks PROGRESSING Nursing Home Goal (LTG) Pt will improve R knee flexion /extension and R hip flexion/ abduction/extension strength to at least 5/5 MMT in order to demonstrate increased strength for exercise and gait LTG Duration 12 weeks One Impairment R knee extension AROM limited to 6 deg Short Term Goal (STG) Pt will improve R knee extension AROM to at least 3 deg in order to demonstrate improved TKE for gait 05/19/24: lacking 1 deg of R knee extension STG Duration 6 weeks MET Nursing Home Goal (LTG) Pt will improve R knee extension AROM to <3 deg in order to demonstrate improved TKE for gait 05/19/24: lacking 1 deg of R knee extension LTG Duration 12 weeks PROGRESSING Assessment Summary Assessment Lacking 3 deg extension AROM right knee in supine post manual therapy and exercise. Patient reports having no pain end of session. Focus on end ROM knee ext with squat exercises this session. Physical Therapy Plan Frequency and Duration Frequency of Treatment 1-2x/wk Duration of treatment (weeks) 12 Plan of Care Start Date 04/16/24 Plan of Care End Date 07/09/24 Next Visit Focus/Plan Next Note Type Treatment Note Next Visit Plan promote knee ext ROM Trial wall squat w/ ball vs Y drill. Progress cable LAQ resistance. Assess 8 step up, 6 lateral touch down; trial bosu step up. progress to eccentric step down. cont w/ proprioceptive training on stable and unstable surface Manual: STM and joint mobilizations as needed Plan of care: proprioception, BOSU squat(future)
--- NOTE | 2024-06-15 14:57 | PT.OTN ---
Current Diagnoses Pain in unspecified knee (06/15/24) Stiffness of right knee, not elsewhere classified (06/15/24) Other lack of coordination (06/15/24) Weakness (06/15/24) Physical Therapy Treatment Note PT-OP-A Visit Information Start: 04/16/24 07:28 Freq: Status: Active Protocol: Document 06/15/24 11:29 NM (Rec: 06/15/24 12:25 NM [id number]) Out-Patient Physical Therapy Visit Information Visit Information Visit Type Treatment Note Visit Note 04/03 post PN Access Code [id number] Visit Start Time 11:31 Visit Stop Time 12:15 Visit Number 15 Evaluation Information Evaluation Date 04/16/24 Precautions Precautions hx of osteochondritis dessicans of R knee PT-OP-B Current Condition Start: 04/16/24 07:28 Freq: Status: Active Protocol: Document 04/16/24 08:15 NM (Rec: 04/16/24 09:03 NM [id number]) Current Condition History of Current Condition Onset Date chronic, 10 years ago Current Complaints pain, limited ROM History of Current Condition Pt reports that she injured her R knee with hyperextension at 10 years ago, states dx with OCD. States that she did not have any bracing or crutches; no surgery, no other treatment. Her R knee is bothering her, since she stepped in a rabbit hole at time of injury. She states it began getting worse 5 years ago, states became more aware of it. She states that is when she got a job, she was standing more which caused pain. Pt is planning to get in August, wants to get checked out for her knee. Recently, reports no changes other than hurting more frequently with activity, which is what prompted her to seek help. Pt reports that her knee bothers her when she works out (squats, lunges), going up stairs, unable to run very much, difficulty with cutting or turning, hills, uneven grounds, jumping. Pt reports that her knee has catches 2x in past (not recent, states can move and it will unlock), within last 7 years her knee has given out at least 5 times, cracks but not painful. Pt has gone to chiropractor, has has manual treatment. She has not seen an orthopedist. States that knee brace (sock brace)- compression helps on worse days. Prior Treatments and Tests MRI March 2024: questionable partial meniscocapsular tearing at posterior horn of medial meniscus, intact cruciate and collateral ligaments, no acute trabecular bone injury or focal cartilage defect, small joint effusion Treatment Goals Patient/Caregiver Goals increase ROM, decrease discomfort levels Current Functional Impairments (Reported) Functional Limitations- Recreation/ work out (does not do a lot of Hobbies stretching)- every other day light gardening 3x/wk (1 year) one year ago 1x/day (at home- body wt) PT-OP-C Subjective Start: 04/16/24 07:28 Freq: Status: Active Protocol: Document 06/15/24 11:29 NM (Rec: 06/15/24 12:25 NM [id number]) OP-PT Subjective Patient Comments Patient Comments Pt reports just got over sickness, states did not do HEP due stretches. PT-OP-E Functional Tests Start: 04/16/24 07:28 Freq: Status: Active Protocol: Document 04/16/24 08:15 NM (Rec: 04/16/24 09:03 NM [id number]) Functional Tests Squat Test Score 1 Comments pain immediately after in anterior PT-OP-F Manual Assessment Start: 04/16/24 07:28 Freq: Status: Active Protocol: Document 04/16/24 08:15 NM (Rec: 04/16/24 09:03 NM [id number]) Manual Assessments Soft Tissue Assessment Soft Tissue Mobility Assessment Increased HS tightness bilaterally, R>L; small effusion around R knee Joint Mobility Assessment Joint Mobility Assessment Lacking R knee extension in stance, limited patellar mobility PT-OP-G Mobility & Gait Start: 04/16/24 07:28 Freq: Status: Active Protocol: Document 04/16/24 08:15 NM (Rec: 04/16/24 09:03 NM [id number]) OP Gait Assessment Gait Gait Assistance Required: Independent Distance (Feet) 150 Assistive Devices Assistive Device None Gait Deviations General Gait Pattern Antalgic Factors Limiting Gait Function Factors Limiting Gait Function Decreased Activity Tolerance, Decreased Strength,Limited Range of Motion Comments Gait Comments Demos slight external rotation of R knee, slight decrease in foot clearance Stair Climbing Evaluation Technique/Endurance Stair Climbing Technique Step Over Step Number of Steps Climbed 4 Stair Climbing Set # Repetitions (reps) 1 Comments Stair Climbing Comments Demos valgus of R knee, pain with stepping down fro 4 and 6 steps. Mild pain with step up PT-OP-J Posture/Palpation/Skin Start: 04/16/24 07:28 Freq: Status: Active Protocol: Document 04/16/24 08:15 NM (Rec: 04/16/24 09:03 NM [id number]) Posture Evaluation Position Standing Head/C-Spine Posture Forward Head Pelvis Posture Anteriorly Tilted Weight Distribution Balanced Hip Posture (L) Externally Rotated,(R) Externally Rotated Knee Posture (L) Genu Valgus,(R) Genu Valgus,(R) Excess Flexion Patellar Posture (L) Superior,(R) Superior,(R) Medially Tilted Ankle/Foot Posture (L) Neutral,(R) Neutral Comments Posture Comments less knee ext R Palpation Assessment Location R knee Palpation Details no joint line tenderness tenderness only patellar tendon, inferior pole of patellar, peripatellar PT-OP-K Range of Motion Start: 04/16/24 07:28 Freq: Status: Active Protocol: Document 05/19/24 08:17 NM (Rec: 05/19/24 09:01 NM [id number]) Knee Goniometric Range of Motion Knee Right Flexion Active (degrees) 145 Extension Active (degrees) 6 Comments HS length 110 in fernanda position 05/19/24: lacking 1 deg ext Left Flexion Active (degrees) 146 Extension Active (degrees) 0 Comments HS length 105 deg in fernanda position PT-OP-L Special Tests Start: 04/16/24 07:28 Freq: Status: Active Protocol: Document 04/16/24 08:15 NM (Rec: 04/16/24 09:03 NM [id number]) Special Tests Knee Special Tests Samantha Test Test Results + Comments clicking present but no increase in pain Apley's Compression Test Results - PT-OP-M Strength Start: 04/16/24 07:28 Freq: Status: Active Protocol: Document 05/19/24 08:17 NM (Rec: 05/19/24 09:01 NM [id number]) Hip Strength Hip Manual Muscle Testing Right Flexion (L2) 4- Good- Extension (S1) 4- Good- Abduction 4- Good- Adduction 4 Good External Rotation 4 Good Internal Rotation 4 Good Comments 05/19/24: 4/5 for flex/abd Left Flexion (L2) 4- Good- Extension (S1) 4 Good Abduction 4 Good Adduction 4- Good- External Rotation 4 Good Internal Rotation 4 Good Knee Strength Knee Manual Muscle Testing Right Flexion (S2) 4 Good Extension (L3) 4 Good Comments pain with knee extension at patellar tendon 05/19/24: 4/5, no pain Left Flexion (S2) 4 Good Extension (L3) 4 Good PT-OP-Q Treatments Start: 04/16/24 07:28 Freq: Status: Active Protocol: Document 06/15/24 11:29 NM (Rec: 06/15/24 12:25 NM [id number]) Gym Equipment Shuttle Recovery plyometric Details gentle B jump; cued land midfoot for softer impact Resistance 12# Shuttle Recovery Platform Stable Reps/Time 2x15 Therapeutic Exercises Standing Exercises lunges Standing Exercise Name pulse lunges Side bilateral Equipment Used small ROM Reps/Minutes 1. 30 ea, 2. 30 ea w/ 8# wts Comments trialed for impact prep; no knee pain; good align triple extension Standing Exercise Name reverse lunge > hip flexion w/ single leg heel raise Side bilateral Resistance AROM Equipment Used wall for support (B hands) for power Reps/Minutes 10 ea Comments with flexion, reports mild pain in R patellar squat Standing Exercise Name glute med squats single leg at wall Side bilateral Equipment Used blue palestinian ball Reps/Minutes 2x5 ea Comments verbal cues end range ext; knee alignment; fatiguing Manual Therapy Treatment Consent Patient gave verbal consent for manual Yes treatment Soft Tissue Mobilization R knee Body Location HS, right knee peripatallar, lat and med into quad Mobilization Type Cross-Friction,Rolling Intensity/Depth Moderate Body Position Hooklying Joint Mobilizations Patellar mobilization Joint inf, sup, med, lat Grade III Body Position Supine Reps/Duration 10 each direction R knee Joint tibiofemoral Direction PA Grade III Reps/Duration 2x30 Comments 1. hooklying 2. sitting w/ tibial ER for TKE Neuro Re-Education Treatment Balance Activities BOSU Reps/Duration 2 minutes continuous squats Comments squat w/ 8# on flat side Cued for equal WB, tendency to shift wt to L foot rockerboard Equipment green ball, trampoline toss Reps/Duration performed on ea leg, ea position Comments 1. A/P 2. M/L Prn foot placement down for balance, L>R SLS Surface stable Equipment trampoline Comments ball toss- green ball stable surface PT-OP-T Assessment and Plan Start: 04/16/24 07:28 Freq: Status: Active Protocol: Document 06/15/24 11:29 NM (Rec: 06/15/24 12:25 NM [id number]) Physical Therapy Assessment Goals Five Impairment pain with stairs Short Term Goal (STG) Pt will be able to perform at least 8 step ups and step downs with R knee pain <5/10 in order to demonstrate improved form and symptom management 05/19/25: 20 4 step ups without knee pain, 10 on 6 stair STG Duration 8 weeks Greeting Card Editor Goal (LTG) Pt will report no limitation while performing standard flight of stairs or when ambulating on uneven surfaces in order to demonstrate improved symptom management 05/31/24: pt reports not having any trouble with stairs recently LTG Duration 12 weeks PROGRESSING Four Impairment pain at rest and with activity Short Term Goal (STG) Pt will report < 3/10 R knee pain at rest to demonstrate improved symptom management 05/19/24: reports 2/10 R knee pain at rest since PT 05/31/24: pt reports 1/10 in R knee pain at rest STG Duration 8 weeks [facility] Goal (LTG) Pt will report < 3/10 R knee pain with activity to demonstrate improved symptom management 05/31/24: pt reports 3/10 R knee pain depending on the activity LTG Duration 12 weeks PROGRESSING Three Impairment pain with exercise Short Term Goal (STG) Pt will be provided education on safe exercise with HEP and will report compliance with HEP at least 3x/wk in order to maximize progression with PT. 05/19/24: following prescription on HEP sheet STG Duration 3 weeks [facility] Goal (LTG) Pt will report compliance with HEP or independent exercise at least 3x/wk in order to demonstrate improved carryover and maintenance with progression LTG Duration 12 weeks Two Impairment strength R knee Short Term Goal (STG) Pt will improve R knee flexion /extension and R hip flexion/ abduction/extension strength to at least 4+/5 MMT in order to demonstrate increased strength for exercise and gait 05/19/24: 4/5 for all, pain free at knee STG Duration 8 weeks PROGRESSING [facility] Goal (LTG) Pt will improve R knee flexion /extension and R hip flexion/ abduction/extension strength to at least 5/5 MMT in order to demonstrate increased strength for exercise and gait LTG Duration 12 weeks One Impairment R knee extension AROM limited to 6 deg Short Term Goal (STG) Pt will improve R knee extension AROM to at least 3 deg in order to demonstrate improved TKE for gait 05/19/24: lacking 1 deg of R knee extension STG Duration 6 weeks [facility] Goal (LTG) Pt will improve R knee extension AROM to <3 deg in order to demonstrate improved TKE for gait 05/19/24: lacking 1 deg of R knee extension LTG Duration 12 weeks PROGRESSING Assessment Summary Assessment Pt tolerated session well. Lacking 2 deg of R knee extension at end of session. Trialed plyometric and gentle pre-impact training to determine tolerance for trialing running. Pt responds well to gentle jumping on leg press, but does report mild pain at patella with knee flexion during triple extension. Not present during pulse lunges. Likely related to poor movement of patellar in trochlear groove from limitations in knee extension. Improved knee alignment indicating better quad control with proprioceptive activities on unstable surfaces and with perturbation . Continues to demonstrate improvements in TKE and quad activation without pain during single leg squats. Pt would benefit from skilled PT for progressive strengthening and ROM on R knee in order for pt return to exercise and perform impact-related tasks (e.g. running) with improved symptom management. Physical Therapy Plan Frequency and Duration Frequency of Treatment 1-2x/wk Duration of treatment (weeks) 12 Plan of Care Start Date 04/16/24 Plan of Care End Date 07/09/24 Therapeutic Interventions Therapeutic Interventions Balance Training,Gait Training ,Home Exercise Program,Joint Mobilizations,Manual Therapy, Neuromuscular Re-education, Orthotic/Prosthetic Management ,Patient/Caregiver Education, Self-Care/Home Management, Sensory Integration,Soft Tissue Mobilization,Taping, Therapeutic Activities, Therapeutic Exercises Modalities Cold Pack/Ice Massage,Electric Stimulation,Hot Packs, Ultrasound Next Visit Focus/Plan Next Note Type Treatment Note Next Visit Plan PN on 06/21 visit; promote knee ext ROM tiffany with squats/ functional. Determine tolerance for impact/lunges/ jumping on press Retrial glute med SL squat w/ ball, triple ext vs lunges ( reverse or stepping). Progress cable LAQ resistance. Cont proprioceptive bosu, rockerboard, etc. Manual: STM and joint mobilizations as needed Plan of care: proprioception, BOSU squat (future)
--- NOTE | 2024-06-21 11:54 | PT.OTN ---
Current Diagnoses Pain in unspecified knee (06/21/24) Stiffness of right knee, not elsewhere classified (06/21/24) Other lack of coordination (06/21/24) Weakness (06/21/24) Physical Therapy Treatment Note PT-OP-A Visit Information Start: 04/16/24 07:28 Freq: Status: Active Protocol: Document 06/21/24 09:01 NM (Rec: 06/21/24 09:45 NM [id number]) Out-Patient Physical Therapy Visit Information Visit Information Visit Type Progress Note Visit Note 05/04 post PN Access Code [id number] Visit Start Time 09:02 Visit Stop Time 09:45 Visit Number 16 Evaluation Information Evaluation Date 04/16/24 Precautions Precautions hx of osteochondritis dessicans of R knee PT-OP-B Current Condition Start: 04/16/24 07:28 Freq: Status: Active Protocol: Document 04/16/24 08:15 NM (Rec: 04/16/24 09:03 NM [id number]) Current Condition History of Current Condition Onset Date chronic, 10 years ago Current Complaints pain, limited ROM History of Current Condition Pt reports that she injured her R knee with hyperextension at 10 years ago, states dx with OCD. States that she did not have any bracing or crutches; no surgery, no other treatment. Her R knee is bothering her, since she stepped in a rabbit hole at time of injury. She states it began getting worse 5 years ago, states became more aware of it. She states that is when she got a job, she was standing more which caused pain. Pt is planning to get in August, wants to get checked out for her knee. Recently, reports no changes other than hurting more frequently with activity, which is what prompted her to seek help. Pt reports that her knee bothers her when she works out (squats, lunges), going up stairs, unable to run very much, difficulty with cutting or turning, hills, uneven grounds, jumping. Pt reports that her knee has catches 2x in past (not recent, states can move and it will unlock), within last 7 years her knee has given out at least 5 times, cracks but not painful. Pt has gone to chiropractor, has has manual treatment. She has not seen an orthopedist. States that knee brace (sock brace)- compression helps on worse days. Prior Treatments and Tests MRI March 2024: questionable partial meniscocapsular tearing at posterior horn of medial meniscus, intact cruciate and collateral ligaments, no acute trabecular bone injury or focal cartilage defect, small joint effusion Treatment Goals Patient/Caregiver Goals increase ROM, decrease discomfort levels Current Functional Impairments (Reported) Functional Limitations- Recreation/ work out (does not do a lot of Hobbies stretching)- every other day light gardening 3x/wk (1 year) one year ago 1x/day (at home- body wt) PT-OP-C Subjective Start: 04/16/24 07:28 Freq: Status: Active Protocol: Document 06/21/24 09:01 NM (Rec: 06/21/24 09:45 NM [id number]) OP-PT Subjective Patient Comments Patient Comments Pt reports that her knee has been good. She just did her heavy workout yesterday. She continues to have pain with running 4-5/10. Pt reports that she feels like she has improved since starting PT. She reports that she has less stiffness, walking less wobbly. States normal 1/10 R knee pain with walking otherwise no pain. She states that she is more concerned with strengthening, states does not need to get back into running. PT-OP-E Functional Tests Start: 04/16/24 07:28 Freq: Status: Active Protocol: Document 04/16/24 08:15 NM (Rec: 04/16/24 09:03 NM [id number]) Functional Tests Squat Test Score 1 Comments pain immediately after in anterior PT-OP-F Manual Assessment Start: 04/16/24 07:28 Freq: Status: Active Protocol: Document 04/16/24 08:15 NM (Rec: 04/16/24 09:03 NM [id number]) Manual Assessments Soft Tissue Assessment Soft Tissue Mobility Assessment Increased HS tightness bilaterally, R>L; small effusion around R knee Joint Mobility Assessment Joint Mobility Assessment Lacking R knee extension in stance, limited patellar mobility PT-OP-G Mobility & Gait Start: 04/16/24 07:28 Freq: Status: Active Protocol: Document 04/16/24 08:15 NM (Rec: 04/16/24 09:03 NM [id number]) OP Gait Assessment Gait Gait Assistance Required: Independent Distance (Feet) 150 Assistive Devices Assistive Device None Gait Deviations General Gait Pattern Antalgic Factors Limiting Gait Function Factors Limiting Gait Function Decreased Activity Tolerance, Decreased Strength,Limited Range of Motion Comments Gait Comments Demos slight external rotation of R knee, slight decrease in foot clearance Stair Climbing Evaluation Technique/Endurance Stair Climbing Technique Step Over Step Number of Steps Climbed 4 Stair Climbing Set # Repetitions (reps) 1 Comments Stair Climbing Comments Demos valgus of R knee, pain with stepping down fro 4 and 6 steps. Mild pain with step up PT-OP-J Posture/Palpation/Skin Start: 04/16/24 07:28 Freq: Status: Active Protocol: Document 04/16/24 08:15 NM (Rec: 04/16/24 09:03 NM [id number]) Posture Evaluation Position Standing Head/C-Spine Posture Forward Head Pelvis Posture Anteriorly Tilted Weight Distribution Balanced Hip Posture (L) Externally Rotated,(R) Externally Rotated Knee Posture (L) Genu Valgus,(R) Genu Valgus,(R) Excess Flexion Patellar Posture (L) Superior,(R) Superior,(R) Medially Tilted Ankle/Foot Posture (L) Neutral,(R) Neutral Comments Posture Comments less knee ext R Palpation Assessment Location R knee Palpation Details no joint line tenderness tenderness only patellar tendon, inferior pole of patellar, peripatellar PT-OP-K Range of Motion Start: 04/16/24 07:28 Freq: Status: Active Protocol: Document 06/21/24 09:01 NM (Rec: 06/21/24 09:45 NM [id number]) Knee Goniometric Range of Motion Knee Right Flexion Active (degrees) 150 Extension Active (degrees) 5 Comments HS length 110 in fernanda position 05/19/24: lacking 1 deg ext 06/18/24: lacking 5 deg of extension Left Flexion Active (degrees) 146 Extension Active (degrees) 0 Comments HS length 105 deg in fernanda position PT-OP-L Special Tests Start: 04/16/24 07:28 Freq: Status: Active Protocol: Document 04/16/24 08:15 NM (Rec: 04/16/24 09:03 NM [id number]) Special Tests Knee Special Tests Samantha Test Test Results + Comments clicking present but no increase in pain Apley's Compression Test Results - PT-OP-M Strength Start: 04/16/24 07:28 Freq: Status: Active Protocol: Document 06/21/24 09:01 NM (Rec: 06/21/24 09:45 NM [id number]) Hip Strength Hip Manual Muscle Testing Right Flexion (L2) 4+ Good+ Extension (S1) 4+ Good+ Abduction 4+ Good+ Adduction 4+ Good+ External Rotation 4+ Good+ Internal Rotation 4+ Good+ Comments 05/19/24: 4/5 for flex/abd 06/21/24: 4+/5 for all Left Flexion (L2) 4+ Good+ Extension (S1) 4+ Good+ Abduction 4+ Good+ Adduction 4+ Good+ External Rotation 4+ Good+ Internal Rotation 4+ Good+ Knee Strength Knee Manual Muscle Testing Right Flexion (S2) 4+ Good+ Extension (L3) 4+ Good+ Comments pain with knee extension at patellar tendon 05/19/24: 4/5, no pain 06/21/24: 4+/5, no pain Left Flexion (S2) 4+ Good+ Extension (L3) 4+ Good+ PT-OP-Q Treatments Start: 04/16/24 07:28 Freq: Status: Active Protocol: Document 06/21/24 09:01 NM (Rec: 06/21/24 09:45 NM [id number]) Therapeutic Exercises Standing Exercises single leg chop Side bilateral Resistance 2.2# ball Reps/Minutes 15 Comments pain free; good stability; single leg stance for running triple extension Standing Exercise Name reverse lunge > hip flexion w/ single leg heel raise Side bilateral Resistance AROM Equipment Used prn hand support on treadmill Reps/Minutes 10 ea Comments mild pain in R patellar if increased depth step up Standing Exercise Name with TKE Side right Resistance level 4 band dark blue Equipment Used 8 step, no hand support Reps/Minutes 2x10 Comments no pain TKE Standing Exercise Name with foot elevated on 8 step Side right Resistance level 4 dark blue band Equipment Used PT hold band Reps/Minutes 15 Comments reports mild quad tendon pain w/ TKE, reduced if less hard contract Other Exercises stretching Other Exercise Name 1. prone quad stretch, 2. Hamstring stretch Equipment Used strap; performed in supine and hooklying Reps/Minutes 60 ea Comments pain free Manual Therapy Treatment Consent Patient gave verbal consent for manual Yes treatment Soft Tissue Mobilization R knee Body Location HS, right knee peripatallar, lat and med into quad Mobilization Type Cross-Friction,Instrument Assisted,Rolling Intensity/Depth Moderate Body Position Hooklying Comments Rolling pin to quad, HS, calf. Has increased tightness at quad, tenderness (not pain) at HS and calf. Joint Mobilizations Patellar mobilization Joint inf, sup, med, lat Grade III Body Position Supine Reps/Duration 10 each direction R knee Joint tibiofemoral Direction PA Grade III Body Position Supine Reps/Duration 4x30 Comments 1. short lever joint line 2. long lever at tibia Lacking 5 deg of extension prior, lacking PT-OP-T Assessment and Plan Start: 04/16/24 07:28 Freq: Status: Active Protocol: Document 06/21/24 09:01 NM (Rec: 06/21/24 09:45 NM [id number]) Physical Therapy Assessment Goals Five Impairment pain with stairs Short Term Goal (STG) Pt will be able to perform at least 8 step ups and step downs with R knee pain <5/10 in order to demonstrate improved form and symptom management 05/19/25: 20 4 step ups without knee pain, 10 on 6 stair STG Duration 8 weeks Second Hand [employer] Machine Goal (LTG) Pt will report no limitation while performing standard flight of stairs or when ambulating on uneven surfaces in order to demonstrate improved symptom management 05/31/24: pt reports not having any trouble with stairs recently 06/21/24: no pain in R knee with 13 standard stairs (1 flight) LTG Duration 12 weeks MET Four Impairment pain at rest and with activity Short Term Goal (STG) Pt will report < 3/10 R knee pain at rest to demonstrate improved symptom management 05/19/24: reports 2/10 R knee pain at rest since PT 05/31/24: pt reports 1/10 in R knee pain at rest STG Duration 8 weeks MET Senior Living Goal (LTG) Pt will report < 3/10 R knee pain with activity to demonstrate improved symptom management 05/31/24: pt reports 3/10 R knee pain depending on the activity 06/17/24: ambulation 1/10, other exercises 1/10 if present; running 4-5/10 LTG Duration 12 weeks PROGRESSING, PARTIALLY MET Three Impairment pain with exercise Short Term Goal (STG) Pt will be provided education on safe exercise with HEP and will report compliance with HEP at least 3x/wk in order to maximize progression with PT. 05/19/24: following prescription on HEP sheet STG Duration 3 weeks MET [employer] Goal (LTG) Pt will report compliance with HEP or independent exercise at least 3x/wk in order to demonstrate improved carryover and maintenance with progression 06/21/24: compliant with HEP per exercise prescription LTG Duration 12 weeks MET Two Impairment strength R knee Short Term Goal (STG) Pt will improve R knee flexion /extension and R hip flexion/ abduction/extension strength to at least 4+/5 MMT in order to demonstrate increased strength for exercise and gait 05/19/24: 4/5 for all, pain free at knee 06/21/24: 4+/5 for all hip and knee, no pain STG Duration 8 weeks MET [employer] Goal (LTG) Pt will improve R knee flexion /extension and R hip flexion/ abduction/extension strength to at least 5/5 MMT in order to demonstrate increased strength for exercise and gait 06/21/24: 4+/5 for all hip and knee, no pain LTG Duration 12 weeks PROGRESSING One Impairment R knee extension AROM limited to 6 deg Short Term Goal (STG) Pt will improve R knee extension AROM to at least 3 deg in order to demonstrate improved TKE for gait 05/19/24: lacking 1 deg of R knee extension STG Duration 6 weeks MET [facility] Living Goal (LTG) Pt will improve R knee extension AROM to <3 deg in order to demonstrate improved TKE for gait 05/19/24: lacking 1 deg of R knee extension 06/21/24: lacking 3 deg of ext post manual (lacking 5 deg ext at start of session) LTG Duration 12 weeks PROGRESSING Progress Towards Goals Progress Towards Goals Progressing Toward Goals,Goals Met Assessment Summary Assessment Pt tolerated session well. Emphasis on TKE with step to improve knee extension. Lacking 3 deg ext at end of session. Continues to report mild knee pain with activities that involve deep knee flexion or with flexion to extension transition (e.g. triple ext); however, pain free in full knee flexion in supine when measuring. Progressed to 8 step up with TKE; TKE improves functionally with resistance. Able to do entire flight of stair without pain or compensation. Continues to be without pain for all other exercises. Good single leg stance with resisted chop, good quad control without signs of pain or instability. Physical Therapy Plan Frequency and Duration Frequency of Treatment 1-2x/wk Duration of treatment (weeks) 12 Plan of Care Start Date 04/16/24 Plan of Care End Date 07/09/24 Therapeutic Interventions Therapeutic Interventions Balance Training,Gait Training ,Home Exercise Program,Joint Mobilizations,Manual Therapy, Neuromuscular Re-education, Orthotic/Prosthetic Management ,Patient/Caregiver Education, Self-Care/Home Management, Sensory Integration,Soft Tissue Mobilization,Taping, Therapeutic Activities, Therapeutic Exercises Modalities Cold Pack/Ice Massage,Electric Stimulation,Hot Packs, Ultrasound Other Referrals/Consults Referrals/Consults Recommended Due to continued lack of ROM and pain with running, pt would benefit from referral to employee placement specialist for assessment before pt insurance changes when she is in upcoming months Next Visit Focus/Plan Next Note Type Treatment Note Next Visit Plan Condense HEP. Cont w/ SL squat , trial goblet squat, promote knee ext ROM tiffany with squats/ functional. Cont with lunge trial fwd and can add stepping if pain free. Retrial glute med SL squat w/ ball. Progress cable LAQ resistance. Cont proprioceptive bosu, rockerboard, etc. SL stability . Trial jogging on level surface Manual: STM and joint mobilizations as needed Plan of care: proprioception, BOSU squat (future)
--- NOTE | 2024-06-25 10:43 | PT.OTN ---
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 States that she did not have any bracing or crutches; no surgery, no other treatment. Her R knee is bothering her, since she stepped in a rabbit hole at time of injury. She states it began getting worse 5 years ago, states became more aware of it. She states that is when she got a job, she was standing more which caused pain. Pt is planning to get in August, wants to get checked out for her knee. Recently, reports no changes other than hurting more frequently with activity, which is what prompted her to seek help. Pt reports that her knee bothers her when she works out (squats, lunges), going up stairs, unable to run very much, difficulty with cutting or turning, hills, uneven grounds, jumping. Pt reports that her knee has catches 2x in past (not recent, states can move and it will unlock), within last 7 years her knee has given out at least 5 times, cracks but not painful. Pt has gone to chiropractor, has has manual treatment. She has not seen an orthopedist. States that knee brace (sock brace)- compression helps on worse days. Prior Treatments and Tests MRI March 2024: questionable partial meniscocapsular tearing at posterior horn of medial meniscus, intact cruciate and collateral ligaments, no acute trabecular bone injury or focal cartilage defect, small joint effusion Treatment Goals Patient/Caregiver Goals increase ROM, decrease discomfort levels Current Functional Impairments (Reported) Functional Limitations- Recreation/ work out (does not do a lot of Hobbies stretching)- every other day light gardening 3x/wk (1 year) one year ago 1x/day (at home- body wt) PT-OP-C Subjective Start: 04/16/24 07:28 Freq: Status: Active Protocol: Document 06/25/24 08:50 AB (Rec: 06/25/24 10:42 AB [id number]) OP-PT Subjective Patient Comments Patient Comments Patient reports pain with running persists, uneven ground is worse and sharp turns hurt. great toe.3 cm from wall with knee to wall prior to heel off floor PROM DF ( 9 deg) right LE SL HR with light UE support . Lacking 2 deg extension AROM right knee supine. PT-OP-E Functional Tests Start: 04/16/24 07:28 Freq: Status: Active Protocol: Document 04/16/24 08:15 NM (Rec: 04/16/24 09:03 NM [id number]) Functional Tests Squat Test Score 1 Comments pain immediately after in anterior PT-OP-F Manual Assessment Start: 04/16/24 07:28 Freq: Status: Active Protocol: Document 04/16/24 08:15 NM (Rec: 04/16/24 09:03 NM [id number]) Manual Assessments Soft Tissue Assessment Soft Tissue Mobility Assessment Increased HS tightness bilaterally, R>L; small effusion around R knee Joint Mobility Assessment Joint Mobility Assessment Lacking R knee extension in stance, limited patellar mobility PT-OP-G Mobility & Gait Start: 04/16/24 07:28 Freq: Status: Active Protocol: Document 04/16/24 08:15 NM (Rec: 04/16/24 09:03 NM [id number]) OP Gait Assessment Gait Gait Assistance Required: Independent Distance (Feet) 150 Assistive Devices Assistive Device None Gait Deviations General Gait Pattern Antalgic Factors Limiting Gait Function Factors Limiting Gait Function Decreased Activity Tolerance, Decreased Strength,Limited Range of Motion Comments Gait Comments Demos slight external rotation of R knee, slight decrease in foot clearance Stair Climbing Evaluation Technique/Endurance Stair Climbing Technique Step Over Step Number of Steps Climbed 4 Stair Climbing Set # Repetitions (reps) 1 Comments Stair Climbing Comments Demos valgus of R knee, pain with stepping down fro 4 and 6 steps. Mild pain with step up PT-OP-J Posture/Palpation/Skin Start: 04/16/24 07:28 Freq: Status: Active Protocol: Document 04/16/24 08:15 NM (Rec: 04/16/24 09:03 NM [id number]) Posture Evaluation Position Standing Head/C-Spine Posture Forward Head Pelvis Posture Anteriorly Tilted Weight Distribution Balanced Hip Posture (L) Externally Rotated,(R) Externally Rotated Knee Posture (L) Genu Valgus,(R) Genu Valgus,(R) Excess Flexion Patellar Posture (L) Superior,(R) Superior,(R) Medially Tilted Ankle/Foot Posture (L) Neutral,(R) Neutral Comments Posture Comments less knee ext R Palpation Assessment Location R knee Palpation Details no joint line tenderness tenderness only patellar tendon, inferior pole of patellar, peripatellar PT-OP-K Range of Motion Start: 04/16/24 07:28 Freq: Status: Active Protocol: Document 06/21/24 09:01 NM (Rec: 06/21/24 09:45 NM [id number]) Knee Goniometric Range of Motion Knee Right Flexion Active (degrees) 150 Extension Active (degrees) 5 Comments HS length 110 in fernanda position 05/19/24: lacking 1 deg ext 06/18/24: lacking 5 deg of extension Left Flexion Active (degrees) 146 Extension Active (degrees) 0 Comments HS length 105 deg in fernanda position PT-OP-L Special Tests Start: 04/16/24 07:28 Freq: Status: Active Protocol: Document 04/16/24 08:15 NM (Rec: 04/16/24 09:03 NM [id number]) Special Tests Knee Special Tests Samantha Test Test Results + Comments clicking present but no increase in pain Apley's Compression Test Results - PT-OP-M Strength Start: 04/16/24 07:28 Freq: Status: Active Protocol: Document 06/21/24 09:01 NM (Rec: 06/21/24 09:45 NM [id number]) Hip Strength Hip Manual Muscle Testing Right Flexion (L2) 4+ Good+ Extension (S1) 4+ Good+ Abduction 4+ Good+ Adduction 4+ Good+ External Rotation 4+ Good+ Internal Rotation 4+ Good+ Comments 05/19/24: 4/5 for flex/abd 06/21/24: 4+/5 for all Left Flexion (L2) 4+ Good+ Extension (S1) 4+ Good+ Abduction 4+ Good+ Adduction 4+ Good+ External Rotation 4+ Good+ Internal Rotation 4+ Good+ Knee Strength Knee Manual Muscle Testing Right Flexion (S2) 4+ Good+ Extension (L3) 4+ Good+ Comments pain with knee extension at patellar tendon 05/19/24: 4/5, no pain 06/21/24: 4+/5, no pain Left Flexion (S2) 4+ Good+ Extension (L3) 4+ Good+ PT-OP-Q Treatments Start: 04/16/24 07:28 Freq: Status: Active Protocol: Document 06/25/24 08:50 AB (Rec: 06/25/24 10:42 AB [id number]) Therapeutic Exercises Supine Exercises SLR Side right Reps/Minutes X10 X2 Comments post manual and HS stretch HS stretch Supine Exercise Name HEP with strap Side right Resistance from hookling Reps/Minutes 60 X3 Comments post manual Sitting Exercises AROM DF Sitting Exercise Name HEP Side bilateral Reps/Minutes X20 Comments post calf stretches, verbal cues Standing Exercises calf stretches at wall Standing Exercise Name gastroc and soleus Side right Equipment Used HEP Reps/Minutes 60 sec each Comments Verbal cues calf stretch on step Standing Exercise Name gastroc and soleus Side bilateral Reps/Minutes 60 sec each Comments verbal and visual cues single leg heel raise Standing Exercise Name 1. On step knees bent knees straight 2. on floor knee bent knee straight Side bilateral Resistance HEP for on step as able and knees bent Equipment Used 2 hand support for balance Reps/Minutes 1x10 each Comments full ROM single leg RDL Side bilateral Reps/Minutes X10 X2 each LE Comments post HS stretch squat Standing Exercise Name Goblet squat Resistance 10 lb Reps/Minutes X10 X 2 Comments focus on fully returning to upright Manual Therapy Treatment Consent Patient gave verbal consent for manual Yes treatment Soft Tissue Mobilization R knee Body Location HS Mobilization Type Cross-Friction,Rolling Intensity/Depth Moderate Body Position Hooklying Taping right knee Treatment Focus unload fat pad Type of Tape KT 2 fat pads inf pat, medial and lat to pat 70% strch prx direct, Skin Inspection WNL Comments Pt ed to remove in 3-5 days or immediately if skin irritation occurs. PT-OP-T Assessment and Plan Start: 04/16/24 07:28 Freq: Status: Active Protocol: Document 06/25/24 08:50 AB (Rec: 06/25/24 10:42 AB [id number]) Physical Therapy Assessment Goals Five Impairment pain with stairs Short Term Goal (STG) Pt will be able to perform at least 8 step ups and step downs with R knee pain <5/10 in order to demonstrate improved form and symptom management 05/19/25: 20 4 step ups without knee pain, 10 on 6 stair STG Duration 8 weeks [place] Goal (LTG) Pt will report no limitation while performing standard flight of stairs or when ambulating on uneven surfaces in order to demonstrate improved symptom management 05/31/24: pt reports not having any trouble with stairs recently 06/21/24: no pain in R knee with 13 standard stairs (1 flight) LTG Duration 12 weeks MET Four Impairment pain at rest and with activity Short Term Goal (STG) Pt will report < 3/10 R knee pain at rest to demonstrate improved symptom management 05/19/24: reports 2/10 R knee pain at rest since PT 05/31/24: pt reports 1/10 in R knee pain at rest STG Duration 8 weeks MET [place] Goal (LTG) Pt will report < 3/10 R knee pain with activity to demonstrate improved symptom management 05/31/24: pt reports 3/10 R knee pain depending on the activity 06/17/24: ambulation 1/10, other exercises 1/10 if present; running 4-5/10 LTG Duration 12 weeks PROGRESSING, PARTIALLY MET Three Impairment pain with exercise Short Term Goal (STG) Pt will be provided education on safe exercise with HEP and will report compliance with HEP at least 3x/wk in order to maximize progression with PT. 05/19/24: following prescription on HEP sheet STG Duration 3 weeks MET [place] Goal (LTG) Pt will report compliance with HEP or independent exercise at least 3x/wk in order to demonstrate improved carryover and maintenance with progression 06/21/24: compliant with HEP per exercise prescription LTG Duration 12 weeks MET Two Impairment strength R knee Short Term Goal (STG) Pt will improve R knee flexion /extension and R hip flexion/ abduction/extension strength to at least 4+/5 MMT in order to demonstrate increased strength for exercise and gait 05/19/24: 4/5 for all, pain free at knee 06/21/24: 4+/5 for all hip and knee, no pain STG Duration 8 weeks MET [place] Goal (LTG) Pt will improve R knee flexion /extension and R hip flexion/ abduction/extension strength to at least 5/5 MMT in order to demonstrate increased strength for exercise and gait 06/21/24: 4+/5 for all hip and knee, no pain LTG Duration 12 weeks PROGRESSING One Impairment R knee extension AROM limited to 6 deg Short Term Goal (STG) Pt will improve R knee extension AROM to at least 3 deg in order to demonstrate improved TKE for gait 05/19/24: lacking 1 deg of R knee extension STG Duration 6 weeks MET [place] Goal (LTG) Pt will improve R knee extension AROM to <3 deg in order to demonstrate improved TKE for gait 05/19/24: lacking 1 deg of R knee extension 06/21/24: lacking 3 deg of ext post manual (lacking 5 deg ext at start of session) LTG Duration 12 weeks PROGRESSING Assessment Summary Assessment Mya rates pain 0/10 right knee end of session, able to run short distance in clinic with turns reporting no increased pain. right knee 0 deg AROM end of session, of note rests at lacking 3 deg ext. Physical Therapy Plan Frequency and Duration Frequency of Treatment 1-2x/wk Duration of treatment (weeks) 12 Plan of Care Start Date 04/16/24 Plan of Care End Date 07/09/24 Next Visit Focus/Plan Next Note Type Treatment Note Next Visit Plan Condense HEP. Cont w/ SL squat , continue goblet squat increase weight as able, focus on full knee extension when reaching upright, promote knee ext ROM tiffany with squats/ functional. Cont with lunge trial fwd and can add stepping if pain free. Retrial glute med SL squat w/ ball. Progress cable LAQ resistance. Cont proprioceptive bosu, rockerboard, etc. SL stability . Trial jogging on level surface Manual: STM and joint mobilizations as needed Plan of care: proprioception, BOSU squat (future)
--- NOTE | 2024-06-28 10:38 | PT.OTN ---
Current Diagnoses Pain in unspecified knee (06/28/24) Stiffness of right knee, not elsewhere classified (06/28/24) Other lack of coordination (06/28/24) Weakness (06/28/24) Physical Therapy Treatment Note PT-OP-A Visit Information Start: 04/16/24 07:28 Freq: Status: Active Protocol: Document 06/28/24 08:55 AB (Rec: 06/28/24 09:47 AB [id number]) Out-Patient Physical Therapy Visit Information Visit Information Visit Type Treatment Note Visit Note 11/01 post PN Access Code [id number] Visit Start Time 09:01 Visit Stop Time 09:45 Visit Number 18 Number of FLATWORK WASHER Visits 2 Evaluation Information Evaluation Date 04/16/24 Precautions Precautions hx of osteochondritis dessicans of R knee PT-OP-B Current Condition Start: 04/16/24 07:28 Freq: Status: Active Protocol: Document 04/16/24 08:15 NM (Rec: 04/16/24 09:03 NM [id number]) Current Condition History of Current Condition Onset Date chronic, 10 years ago Current Complaints pain, limited ROM History of Current Condition Pt reports that she injured her R knee with hyperextension at 10 years ago, states dx with OCD. States that she did not have any bracing or crutches; no surgery, no other treatment. Her R knee is bothering her, since she stepped in a rabbit hole at time of injury. She states it began getting worse 5 years ago, states became more aware of it. She states that is when she got a job, she was standing more which caused pain. Pt is planning to get in August, wants to get checked out for her knee. Recently, reports no changes other than hurting more frequently with activity, which is what prompted her to seek help. Pt reports that her knee bothers her when she works out (squats, lunges), going up stairs, unable to run very much, difficulty with cutting or turning, hills, uneven grounds, jumping. Pt reports that her knee has catches 2x in past (not recent, states can move and it will unlock), within last 7 years her knee has given out at least 5 times, cracks but not painful. Pt has gone to chiropractor, has has manual treatment. She has not seen an orthopedist. States that knee brace (sock brace)- compression helps on worse days. Prior Treatments and Tests MRI March 2024: questionable partial meniscocapsular tearing at posterior horn of medial meniscus, intact cruciate and collateral ligaments, no acute trabecular bone injury or focal cartilage defect, small joint effusion Treatment Goals Patient/Caregiver Goals increase ROM, decrease discomfort levels Current Functional Impairments (Reported) Functional Limitations- Recreation/ work out (does not do a lot of Hobbies stretching)- every other day light gardening 3x/wk (1 year) one year ago 1x/day (at home- body wt) PT-OP-C Subjective Start: 04/16/24 07:28 Freq: Status: Active Protocol: Document 06/28/24 08:55 AB (Rec: 06/28/24 09:47 AB [id number]) OP-PT Subjective Patient Comments Patient Comments Patient reports the knee feels looser. Patient reports she has not had any pain since previous session. lacking 2 deg extension AROM left knee end of session. PT-OP-E Functional Tests Start: 04/16/24 07:28 Freq: Status: Active Protocol: Document 04/16/24 08:15 NM (Rec: 04/16/24 09:03 NM [id number]) Functional Tests Squat Test Score 1 Comments pain immediately after in anterior PT-OP-F Manual Assessment Start: 04/16/24 07:28 Freq: Status: Active Protocol: Document 04/16/24 08:15 NM (Rec: 04/16/24 09:03 NM [id number]) Manual Assessments Soft Tissue Assessment Soft Tissue Mobility Assessment Increased HS tightness bilaterally, R>L; small effusion around R knee Joint Mobility Assessment Joint Mobility Assessment Lacking R knee extension in stance, limited patellar mobility PT-OP-G Mobility & Gait Start: 04/16/24 07:28 Freq: Status: Active Protocol: Document 04/16/24 08:15 NM (Rec: 04/16/24 09:03 NM [id number]) OP Gait Assessment Gait Gait Assistance Required: Independent Distance (Feet) 150 Assistive Devices Assistive Device None Gait Deviations General Gait Pattern Antalgic Factors Limiting Gait Function Factors Limiting Gait Function Decreased Activity Tolerance, Decreased Strength,Limited Range of Motion Comments Gait Comments Demos slight external rotation of R knee, slight decrease in foot clearance Stair Climbing Evaluation Technique/Endurance Stair Climbing Technique Step Over Step Number of Steps Climbed 4 Stair Climbing Set # Repetitions (reps) 1 Comments Stair Climbing Comments Demos valgus of R knee, pain with stepping down fro 4 and 6 steps. Mild pain with step up PT-OP-J Posture/Palpation/Skin Start: 04/16/24 07:28 Freq: Status: Active Protocol: Document 04/16/24 08:15 NM (Rec: 04/16/24 09:03 NM [id number]) Posture Evaluation Position Standing Head/C-Spine Posture Forward Head Pelvis Posture Anteriorly Tilted Weight Distribution Balanced Hip Posture (L) Externally Rotated,(R) Externally Rotated Knee Posture (L) Genu Valgus,(R) Genu Valgus,(R) Excess Flexion Patellar Posture (L) Superior,(R) Superior,(R) Medially Tilted Ankle/Foot Posture (L) Neutral,(R) Neutral Comments Posture Comments less knee ext R Palpation Assessment Location R knee Palpation Details no joint line tenderness tenderness only patellar tendon, inferior pole of patellar, peripatellar PT-OP-K Range of Motion Start: 04/16/24 07:28 Freq: Status: Active Protocol: Document 06/21/24 09:01 NM (Rec: 06/21/24 09:45 NM [id number]) Knee Goniometric Range of Motion Knee Right Flexion Active (degrees) 150 Extension Active (degrees) 5 Comments HS length 110 in fernanda position 05/19/24: lacking 1 deg ext 06/18/24: lacking 5 deg of extension Left Flexion Active (degrees) 146 Extension Active (degrees) 0 Comments HS length 105 deg in fernanda position PT-OP-L Special Tests Start: 04/16/24 07:28 Freq: Status: Active Protocol: Document 04/16/24 08:15 NM (Rec: 04/16/24 09:03 NM [id number]) Special Tests Knee Special Tests Samantha Test Test Results + Comments clicking present but no increase in pain Apley's Compression Test Results - PT-OP-M Strength Start: 04/16/24 07:28 Freq: Status: Active Protocol: Document 06/21/24 09:01 NM (Rec: 06/21/24 09:45 NM [id number]) Hip Strength Hip Manual Muscle Testing Right Flexion (L2) 4+ Good+ Extension (S1) 4+ Good+ Abduction 4+ Good+ Adduction 4+ Good+ External Rotation 4+ Good+ Internal Rotation 4+ Good+ Comments 05/19/24: 4/5 for flex/abd 06/21/24: 4+/5 for all Left Flexion (L2) 4+ Good+ Extension (S1) 4+ Good+ Abduction 4+ Good+ Adduction 4+ Good+ External Rotation 4+ Good+ Internal Rotation 4+ Good+ Knee Strength Knee Manual Muscle Testing Right Flexion (S2) 4+ Good+ Extension (L3) 4+ Good+ Comments pain with knee extension at patellar tendon 05/19/24: 4/5, no pain 06/21/24: 4+/5, no pain Left Flexion (S2) 4+ Good+ Extension (L3) 4+ Good+ PT-OP-Q Treatments Start: 04/16/24 07:28 Freq: Status: Active Protocol: Document 06/28/24 08:55 AB (Rec: 06/28/24 09:47 AB [id number]) Gym Equipment Shuttle Recovery plyometric Details gentle B jump; cued land midfoot for softer impact Resistance 12# Shuttle Recovery Platform Stable Reps/Time bilateral X 10 then single leg X 10 each LE Shuttle Balance red Details SLS Reps/Duration 2-3 min Comments with supervision, mini squat in SLS right LE and SLS with head movement and visual scanning Therapeutic Exercises Supine Exercises SLR Side right Reps/Minutes x15 Comments post manual and HS stretch HS stretch Supine Exercise Name HEP with strap Side right Resistance from hookling Reps/Minutes 60 X3 Comments post manual Standing Exercises calf stretches at wall Standing Exercise Name gastroc and soleus Side right Equipment Used HEP Reps/Minutes 60 sec each X2 Comments Verbal cues lateral touch down Standing Exercise Name 6 Side bilateral Equipment Used 1 hand support, hand on hip for self tactile cue Reps/Minutes 10 Comments focus on full knee extension when reaching upright squat Standing Exercise Name Goblet squat with level 5 band above knees Resistance 10 lb each UE and level band to HEP Reps/Minutes X10 X 2 Comments focus on fully returning to upright glute medius isometric Standing Exercise Name HEP Side bilateral Reps/Minutes 60 Comments prior to BOSU squat Manual Therapy Treatment Consent Patient gave verbal consent for manual Yes treatment Soft Tissue Mobilization R knee Body Location HS Mobilization Type Cross-Friction,Rolling Intensity/Depth Moderate Body Position Hooklying Neuro Re-Education Treatment Balance Activities BOSU Details step up with october fwd, round side Comments Verabal and visual cues PT-OP-T Assessment and Plan Start: 04/16/24 07:28 Freq: Status: Active Protocol: Document 06/28/24 08:55 AB (Rec: 06/28/24 09:47 AB [id number]) Physical Therapy Assessment Goals Five Impairment pain with stairs Short Term Goal (STG) Pt will be able to perform at least 8 step ups and step downs with R knee pain <5/10 in order to demonstrate improved form and symptom management 05/19/25: 20 4 step ups without knee pain, 10 on 6 stair STG Duration 8 weeks Director Of [employer] Goal (LTG) Pt will report no limitation while performing standard flight of stairs or when ambulating on uneven surfaces in order to demonstrate improved symptom management 05/31/24: pt reports not having any trouble with stairs recently 06/21/24: no pain in R knee with 13 standard stairs (1 flight) LTG Duration 12 weeks MET Four Impairment pain at rest and with activity Short Term Goal (STG) Pt will report < 3/10 R knee pain at rest to demonstrate improved symptom management 05/19/24: reports 2/10 R knee pain at rest since PT 05/31/24: pt reports 1/10 in R knee pain at rest STG Duration 8 weeks MET Fpc Goal (LTG) Pt will report < 3/10 R knee pain with activity to demonstrate improved symptom management 05/31/24: pt reports 3/10 R knee pain depending on the activity 06/17/24: ambulation 1/10, other exercises 1/10 if present; running 4-5/10 LTG Duration 12 weeks PROGRESSING, PARTIALLY MET Three Impairment pain with exercise Short Term Goal (STG) Pt will be provided education on safe exercise with HEP and will report compliance with HEP at least 3x/wk in order to maximize progression with PT. 05/19/24: following prescription on HEP sheet STG Duration 3 weeks MET Fpc Goal (LTG) Pt will report compliance with HEP or independent exercise at least 3x/wk in order to demonstrate improved carryover and maintenance with progression 06/21/24: compliant with HEP per exercise prescription LTG Duration 12 weeks MET Two Impairment strength R knee Short Term Goal (STG) Pt will improve R knee flexion /extension and R hip flexion/ abduction/extension strength to at least 4+/5 MMT in order to demonstrate increased strength for exercise and gait 05/19/24: 4/5 for all, pain free at knee 06/21/24: 4+/5 for all hip and knee, no pain STG Duration 8 weeks MET Fpc Goal (LTG) Pt will improve R knee flexion /extension and R hip flexion/ abduction/extension strength to at least 5/5 MMT in order to demonstrate increased strength for exercise and gait 06/21/24: 4+/5 for all hip and knee, no pain LTG Duration 12 weeks PROGRESSING One Impairment R knee extension AROM limited to 6 deg Short Term Goal (STG) Pt will improve R knee extension AROM to at least 3 deg in order to demonstrate improved TKE for gait 05/19/24: lacking 1 deg of R knee extension STG Duration 6 weeks MET [employer] Of [employer] Goal (LTG) Pt will improve R knee extension AROM to <3 deg in order to demonstrate improved TKE for gait 05/19/24: lacking 1 deg of R knee extension 06/21/24: lacking 3 deg of ext post manual (lacking 5 deg ext at start of session) LTG Duration 12 weeks PROGRESSING Assessment Summary Assessment Mya reports having no pain with shorts light runs in clinic, pre, during and post session. Physical Therapy Plan Frequency and Duration Frequency of Treatment 1-2x/wk Duration of treatment (weeks) 12 Plan of Care Start Date 04/16/24 Plan of Care End Date 07/09/24 Next Visit Focus/Plan Next Note Type Treatment Note Next Visit Plan Condense HEP. Cont w/ SL squat , focus on full knee extension when reaching upright, promote knee ext ROM tiffany with squats/functional. Cont with lunge trial fwd and can add stepping if pain free. Retrial glute med SL squat w/ ball. Progress cable LAQ resistance. Cont proprioceptive bosu, rockerboard, etc. SL stability . Trial jogging on level surface Manual: STM and joint mobilizations as needed Plan of care: proprioception, BOSU squat (future)
--- NOTE | 2024-07-02 10:18 | PT.OTN ---
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 States that she did not have any bracing or crutches; no surgery, no other treatment. Her R knee is bothering her, since she stepped in a rabbit hole at time of injury. She states it began getting worse 5 years ago, states became more aware of it. She states that is when she got a job, she was standing more which caused pain. Pt is planning to get in August, wants to get checked out for her knee. Recently, reports no changes other than hurting more frequently with activity, which is what prompted her to seek help. Pt reports that her knee bothers her when she works out (squats, lunges), going up stairs, unable to run very much, difficulty with cutting or turning, hills, uneven grounds, jumping. Pt reports that her knee has catches 2x in past (not recent, states can move and it will unlock), within last 7 years her knee has given out at least 5 times, cracks but not painful. Pt has gone to chiropractor, has has manual treatment. She has not seen an orthopedist. States that knee brace (sock brace)- compression helps on worse days. Prior Treatments and Tests MRI March 2024: questionable partial meniscocapsular tearing at posterior horn of medial meniscus, intact cruciate and collateral ligaments, no acute trabecular bone injury or focal cartilage defect, small joint effusion Treatment Goals Patient/Caregiver Goals increase ROM, decrease discomfort levels Current Functional Impairments (Reported) Functional Limitations- Recreation/ work out (does not do a lot of Hobbies stretching)- every other day light gardening 3x/wk (1 year) one year ago 1x/day (at home- body wt) PT-OP-C Subjective Start: 04/16/24 07:28 Freq: Status: Active Protocol: Document 07/02/24 08:04 AB (Rec: 07/02/24 10:17 AB [id number]) OP-PT Subjective Patient Comments Patient Comments Mya reports increased knee pain suprapatellar area Th and today, attributes to more difficult HEP day on Friday . Lacking 2 deg extension AROM right knee PT-OP-E Functional Tests Start: 04/16/24 07:28 Freq: Status: Active Protocol: Document 04/16/24 08:15 NM (Rec: 04/16/24 09:03 NM [id number]) Functional Tests Squat Test Score 1 Comments pain immediately after in anterior PT-OP-F Manual Assessment Start: 04/16/24 07:28 Freq: Status: Active Protocol: Document 04/16/24 08:15 NM (Rec: 04/16/24 09:03 NM [id number]) Manual Assessments Soft Tissue Assessment Soft Tissue Mobility Assessment Increased HS tightness bilaterally, R>L; small effusion around R knee Joint Mobility Assessment Joint Mobility Assessment Lacking R knee extension in stance, limited patellar mobility PT-OP-G Mobility & Gait Start: 04/16/24 07:28 Freq: Status: Active Protocol: Document 04/16/24 08:15 NM (Rec: 04/16/24 09:03 NM [id number]) OP Gait Assessment Gait Gait Assistance Required: Independent Distance (Feet) 150 Assistive Devices Assistive Device None Gait Deviations General Gait Pattern Antalgic Factors Limiting Gait Function Factors Limiting Gait Function Decreased Activity Tolerance, Decreased Strength,Limited Range of Motion Comments Gait Comments Demos slight external rotation of R knee, slight decrease in foot clearance Stair Climbing Evaluation Technique/Endurance Stair Climbing Technique Step Over Step Number of Steps Climbed 4 Stair Climbing Set # Repetitions (reps) 1 Comments Stair Climbing Comments Demos valgus of R knee, pain with stepping down fro 4 and 6 steps. Mild pain with step up PT-OP-J Posture/Palpation/Skin Start: 04/16/24 07:28 Freq: Status: Active Protocol: Document 04/16/24 08:15 NM (Rec: 04/16/24 09:03 NM [id number]) Posture Evaluation Position Standing Head/C-Spine Posture Forward Head Pelvis Posture Anteriorly Tilted Weight Distribution Balanced Hip Posture (L) Externally Rotated,(R) Externally Rotated Knee Posture (L) Genu Valgus,(R) Genu Valgus,(R) Excess Flexion Patellar Posture (L) Superior,(R) Superior,(R) Medially Tilted Ankle/Foot Posture (L) Neutral,(R) Neutral Comments Posture Comments less knee ext R Palpation Assessment Location R knee Palpation Details no joint line tenderness tenderness only patellar tendon, inferior pole of patellar, peripatellar PT-OP-K Range of Motion Start: 04/16/24 07:28 Freq: Status: Active Protocol: Document 06/21/24 09:01 NM (Rec: 06/21/24 09:45 NM [id number]) Knee Goniometric Range of Motion Knee Right Flexion Active (degrees) 150 Extension Active (degrees) 5 Comments HS length 110 in fernanda position 05/19/24: lacking 1 deg ext 06/18/24: lacking 5 deg of extension Left Flexion Active (degrees) 146 Extension Active (degrees) 0 Comments HS length 105 deg in fernanda position PT-OP-L Special Tests Start: 04/16/24 07:28 Freq: Status: Active Protocol: Document 04/16/24 08:15 NM (Rec: 04/16/24 09:03 NM [id number]) Special Tests Knee Special Tests Samantha Test Test Results + Comments clicking present but no increase in pain Apley's Compression Test Results - PT-OP-M Strength Start: 04/16/24 07:28 Freq: Status: Active Protocol: Document 06/21/24 09:01 NM (Rec: 06/21/24 09:45 NM [id number]) Hip Strength Hip Manual Muscle Testing Right Flexion (L2) 4+ Good+ Extension (S1) 4+ Good+ Abduction 4+ Good+ Adduction 4+ Good+ External Rotation 4+ Good+ Internal Rotation 4+ Good+ Comments 05/19/24: 4/5 for flex/abd 06/21/24: 4+/5 for all Left Flexion (L2) 4+ Good+ Extension (S1) 4+ Good+ Abduction 4+ Good+ Adduction 4+ Good+ External Rotation 4+ Good+ Internal Rotation 4+ Good+ Knee Strength Knee Manual Muscle Testing Right Flexion (S2) 4+ Good+ Extension (L3) 4+ Good+ Comments pain with knee extension at patellar tendon 05/19/24: 4/5, no pain 06/21/24: 4+/5, no pain Left Flexion (S2) 4+ Good+ Extension (L3) 4+ Good+ PT-OP-Q Treatments Start: 04/16/24 07:28 Freq: Status: Active Protocol: Document 07/02/24 08:04 AB (Rec: 07/02/24 10:17 AB [id number]) Gym Equipment Shuttle Recovery unilateral squat Resistance 50# (1 navy) Reps/Time X15 X2 Therapeutic Exercises Supine Exercises hip and knee extension with band Side right Resistance level 5 Reps/Minutes X15 Comments verbal and tactile cues SLR Side right Reps/Minutes x15 Comments post manual and HS stretch HS stretch Supine Exercise Name HEP with strap Side right Resistance from hookling Reps/Minutes 60 X3 Comments post manual Standing Exercises calf stretch on step Standing Exercise Name gastroc and soleus Side bilateral Reps/Minutes 60 sec eachx2 Comments verbal and visual cues single leg squat with band Standing Exercise Name HEP review Side bilateral Resistance level one light blue band at thighs Equipment Used holding back of chair right side Reps/Minutes 15 ea Comments facing mirror, cued hip hinge; demos knee valgus R, hip drop 3 way with slider Standing Exercise Name performed im mirror Side right Equipment Used without slider Reps/Minutes X10 each side Comments verbal and visual cues single leg RDL Side bilateral Reps/Minutes X10 X2 each LE Comments post HS stretch Manual Therapy Treatment Consent Patient gave verbal consent for manual Yes treatment Soft Tissue Mobilization R knee Body Location HS Mobilization Type Cross-Friction,Rolling Intensity/Depth Moderate Body Position Hooklying Joint Mobilizations Patellar mobilization Joint inf, sup, med, lat Grade III Body Position Supine Reps/Duration 10 each direction PT-OP-T Assessment and Plan Start: 04/16/24 07:28 Freq: Status: Active Protocol: Document 07/02/24 08:04 AB (Rec: 07/02/24 10:17 AB [id number]) Physical Therapy Assessment Goals Five Impairment pain with stairs Short Term Goal (STG) Pt will be able to perform at least 8 step ups and step downs with R knee pain <5/10 in order to demonstrate improved form and symptom management 05/19/25: 20 4 step ups without knee pain, 10 on 6 stair STG Duration 8 weeks Manager Sustainability Goal (LTG) Pt will report no limitation while performing standard flight of stairs or when ambulating on uneven surfaces in order to demonstrate improved symptom management 05/31/24: pt reports not having any trouble with stairs recently 06/21/24: no pain in R knee with 13 standard stairs (1 flight) LTG Duration 12 weeks MET Four Impairment pain at rest and with activity Short Term Goal (STG) Pt will report < 3/10 R knee pain at rest to demonstrate improved symptom management 05/19/24: reports 2/10 R knee pain at rest since PT 05/31/24: pt reports 1/10 in R knee pain at rest STG Duration 8 weeks MET Manager Sustainability Goal (LTG) Pt will report < 3/10 R knee pain with activity to demonstrate improved symptom management 05/31/24: pt reports 3/10 R knee pain depending on the activity 06/17/24: ambulation 1/10, other exercises 1/10 if present; running 4-5/10 LTG Duration 12 weeks PROGRESSING, PARTIALLY MET Three Impairment pain with exercise Short Term Goal (STG) Pt will be provided education on safe exercise with HEP and will report compliance with HEP at least 3x/wk in order to maximize progression with PT. 05/19/24: following prescription on HEP sheet STG Duration 3 weeks MET Longterm Goal (LTG) Pt will report compliance with HEP or independent exercise at least 3x/wk in order to demonstrate improved carryover and maintenance with progression 06/21/24: compliant with HEP per exercise prescription LTG Duration 12 weeks MET Two Impairment strength R knee Short Term Goal (STG) Pt will improve R knee flexion /extension and R hip flexion/ abduction/extension strength to at least 4+/5 MMT in order to demonstrate increased strength for exercise and gait 05/19/24: 4/5 for all, pain free at knee 06/21/24: 4+/5 for all hip and knee, no pain STG Duration 8 weeks MET Manager Sustainability Goal (LTG) Pt will improve R knee flexion /extension and R hip flexion/ abduction/extension strength to at least 5/5 MMT in order to demonstrate increased strength for exercise and gait 06/21/24: 4+/5 for all hip and knee, no pain LTG Duration 12 weeks PROGRESSING One Impairment R knee extension AROM limited to 6 deg Short Term Goal (STG) Pt will improve R knee extension AROM to at least 3 deg in order to demonstrate improved TKE for gait 05/19/24: lacking 1 deg of R knee extension STG Duration 6 weeks MET Manager Sustainability Goal (LTG) Pt will improve R knee extension AROM to <3 deg in order to demonstrate improved TKE for gait 05/19/24: lacking 1 deg of R knee extension 06/21/24: lacking 3 deg of ext post manual (lacking 5 deg ext at start of session) LTG Duration 12 weeks PROGRESSING Assessment Summary Assessment Patient ed to perform SLS and 3 way on opposite days and decrease depth of squats due to increased valgus at lower depths and increased fatigue on second of these exercises this session. Mya reports no pain with short run in clinic Physical Therapy Plan Frequency and Duration Frequency of Treatment 1-2x/wk Duration of treatment (weeks) 12 Plan of Care Start Date 04/16/24 Plan of Care End Date 07/09/24 Next Visit Focus/Plan Next Note Type Treatment Note Next Visit Plan Condense HEP. Cont w/ SL squat , focus on full knee extension when reaching upright, promote knee ext ROM tiffany with squats/functional. Cont with lunge trial fwd and can add stepping if pain free. Retrial glute med SL squat w/ ball. Progress cable LAQ resistance. Cont proprioceptive bosu, rockerboard, etc. SL stability . Trial jogging on level surface Manual: STM and joint mobilizations as needed Plan of care: proprioception, BOSU squat (future)
--- NOTE | 2024-07-06 10:30 | PT.OTN ---
Current Diagnoses Pain in unspecified knee (07/06/24) Stiffness of right knee, not elsewhere classified (07/06/24) Other lack of coordination (07/06/24) Weakness (07/06/24) Physical Therapy Treatment Note PT-OP-A Visit Information Start: 04/16/24 07:28 Freq: Status: Active Protocol: Document 07/06/24 09:48 NM (Rec: 07/06/24 10:29 NM [id number]) Out-Patient Physical Therapy Visit Information Visit Information Visit Type Treatment Note Visit Note 01/01 post PN Access Code [id number] Visit Start Time 09:48 Visit Stop Time 10:28 Visit Number 20 Evaluation Information Evaluation Date 04/16/24 Precautions Precautions hx of osteochondritis dessicans of R knee PT-OP-B Current Condition Start: 04/16/24 07:28 Freq: Status: Active Protocol: Document 04/16/24 08:15 NM (Rec: 04/16/24 09:03 NM [id number]) Current Condition History of Current Condition Onset Date chronic, 10 years ago Current Complaints pain, limited ROM History of Current Condition Pt reports that she injured her R knee with hyperextension at 10 years ago, states dx with OCD. States that she did not have any bracing or crutches; no surgery, no other treatment. Her R knee is bothering her, since she stepped in a rabbit hole at time of injury. She states it began getting worse 5 years ago, states became more aware of it. She states that is when she got a job, she was standing more which caused pain. Pt is planning to get in August, wants to get checked out for her knee. Recently, reports no changes other than hurting more frequently with activity, which is what prompted her to seek help. Pt reports that her knee bothers her when she works out (squats, lunges), going up stairs, unable to run very much, difficulty with cutting or turning, hills, uneven grounds, jumping. Pt reports that her knee has catches 2x in past (not recent, states can move and it will unlock), within last 7 years her knee has given out at least 5 times, cracks but not painful. Pt has gone to chiropractor, has has manual treatment. She has not seen an orthopedist. States that knee brace (sock brace)- compression helps on worse days. Prior Treatments and Tests MRI March 2024: questionable partial meniscocapsular tearing at posterior horn of medial meniscus, intact cruciate and collateral ligaments, no acute trabecular bone injury or focal cartilage defect, small joint effusion Treatment Goals Patient/Caregiver Goals increase ROM, decrease discomfort levels Current Functional Impairments (Reported) Functional Limitations- Recreation/ work out (does not do a lot of Hobbies stretching)- every other day light gardening 3x/wk (1 year) one year ago 1x/day (at home- body wt) PT-OP-C Subjective Start: 04/16/24 07:28 Freq: Status: Active Protocol: Document 07/06/24 09:48 NM (Rec: 07/06/24 10:29 NM [id number]) OP-PT Subjective Patient Comments Patient Comments Pt reports that she had periodic sharp pain yesterday when she twisted her knee. She spoke with PCP, who thinks she can continue with PT on own or with PT in person. Pt reports pretty satisfied with PT so far, reports that she feels likes she can do anything. She reports that she hasn't had any pain with jogging or activity. PT and pt discussed discharge at next session, both in agreement. 0/ 10 R knee pain PT-OP-E Functional Tests Start: 04/16/24 07:28 Freq: Status: Active Protocol: Document 04/16/24 08:15 NM (Rec: 04/16/24 09:03 NM [id number]) Functional Tests Squat Test Score 1 Comments pain immediately after in anterior PT-OP-F Manual Assessment Start: 04/16/24 07:28 Freq: Status: Active Protocol: Document 04/16/24 08:15 NM (Rec: 04/16/24 09:03 NM [id number]) Manual Assessments Soft Tissue Assessment Soft Tissue Mobility Assessment Increased HS tightness bilaterally, R>L; small effusion around R knee Joint Mobility Assessment Joint Mobility Assessment Lacking R knee extension in stance, limited patellar mobility PT-OP-G Mobility & Gait Start: 04/16/24 07:28 Freq: Status: Active Protocol: Document 04/16/24 08:15 NM (Rec: 04/16/24 09:03 NM [id number]) OP Gait Assessment Gait Gait Assistance Required: Independent Distance (Feet) 150 Assistive Devices Assistive Device None Gait Deviations General Gait Pattern Antalgic Factors Limiting Gait Function Factors Limiting Gait Function Decreased Activity Tolerance, Decreased Strength,Limited Range of Motion Comments Gait Comments Demos slight external rotation of R knee, slight decrease in foot clearance Stair Climbing Evaluation Technique/Endurance Stair Climbing Technique Step Over Step Number of Steps Climbed 4 Stair Climbing Set # Repetitions (reps) 1 Comments Stair Climbing Comments Demos valgus of R knee, pain with stepping down fro 4 and 6 steps. Mild pain with step up PT-OP-J Posture/Palpation/Skin Start: 04/16/24 07:28 Freq: Status: Active Protocol: Document 04/16/24 08:15 NM (Rec: 04/16/24 09:03 NM [id number]) Posture Evaluation Position Standing Head/C-Spine Posture Forward Head Pelvis Posture Anteriorly Tilted Weight Distribution Balanced Hip Posture (L) Externally Rotated,(R) Externally Rotated Knee Posture (L) Genu Valgus,(R) Genu Valgus,(R) Excess Flexion Patellar Posture (L) Superior,(R) Superior,(R) Medially Tilted Ankle/Foot Posture (L) Neutral,(R) Neutral Comments Posture Comments less knee ext R Palpation Assessment Location R knee Palpation Details no joint line tenderness tenderness only patellar tendon, inferior pole of patellar, peripatellar PT-OP-K Range of Motion Start: 04/16/24 07:28 Freq: Status: Active Protocol: Document 06/21/24 09:01 NM (Rec: 06/21/24 09:45 NM [id number]) Knee Goniometric Range of Motion Knee Right Flexion Active (degrees) 150 Extension Active (degrees) 5 Comments HS length 110 in fernanda position 05/19/24: lacking 1 deg ext 06/18/24: lacking 5 deg of extension Left Flexion Active (degrees) 146 Extension Active (degrees) 0 Comments HS length 105 deg in fernanda position PT-OP-L Special Tests Start: 04/16/24 07:28 Freq: Status: Active Protocol: Document 04/16/24 08:15 NM (Rec: 04/16/24 09:03 NM [id number]) Special Tests Knee Special Tests Samantha Test Test Results + Comments clicking present but no increase in pain Apley's Compression Test Results - PT-OP-M Strength Start: 04/16/24 07:28 Freq: Status: Active Protocol: Document 06/21/24 09:01 NM (Rec: 06/21/24 09:45 NM [id number]) Hip Strength Hip Manual Muscle Testing Right Flexion (L2) 4+ Good+ Extension (S1) 4+ Good+ Abduction 4+ Good+ Adduction 4+ Good+ External Rotation 4+ Good+ Internal Rotation 4+ Good+ Comments 05/19/24: 4/5 for flex/abd 06/21/24: 4+/5 for all Left Flexion (L2) 4+ Good+ Extension (S1) 4+ Good+ Abduction 4+ Good+ Adduction 4+ Good+ External Rotation 4+ Good+ Internal Rotation 4+ Good+ Knee Strength Knee Manual Muscle Testing Right Flexion (S2) 4+ Good+ Extension (L3) 4+ Good+ Comments pain with knee extension at patellar tendon 05/19/24: 4/5, no pain 06/21/24: 4+/5, no pain Left Flexion (S2) 4+ Good+ Extension (L3) 4+ Good+ PT-OP-Q Treatments Start: 04/16/24 07:28 Freq: Status: Active Protocol: Document 07/06/24 09:48 NM (Rec: 07/06/24 10:29 NM [id number]) Therapeutic Exercises Supine Exercises SLR Side right Reps/Minutes 20 Comments post manual; demos slight knee hyperext today Standing Exercises deadlift Standing Exercise Name straight leg for HS lengthening Side bilateral Resistance 7# db ea hand Reps/Minutes 2x10 Comments cued for hinge; sliding wt down legs standing clam Standing Exercise Name single leg stance with slight squat Side bilateral Resistance level 2 band at thighs Equipment Used foot on wall Reps/Minutes 15 ea single leg chop Standing Exercise Name high-low Side bilateral Resistance kickball with toss into trampoline Reps/Minutes 15 ea Comments pain free; good stability; single leg stance for running; no pain w/ twist single leg squat with band Standing Exercise Name 1. from chair, 2. w/ hand support on chair Side bilateral Equipment Used 2. hand support on chair opp side Reps/Minutes 1. 8 ea w/ lvl 2 band at thighs, 2. Comments improved level pelvis, less knee valg if not dec depth Therapeutic Activity Therapeutic Activity ladders Name agility, impact Reps/Minutes 6 min Comments 1. one step ea hole 2. B hops ea hole 3. 2 feet ea hole 4. lateral 2 feet ea hole 5. lateral w/ fwd advancement (cowboy) Pain free for all. Decreased speed d/t coordination. No pain with impact or discomfort in knees jogging Name 4 min Reps/Minutes [address] Comments cueing for softer landing 1. fwd jogging 2. back pedal 3. rebounding heel raises for impact Manual Therapy Treatment Consent Patient gave verbal consent for manual Yes treatment Soft Tissue Mobilization R knee Body Location HS, quad, TFL Mobilization Type Cross-Friction,Rolling Intensity/Depth Moderate Body Position Hooklying Comments Monitored for pain Joint Mobilizations R knee Joint tibiofemoral Direction AP for ext Grade III Body Position Supine Reps/Duration 2x30 ea PT-OP-T Assessment and Plan Start: 04/16/24 07:28 Freq: Status: Active Protocol: Document 07/06/24 09:48 NM (Rec: 07/06/24 10:29 NM [id number]) Physical Therapy Assessment Goals Five Impairment pain with stairs Short Term Goal (STG) Pt will be able to perform at least 8 step ups and step downs with R knee pain <5/10 in order to demonstrate improved form and symptom management 05/19/25: 20 4 step ups without knee pain, 10 on 6 stair STG Duration 8 weeks Senior Living Goal (LTG) Pt will report no limitation while performing standard flight of stairs or when ambulating on uneven surfaces in order to demonstrate improved symptom management 05/31/24: pt reports not having any trouble with stairs recently 06/21/24: no pain in R knee with 13 standard stairs (1 flight) LTG Duration 12 weeks MET Four Impairment pain at rest and with activity Short Term Goal (STG) Pt will report < 3/10 R knee pain at rest to demonstrate improved symptom management 05/19/24: reports 2/10 R knee pain at rest since PT 05/31/24: pt reports 1/10 in R knee pain at rest STG Duration 8 weeks MET Senior Living Goal (LTG) Pt will report < 3/10 R knee pain with activity to demonstrate improved symptom management 05/31/24: pt reports 3/10 R knee pain depending on the activity 06/17/24: ambulation 09/03, other exercises 10 if present; running 4-512/24: pt reports that she averages 0-2/10 with activity but not consistently, usually 0-1/10 LTG Duration 12 weeks MET Three Impairment pain with exercise Short Term Goal (STG) Pt will be provided education on safe exercise with HEP and will report compliance with HEP at least 3x/wk in order to maximize progression with PT. 05/19/24: following prescription on HEP sheet STG Duration 3 weeks MET Mail Rider Goal (LTG) Pt will report compliance with HEP or independent exercise at least 3x/wk in order to demonstrate improved carryover and maintenance with progression 06/21/24: compliant with HEP per exercise prescription LTG Duration 12 weeks MET Two Impairment strength R knee Short Term Goal (STG) Pt will improve R knee flexion /extension and R hip flexion/ abduction/extension strength to at least 4+/5 MMT in order to demonstrate increased strength for exercise and gait 05/19/24: 4/5 for all, pain free at knee 06/21/24: 4+/5 for all hip and knee, no pain STG Duration 8 weeks MET Mail Rider Goal (LTG) Pt will improve R knee flexion /extension and R hip flexion/ abduction/extension strength to at least 5/5 MMT in order to demonstrate increased strength for exercise and gait 06/21/24: 4+/5 for all hip and knee, no pain LTG Duration 12 weeks PROGRESSING One Impairment R knee extension AROM limited to 6 deg Short Term Goal (STG) Pt will improve R knee extension AROM to at least 3 deg in order to demonstrate improved TKE for gait 05/19/24: lacking 1 deg of R knee extension STG Duration 6 weeks MET Senior Living Goal (LTG) Pt will improve R knee extension AROM to <3 deg in order to demonstrate improved TKE for gait 05/19/24: lacking 1 deg of R knee extension 06/21/24: lacking 3 deg of ext post manual (lacking 5 deg ext at start of session) 07/06/24: lacking 1 deg of R knee ext w/o contraction, 0 deg ext w/ quad activation LTG Duration 12 weeks MET Progress Towards Goals Progress Towards Goals Progressing Toward Goals,Goals Met Progress Comments Met ROM goal Assessment Summary Assessment Pt tolerated session well, no R knee pain during session. Full knee ext today pre-manual therapy. Trialed impact training and jogging; pt pain free with all impact activities. Educated that pt can begin to incorporate gentle jogging at home if continues to be pain free but recommended gradual ease into jogging. Demos improved quad and lumbopelvic stability during single leg squats; able to progress to standing from standard chair on 1 leg. Has prn R knee valgus still at decreased depths but able to self correct with less cueing today. Good knee stability and no pain with twisting during single leg chop with toss. PT and pt discussed discharge at next session as pt has met all goals except strength goals and progressing well with symptom management; PT and pt in agreement. Physical Therapy Plan Frequency and Duration Frequency of Treatment 1-2x/wk Duration of treatment (weeks) 12 Plan of Care Start Date 04/16/24 Plan of Care End Date 07/09/24 Therapeutic Interventions Therapeutic Interventions Balance Training,Gait Training ,Home Exercise Program,Joint Mobilizations,Manual Therapy, Neuromuscular Re-education, Orthotic/Prosthetic Management ,Patient/Caregiver Education, Self-Care/Home Management, Sensory Integration,Soft Tissue Mobilization,Taping, Therapeutic Activities, Therapeutic Exercises Modalities Cold Pack/Ice Massage,Electric Stimulation,Hot Packs, Ultrasound Other Referrals/Consults Referrals/Consults Recommended . Next Visit Focus/Plan Next Note Type Discharge Summary Next Visit Plan Condense HEP. Cont with single leg strengthening and functional flexibility Manual: STM and joint mobilizations as needed Plan of care: proprioception, BOSU squat (future)
--- NOTE | 2024-07-09 09:45 | PT.OTN ---
Current Diagnoses Pain in unspecified knee (07/09/24) Stiffness of right knee, not elsewhere classified (07/09/24) Other lack of coordination (07/09/24) Weakness (07/09/24) Physical Therapy Treatment Note PT-OP-A Visit Information Start: 04/16/24 07:28 Freq: Status: Active Protocol: Document 07/09/24 07:27 NM (Rec: 07/09/24 07:28 NM [id number]) Out-Patient Physical Therapy Visit Information Visit Information Visit Type Discharge Summary Visit Start Time 09:04 Visit Stop Time 09:43 Visit Number 21 Evaluation Information Evaluation Date 04/16/24 Precautions Precautions hx of osteochondritis dessicans of R knee PT-OP-B Current Condition Start: 04/16/24 07:28 Freq: Status: Active Protocol: Document 04/16/24 08:15 NM (Rec: 04/16/24 09:03 NM [id number]) Current Condition History of Current Condition Onset Date chronic, 10 years ago Current Complaints pain, limited ROM History of Current Condition Pt reports that she injured her R knee with hyperextension at 10 years ago, states dx with OCD. States that she did not have any bracing or crutches; no surgery, no other treatment. Her R knee is bothering her, since she stepped in a rabbit hole at time of injury. She states it began getting worse 5 years ago, states became more aware of it. She states that is when she got a job, she was standing more which caused pain. Pt is planning to get in August, wants to get checked out for her knee. Recently, reports no changes other than hurting more frequently with activity, which is what prompted her to seek help. Pt reports that her knee bothers her when she works out (squats, lunges), going up stairs, unable to run very much, difficulty with cutting or turning, hills, uneven grounds, jumping. Pt reports that her knee has catches 2x in past (not recent, states can move and it will unlock), within last 7 years her knee has given out at least 5 times, cracks but not painful. Pt has gone to chiropractor, has has manual treatment. She has not seen an orthopedist. States that knee brace (sock brace)- compression helps on worse days. Prior Treatments and Tests MRI March 2024: questionable partial meniscocapsular tearing at posterior horn of medial meniscus, intact cruciate and collateral ligaments, no acute trabecular bone injury or focal cartilage defect, small joint effusion Treatment Goals Patient/Caregiver Goals increase ROM, decrease discomfort levels Current Functional Impairments (Reported) Functional Limitations- Recreation/ work out (does not do a lot of Hobbies stretching)- every other day light gardening 3x/wk (1 year) one year ago 1x/day (at home- body wt) PT-OP-C Subjective Start: 04/16/24 07:28 Freq: Status: Active Protocol: Document 07/09/24 07:27 NM (Rec: 07/09/24 07:28 NM [id number]) OP-PT Subjective Patient Comments Patient Comments Pt reports no pain or discomfort. Pt reports minimal discomfort after jogging and ladders. States ready to discharge PT-OP-E Functional Tests Start: 04/16/24 07:28 Freq: Status: Active Protocol: Document 04/16/24 08:15 NM (Rec: 04/16/24 09:03 NM [id number]) Functional Tests Squat Test Score 1 Comments pain immediately after in anterior PT-OP-F Manual Assessment Start: 04/16/24 07:28 Freq: Status: Active Protocol: Document 04/16/24 08:15 NM (Rec: 04/16/24 09:03 NM [id number]) Manual Assessments Soft Tissue Assessment Soft Tissue Mobility Assessment Increased HS tightness bilaterally, R>L; small effusion around R knee Joint Mobility Assessment Joint Mobility Assessment Lacking R knee extension in stance, limited patellar mobility PT-OP-G Mobility & Gait Start: 04/16/24 07:28 Freq: Status: Active Protocol: Document 04/16/24 08:15 NM (Rec: 04/16/24 09:03 NM [id number]) OP Gait Assessment Gait Gait Assistance Required: Independent Distance (Feet) 150 Assistive Devices Assistive Device None Gait Deviations General Gait Pattern Antalgic Factors Limiting Gait Function Factors Limiting Gait Function Decreased Activity Tolerance, Decreased Strength,Limited Range of Motion Comments Gait Comments Demos slight external rotation of R knee, slight decrease in foot clearance Stair Climbing Evaluation Technique/Endurance Stair Climbing Technique Step Over Step Number of Steps Climbed 4 Stair Climbing Set # Repetitions (reps) 1 Comments Stair Climbing Comments Demos valgus of R knee, pain with stepping down fro 4 and 6 steps. Mild pain with step up PT-OP-J Posture/Palpation/Skin Start: 04/16/24 07:28 Freq: Status: Active Protocol: Document 04/16/24 08:15 NM (Rec: 04/16/24 09:03 NM [id number]) Posture Evaluation Position Standing Head/C-Spine Posture Forward Head Pelvis Posture Anteriorly Tilted Weight Distribution Balanced Hip Posture (L) Externally Rotated,(R) Externally Rotated Knee Posture (L) Genu Valgus,(R) Genu Valgus,(R) Excess Flexion Patellar Posture (L) Superior,(R) Superior,(R) Medially Tilted Ankle/Foot Posture (L) Neutral,(R) Neutral Comments Posture Comments less knee ext R Palpation Assessment Location R knee Palpation Details no joint line tenderness tenderness only patellar tendon, inferior pole of patellar, peripatellar PT-OP-K Range of Motion Start: 04/16/24 07:28 Freq: Status: Active Protocol: Document 07/09/24 07:27 NM (Rec: 07/09/24 07:28 NM [id number]) Knee Goniometric Range of Motion Knee Right Flexion Active (degrees) 150 Extension Active (degrees) 0 Comments HS length 110 in fernanda position 05/19/24: lacking 1 deg ext 06/18/24: lacking 5 deg of extension 07/09/24: 0 deg ext at start of session Left Flexion Active (degrees) 146 Extension Active (degrees) 0 Comments HS length 105 deg in fernanda position PT-OP-L Special Tests Start: 04/16/24 07:28 Freq: Status: Active Protocol: Document 04/16/24 08:15 NM (Rec: 04/16/24 09:03 NM [id number]) Special Tests Knee Special Tests Samantha Test Test Results + Comments clicking present but no increase in pain Apley's Compression Test Results - PT-OP-M Strength Start: 04/16/24 07:28 Freq: Status: Active Protocol: Document 07/09/24 07:27 NM (Rec: 07/09/24 07:28 NM [id number]) Hip Strength Hip Manual Muscle Testing Right Flexion (L2) 5 Normal Extension (S1) 5 Normal Abduction 5 Normal Adduction 4+ Good+ External Rotation 4+ Good+ Internal Rotation 4+ Good+ Comments 05/19/24: 4/5 for flex/abd 06/21/24: 4+/5 for all 07/09/24: 5/5 for flex, abd, ext Left Flexion (L2) 4+ Good+ Extension (S1) 4+ Good+ Abduction 4+ Good+ Adduction 4+ Good+ External Rotation 4+ Good+ Internal Rotation 4+ Good+ Knee Strength Knee Manual Muscle Testing Right Flexion (S2) 5 Normal Extension (L3) 5 Normal Comments pain with knee extension at patellar tendon 05/19/24: 4/5, no pain 06/21/24: 4+/5, no pain 07/09/24: 5/5, no pain Left Flexion (S2) 4+ Good+ Extension (L3) 4+ Good+ PT-OP-Q Treatments Start: 04/16/24 07:28 Freq: Status: Active Protocol: Document 07/09/24 07:27 NM (Rec: 07/09/24 07:28 NM [id number]) Therapeutic Exercises Supine Exercises SLR Supine Exercise Name HEP Side right Reps/Minutes 20 Comments maintains quad activation HS stretch Supine Exercise Name HEP with strap Side right Equipment Used from hooklying Reps/Minutes 60x2 Standing Exercises standing clam Standing Exercise Name single leg stance with slight squat (HEP) Side bilateral Resistance level 3 band at thighs Equipment Used foot on wall Reps/Minutes 15 ea single leg heel raise Standing Exercise Name 1. On step knees bent knees straight 2. on floor knee bent knee straight Side bilateral Resistance HEP for on step as able and knees bent Equipment Used 2 hand support for balance Reps/Minutes 15 each Comments full ROM single leg squat with band Standing Exercise Name HEP review- w/ hand support on chair Side bilateral Resistance level 2 band at thighs Reps/Minutes 2x10 ea Comments improved level pelvis, less knee valg if not dec depth lateral touch down Standing Exercise Name 6 (HEP) Side bilateral Equipment Used 1 hand support, hand on hip for self tactile cue Reps/Minutes 2x10 ea leg Comments focus on full knee extension when reaching upright 3 way with slider Standing Exercise Name no slider (HEP) Side bilateral Resistance level 3 band thighs Reps/Minutes 10 ea single leg RDL Standing Exercise Name HEP Side bilateral Resistance 5# db in 1 hand Reps/Minutes 2x10 ea Comments post HS stretch Other Exercises foam roller Other Exercise Name glutes, HS, calves, quads Equipment Used foam roller Reps/Minutes 2 min Comments post exercise Self-Care/Home Management Treatment Education Other Education Educated to perform all exercises bilaterally for maintenance program. PT also educated pt that she can mix- and-match exercises depending on outside activity level, maintenance recommended 3x/wk. Issued level 4 band for progression. Educated on progression up to 3x10 if exercises become easy, then working up up to 15 reps per set PT-OP-T Assessment and Plan Start: 04/16/24 07:28 Freq: Status: Active Protocol: Document 07/09/24 07:27 NM (Rec: 07/09/24 07:28 NM [id number]) Physical Therapy Assessment Goals Five Impairment pain with stairs Short Term Goal (STG) Pt will be able to perform at least 8 step ups and step downs with R knee pain <5/10 in order to demonstrate improved form and symptom management 05/19/25: 20 4 step ups without knee pain, 10 on 6 stair STG Duration 8 weeks Acid Painter Goal (LTG) Pt will report no limitation while performing standard flight of stairs or when ambulating on uneven surfaces in order to demonstrate improved symptom management 05/31/24: pt reports not having any trouble with stairs recently 06/21/24: no pain in R knee with 13 standard stairs (1 flight) LTG Duration 12 weeks MET Four Impairment pain at rest and with activity Short Term Goal (STG) Pt will report < 3/10 R knee pain at rest to demonstrate improved symptom management 05/19/24: reports 2/10 R knee pain at rest since PT 05/31/24: pt reports 1/10 in R knee pain at rest STG Duration 8 weeks MET Jail Goal (LTG) Pt will report < 3/10 R knee pain with activity to demonstrate improved symptom management 05/31/24: pt reports 3/10 R knee pain depending on the activity 06/17/24: ambulation 1/10, other exercises 1/10 if present; running 4-5/10 07/06/24: pt reports that she averages 0-2/10 with activity but not consistently, usually 0-1/10 LTG Duration 12 weeks MET Three Impairment pain with exercise Short Term Goal (STG) Pt will be provided education on safe exercise with HEP and will report compliance with HEP at least 3x/wk in order to maximize progression with PT. 05/19/24: following prescription on HEP sheet STG Duration 3 weeks MET Acid Painter Goal (LTG) Pt will report compliance with HEP or independent exercise at least 3x/wk in order to demonstrate improved carryover and maintenance with progression 06/21/24: compliant with HEP per exercise prescription LTG Duration 12 weeks MET Two Impairment strength R knee Short Term Goal (STG) Pt will improve R knee flexion /extension and R hip flexion/ abduction/extension strength to at least 4+/5 MMT in order to demonstrate increased strength for exercise and gait 05/19/24: 4/5 for all, pain free at knee 06/21/24: 4+/5 for all hip and knee, no pain STG Duration 8 weeks MET Jail Goal (LTG) Pt will improve R knee flexion /extension and R hip flexion/ abduction/extension strength to at least 5/5 MMT in order to demonstrate increased strength for exercise and gait 06/21/24: 4+/5 for all hip and knee, no pain 07/09/24: 5/5 for all knee and hip MMT, no pain LTG Duration 12 weeks MET One Impairment R knee extension AROM limited to 6 deg Short Term Goal (STG) Pt will improve R knee extension AROM to at least 3 deg in order to demonstrate improved TKE for gait 05/19/24: lacking 1 deg of R knee extension STG Duration 6 weeks MET Acid Painter Goal (LTG) Pt will improve R knee extension AROM to <3 deg in order to demonstrate improved TKE for gait 05/19/24: lacking 1 deg of R knee extension 06/21/24: lacking 3 deg of ext post manual (lacking 5 deg ext at start of session) 07/06/24: lacking 1 deg of R knee ext w/o contraction, 0 deg ext w/ quad activation 07/09/24: 0 deg extension LTG Duration 12 weeks MET Progress Towards Goals Progress Towards Goals Goals Met Assessment Summary Assessment Pt tolerated session well. Emphasis on establishing maintenance program to be performed 3x/wk. Minimal cues required for execution of exercises. Demos fewer instances of knee valgus during squats especially with increased depth. Single leg stability improved and maintains TKE. No knee pain during session. Has full R knee extension today at start of session. Physical Therapy Plan Frequency and Duration Frequency of Treatment 1-2x/wk Duration of treatment (weeks) 12 Plan of Care Start Date 04/16/24 Plan of Care End Date 07/09/24 Therapeutic Interventions Therapeutic Interventions Balance Training,Gait Training ,Home Exercise Program,Joint Mobilizations,Manual Therapy, Neuromuscular Re-education, Orthotic/Prosthetic Management ,Patient/Caregiver Education, Self-Care/Home Management, Sensory Integration,Soft Tissue Mobilization,Taping, Therapeutic Activities, Therapeutic Exercises Modalities Cold Pack/Ice Massage,Electric Stimulation,Hot Packs, Ultrasound Other Referrals/Consults Referrals/Consults Recommended . Discharge Physical Therapy Discharge Reasons Goals Met Discharge Comments Goals met and plan of care ending. PT and pt discussed discharge to maintenance program. Pt and PT in agreement. Issued maintenance HEP to be performed at least 3x/wk with plan for progressions with reps and resistance bands. Educated to follow up with PCP or garnishment specialist if symptoms return, change or worsen, or for new PT referral . Pt verbalizes understanding and will be discharged to maintenance program Next Visit Focus/Plan Next Note Type Discharge Summary Next Visit Plan discharge from PT
== END 2024-07-16 10:41 | disposition home or self-care (01) ==
LOC: PHYS 09:00
PROVIDERS: Family Provider Family Medicine; PCP Family Medicine; Referring Provider Family Medicine; Visit Provider Family Medicine
DX: M25.569 Pain in unspecified knee (principal); M25.661 Stiffness of right knee, not elsewhere classified; R53.1 Weakness; R27.8 Other lack of coordination
CPT/HCPCS: 97110; 97112; 97140; 97161; 97530

== ENCOUNTER → 2025-01-26 11:31 | Outpatient (CLI) | payer OTHER, SELFPAY ==
--- NOTE | 2025-01-26 11:33 | DI.US.S_ITS ---
PROCEDURE: US OB >= 14 WEEKS FETUS INDICATIONS: 20 WEEK ANATOMY SCAN OUTSIDE/PRIOR DATING DATA: Last menstrual period (LMP): 09/04/2024. LMP-based estimated date of delivery (PRIYA): 06/11/2025. First dating scan (date and location): 01/26/2025. Estimated date of delivery (PRIYA) from first dating scan: 06/09/2025. TECHNIQUE: Real-time scanning was performed of the fetus, with image documentation and biometric measurements. Endovaginal scanning: Not performed COMPARISON: None. FINDINGS: General: A single living intrauterine gestation is present. Presentation: Vertex. Placenta: Placental position is anterior, without previa. Amniotic fluid index: 18.5 cm, normal range is 5-24 cm. Single deepest vertical pocket is 7.1 cm. heart rate: 145 beats per minute. Maternal cervical canal: 4.2 cm long. Normal lower limit is 2.5 cm. biometrics: Biparietal diameter: 4.9 cm, 20 weeks 6 days Head circumference: 18.1 cm, 20 weeks 3 days Abdominal circumference: 15.7 cm, 20 weeks 6 days Femur length: 3.5 cm, 21 weeks 0 days Clinically estimated gestational age: 20 weeks 4 days Composite gestational age from present scan: 20 weeks 6 days Estimated weight and percentile: 383 g, 62 percentile. Anatomic survey: Neuro: Ventricles are non-dilated at less than 10 mm. Cisterna magna is normal at 3-11 mm. Cerebellum is normal in size and morphology. Nuchal skin fold: Normal at less than 6 mm between 14-21 weeks gestational age. Face: Nose and lips, facial profile are normal. Spine: No evidence for spina bifida. Heart: 4-chambered heart is present, with normal ventricular outflow tracts. Diaphragm: Diaphragm is intact. Stomach: Left-sided stomach is present. Kidneys: No hydronephrosis. Normal is less than 5 mm in 2nd trimester, less than 7 mm in 3rd trimester. Cord: 3-vessel cord has orthotopic insertion. Bladder: Normal in size. Extremities: All 4 extremities identified. IMPRESSION: 1. Camp living intrauterine at 20 weeks 6 days based on today's ultrasound. 62 percentile for weight. 2. Normal placenta and amniotic fluid. 3. Normal and complete anatomic survey. We strive to produce accurate, complete, and clear reports of imaging services. To assist us in improving patient care, this report was composed using standard report templates and voice recognition software. Therefore, it may contain abnormal punctuation, insertions and/or omissions. Occasional wrong-word or sound-alike substitutions may occur. Though we review the report and make efforts to correct it, we do recommend that the report be read carefully in proper context to recognize any text inaccuracies. Dictated by: Ismael Coronado M.D. on 01/27/2025 at 10:16 Approved by: Ismael Coronado M.D. on 01/27/2025 at 10:21
== END ==
LOC: US 11:32
PROVIDERS: Family Provider Family Medicine; PCP Family Medicine; Referring Provider Nurse Practitioner Obstetrics & Gynecology; Visit Provider Nurse Practitioner Obstetrics & Gynecology
DX: Z34.02 Encounter for supervision of normal first pregnancy, second trimester (principal); Z3A.20 20 weeks gestation of pregnancy
CPT/HCPCS: 76811

== ENCOUNTER → 2025-02-15 12:01 | Outpatient (CLI) | payer BC, OTHER, SELFPAY ==
--- NOTE | 2025-02-15 12:15 | DI.US.S_ITS ---
PROCEDURE: US SOFT TISSUE HEAD AND NECK INDICATIONS: Neck discomfort TECHNIQUE: Real-time scanning was performed of the neck region of interest, with image documentation. COMPARISON: None. FINDINGS: No abnormal cyst, solid mass, or enlarged lymph node. The visible vasculature appears within normal limits. IMPRESSION: No abnormalities. Dictated by: Mari Zelaya M.D. on 02/15/2025 at 14:41 Approved by: Mari Zelaya M.D. on 02/15/2025 at 14:42
== END ==
PROVIDERS: PCP Family Medicine; Referring Provider Family Medicine; Visit Provider Family Medicine
DX: M54.2 Cervicalgia (principal)
CPT/HCPCS: 76536